=== PATIENT | female | born 1945 | race Hispanic/Latino ===

== ENCOUNTER → 2020-01-14 | Day surgery (SDC) | payer MEDICARE ==
[~2020-01-14] MED LIST: ACETAMINOPHEN325 M1 PO; ASPIRIN EC81 MG PO; BETIMOL5 M1 OP; BISACODYL5 MG PO; CLONIDINE HCL0.1 MG PO; ELIQUIS5 MG PO; ERYTHROMYCIN250 M1 PO; FENTANYL CITRATE/PF 100MCG/2 ML INJ ONE; FERROUS SULFAT325 MG PO; HYOSCYAMINE 0.125 MG TAB ONE; IOPAMIDOL 370 MG/ML 200 ML INFUS..BTL INJ ONE; IRON PO; LASIX20 MG PO; LATANOPROST2.5 ML OP; LIDOCAINE HCL 2% LOCAL INJ 5 ML SDV VIAL INJ ONE; MAGNESIUM CITR296 ML PO; METOPROLOL TART50 MG PO; NITROGLYCERIN0.4 MG TOP; NITROGLYCERIN1 EAC1 TD; NOVOLOG100 UNIT/1 SC; NOVOLOG100 UNIT/1 SQ; PANTOPRAZOLE SO20 MG PO; PHENYLEPHRINE HCL 1% 10 MG/ML VIAL ONE; POTASSIUM CHLO20 ME1 PO; PROPOFOL IV EMULSION 10 MG/ML 20 ML VIAL ONE; SODIUM CHLORIDE 0.9% 50ML 50 ML ONE; TRADJENTA5 MG PO; TRAZODONE HCL50 MG PO; VESICARE5 MG PO; VITAMIN B-121000 MCG PO; ZOFRAN4 MG PO; vitamin d PO
[2020-01-14 14:45] VITALS: BP 117/74
== END | disposition home or self-care (01) ==
LOC: OR 11:45
PROVIDERS: ATTEND Internal Medicine Gastroenterology
DX: D64.9 Anemia, unspecified (principal); D12.5 Benign neoplasm of sigmoid colon; D12.3 Benign neoplasm of transverse colon; K31.7 Polyp of stomach and duodenum; K29.70 Gastritis, unspecified, without bleeding; K20.9 Esophagitis, unspecified; K44.9 Diaphragmatic hernia without obstruction or gangrene; K57.30 Diverticulosis of large intestine without perforation or abscess without bleeding; K64.8 Other hemorrhoids; R63.4 Abnormal weight loss; I69.354 Hemiplegia and hemiparesis following cerebral infarction affecting left non-dominant side; I10 Essential (primary) hypertension; E11.9 Type 2 diabetes mellitus without complications; Z79.82 Long term (current) use of aspirin; Z79.02 Long term (current) use of antithrombotics/antiplatelets; Z80.0 Family history of malignant neoplasm of digestive organs
CPT/HCPCS: 36415; 43239; 45380; 45381; 45385; 74177; 82948; 88305; 88312; 88331; J2001; J2370; J2704; J3010; Q9967; 45378; 45384

== ENCOUNTER 2020-01-16 18:15 | Inpatient (IN) | payer MEDICARE, OTHER ==
[~2020-01-16] VITALS: Ht 152.4 cm; Wt 68.0 kg
[~2020-01-16 18:15] MED LIST changes: -ELIQUIS5 MG PO; -ERYTHROMYCIN250 M1 PO; -FENTANYL CITRATE/PF 100MCG/2 ML INJ ONE; -HYOSCYAMINE 0.125 MG TAB ONE; -IOPAMIDOL 370 MG/ML 200 ML INFUS..BTL INJ ONE; -IRON PO; -LASIX20 MG PO; -LIDOCAINE HCL 2% LOCAL INJ 5 ML SDV VIAL INJ ONE; -NITROGLYCERIN0.4 MG TOP; -NOVOLOG100 UNIT/1 SQ; -PHENYLEPHRINE HCL 1% 10 MG/ML VIAL ONE; -POTASSIUM CHLO20 ME1 PO; -PROPOFOL IV EMULSION 10 MG/ML 20 ML VIAL ONE; -SODIUM CHLORIDE 0.9% 50ML 50 ML ONE; -ZOFRAN4 MG PO
--- OUTSIDE RECORDS SUMMARY | 2020-01-16 18:44 | XMS REPORT | Continuity of Care Document ---
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 Allergies, Adverse Reactions, Alerts This patient has no known allergies or adverse reactions. Medications This patient has no known medications. Procedures This patient has no known procedures. Results Test Description Test Time Test Comments Results Result Comments Source CT ABDOMEN/PELVIS W 2020-01-14 16:11:00 [facility] [address] [place] [address] Patient Name: CALVIN CARVER MR #: [id number] : 1945 Age/Sex: 74/F Req #: [id number] Adm Physician: Ordered by: ANA DOBSON MD Report #: [id number] Location: OR Room/Bed: Procedure: [id number] CT/CT ABDOMEN/PELVIS W Exam Date: 01/14/20 Exam Time: 1500 REPORT STATUS: Signed EXAM: CT Abdomen and Pelvis WITH intravenous contrast INDICATION: Gastric ulcer, anemia COMPARISON: None. TECHNIQUE: Abdomen and pelvis were scanned utilizing a multidetector helical scanner from the lung base to the pubic symphysis after administration of IV contrast. Coronal and sagittal reformations were obtained. Routine protocol was performed. Scan was performed during portal venous phase. IV CONTRAST: 100mL of Isovue 370 ORAL CONTRAST: Water RADIATION DOSE: Total DLP: 439 mGy*cm Dose modulation, iterative reconstruction, and/or weight based adjustment of the mA/kV was utilized to reduce the radiation dose to as low as reasonably achievable. FINDINGS: LOWER THORAX: Normal. HEPATOBILIARY: Severe diffuse hepatic steatosis. No focal liver lesion. No biliary ductal dilation. Multiple gallstones in the gallbladder. No definite CT evidence of cholecystitis. SPLEEN: No splenomegaly. PANCREAS: No focal masses or ductal dilatation. ADRENALS: No adrenal nodules. KIDNEYS/URETERS: 2 mm punctate left lower pole renal calculus. No hydronephrosis or hydroureter. Multiple right renal cysts measure up to 2.1 cm. PELVIC ORGANS/BLADDER: Calcified uterine fibroids. PERITONEUM / RETRO PERITONEUM: No free air or fluid. 6.5 cm anterior abdominal wall defect containing loops of large and small bowel. LYMPH NODES: No lymphadenopathy. VESSELS: Moderate atherosclerotic calcifications of the nonaneurysmal abdominal aorta and major branches appear GI TRACT: 8.5 cm segment of masslike wall thickening involving the ascending colon with associated intussusception of the terminal ileum. There is scattered foci of air within the thickened wall. Scattered diverticulosis without CT evidence of diverticulitis. Multiple loops of mildly dilated small bowel measure up to 3 cm with associated air-fluid levels, consistent with partial obstruction. BONES AND SOFT TISSUES: Age- indeterminate compression fracture of L3. No additional fracture or dislocation. IMPRESSION: 8.5 cm segment of masslike wall thickening involving the ascending colon with associated intussusception of the terminal ileum. Scattered foci of air within the thickened colonic wall. Per discussion with Dr. Dobson there was injection of a small amount of submucosal air during the recent colonoscopy so this air may be iatrogenic rather than reflective of necrosis. Mildly dilated loops of upstream small bowel measure up to 3.0cm with air-fluid levels, consistent with at least partial small bowel obstruction. Multiple gallstones in the gallbladder without definite CT evidence of cholecystitis. Severe diffuse hepatic steatosis. No focal liver lesion. Age-indeterminate L3 compression fracture. The above findings were discussed with Dr. Dobson on 01/14/2020 4:11 PM, who responded indicating that the communication was understood. Signed by: Nelly Dinh MD on 01/14/2020 4:34 PM Dictated By: NELLY DINH MD 1157 Transcribed By: PAO on 01/14/201633 COPY TO: ANA DOBSON MD
[2020-01-16] MEDS ORDERED: ENOXAPARIN INJ 80 MG/0.8 ML SYR SC ONE (18:45)
--- NOTE | 2020-01-16 18:52 | Emergency Department Note ---
History of Present Illnes History of Present Illness Chief Complaint: General Medicine Complaints History of Present Illness This is a 74 year old female FROM [facility] AT [place] FOR EVALUATION OF A DVT; PATIENT HAD AN ULTRASOUND YESTERDAY. PATIENT DENIES ANY PAIN, APPEARS IN NO DISTRESS, RESP EVEN AND NONLABORED. i spoke with dr lewis nolan, he wants pt evaluated for pulmonary embolism. 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 Onset (how long ago): day(s) (2) Location: bilateral leg swelling Quality: swelling Radiation: Reports non-radiation Severity: mild Onset quality: gradual Duration (how long): day(s) (2) Timing of current episode: constant Progression: unchanged Chronicity: new Context: Reports other (had venous doppler yesterday, results returned today positive for bilateral dvt); Denies recent illness, Denies recent surgery, Denies trauma/injury Relieving factors: none Exacerbating factors: none Associated symptoms: Reports denies other symptoms Treatments prior to arrival: none Past Medical/Family History Physician Review I have reviewed the patient's past medical and family history. Any updates have been documented here. Past Medical History Recent Fever: No Clinical Suspicion of Infectio: No New/Unexplained Change in Ment: No Past Medical History: Diabetes, Anemia, Depression, Other Mental Illness, Osteoarthritis Other Medical History: GLAUCOMA Social History Smoking Cessation: Never Smoker Alcohol Use: None Any Illegal Drug Use: No Family History Family history of heart diseas: No Review of Systems Review of Systems Constitutional: Reports no symptoms EENTM: Reports no symptoms Cardiovascular: Reports no symptoms Respiratory: Reports no symptoms Gastrointestinal: Reports no symptoms Genitourinary: Reports no symptoms Musculoskeletal: Reports as per HPI Integumentary: Reports no symptoms Neurological: Reports no symptoms Psychological: Reports no symptoms Endocrine: Reports no symptoms Hematological/Lymphatic: Reports no symptoms Physical Exam Related Data Allergies: Coded Allergies: No Known Allergies (Unverified , 01/16/20) Triage Vital Signs Vital Signs Date Time Temp Pulse Resp B/P (MAP) Pulse Ox O2 Delivery O2 Flow Rate FiO2 01/16/20 18:26 98.9 89 18 109/77 99 Room Air Vital signs reviewed: Yes Physical Exam CONSTITUTIONAL Constitutional: Present well-developed, Present well-nourished HENT HENT: Present normocephalic, Present atraumatic, Present oropharynx clear/moist, Present nose normal HENT L/R: Present left ext ear normal, Present right ext ear normal EYES Eyes: Reports PERRL, Reports conjunctivae normal NECK Neck: Present ROM normal PULMONARY Pulmonary: Present effort normal, Present breath sounds normal CARDIOVASCULAR Cardiovascular: Present regular rhythm, Present heart sounds normal, Present capillary refill normal, Present normal rate GASTROINTESTINAL Abdominal: Present soft, Present nontender, Present bowel sounds normal GENITOURINARY Genitourinary: Present exam deferred SKIN Skin: Present warm, Present dry MUSCULOSKELETAL Musculoskeletal: Present ROM normal, Present edema (non pitting) NEUROLOGICAL Neurological: Present alert, Present oriented x 3, Present no gross motor or sensory deficits PSYCHOLOGICAL Psychological: Present mood/affect normal, Present judgement normal Results Laboratory Laboratory Laboratory Tests Test 01/16/20 19:15 White Blood Count 10.11 x10e3/uL (4.8-10.8) Red Blood Count 3.66 x10e6/uL (3.6-5.1) Hemoglobin 10.9 g/dL (12.0-16.0) Hematocrit 33.9 % (34.2-44.1) Mean Corpuscular Volume 92.6 fL (81-99) Mean Corpuscular Hemoglobin 29.8 pg (28-32) Mean Corpuscular Hemoglobin Concent 32.2 g/dL (31-35) Red Cell Distribution Width 14.9 % (11.7-14.4) Platelet Count 283 x10e3/uL (140-360) Neutrophils (%) (Auto) 78.0 % (38.7-80.0) Lymphocytes (%) (Auto) 12.7 % (18.0-39.1) Monocytes (%) (Auto) 8.4 % (4.4-11.3) Eosinophils (%) (Auto) 0.2 % (0.0-6.0) Basophils (%) (Auto) 0.3 % (0.0-1.0) Neutrophils # (Auto) 7.9 (2.1-6.9) Lymphocytes # (Auto) 1.3 (1.0-3.2) Monocytes # (Auto) 0.9 (0.2-0.8) Eosinophils # (Auto) 0.0 (0.0-0.4) Basophils # (Auto) 0.0 (0.0-0.1) Absolute Immature Granulocyte (auto 0.04 x10e3/uL (0-0.1) Prothrombin Time 18.8 seconds (11.9-14.5) Prothromb Time International Ratio 1.49 Activated Partial Thromboplast Time 39.3 seconds (23.8-35.5) Sodium Level 137 mmol/L (136-145) Potassium Level 3.3 mmol/L (3.5-5.1) Chloride Level 103 mmol/L (98-107) Carbon Dioxide Level 25 mmol/L (22-29) Anion Gap 12.3 mmol/L (8-16) Blood Urea Nitrogen 18 mg/dL (7-26) Creatinine 1.01 mg/dL (0.57-1.11) Estimat Glomerular Filtration Rate 54 ML/MIN (60-) BUN/Creatinine Ratio 18 (6-25) Glucose Level 152 mg/dL (74-118) Calcium Level 7.6 mg/dL (8.4-10.2) Lab results reviewed: Yes Imaging Imaging results reviewed: Yes Impressions Procedure: [id number] CT/CT CHEST W Exam Date: 01/16/20 Exam Time: 2014 REPORT STATUS: Signed EXAM: CT Chest WITH contrast (PE Protocol) INDICATION: pe protocol COMPARISON: None TECHNIQUE: Chest was scanned utilizing a multidetector helical scanner from the lung apex through the level of the diaphragm after administration of IV contrast. Thin section reconstructions were obtained with special concentration on the pulmonary arteries. Coronal and sagittal reformations were obtained. Dose modulation, iterative reconstruction, and/or weight based adjustment of the mA/kV was utilized to reduce the radiation dose to as low as reasonably achievable. Pulmonary embolism protocol was performed. IV CONTRAST: 100 mL of Omnipaque 350 COMPLICATIONS: None RADIATION DOSE: Total DLP: 490.59 mGy*cm Estimated effective dose: (DLP x 0.014 x size factor) mSv CTDIvol has been reviewed. It is below the limits set by the Radiation Protocol Committee (RPC). FINDINGS: LINES/ TUBES: None. LUNGS AND AIRWAYS: There are filling defects within the segmental branch of the right middle lobe (series 2, image 50) and subsegmental branch of right lower lobe (series 2, image 73) compatible with pulmonary emboli. The lungs are unremarkable. Airways are normal. PLEURA: The pleural spaces are clear. HEART AND MEDIASTINUM: The left thyroid lobe is not well seen/atrophic. No mediastinal, hilar or axillary lymphadenopathy. The heart is normal in size.. There is no pericardial effusion. . Main pulmonary artery measures 2.5 cm in diameter and the ascending aorta measures 3.4 cm. UPPER ABDOMEN: There is marked wall thickening of the stomach could be due to gastritis. There are gallstones but no evidence of cholecystitis. Hepatic steatosis. BONES: There are degenerative changes in the spine. SOFT TISSUES: Unremarkable. IMPRESSION: Pulmonary emboli in the segmental branch of the right middle lobe and subsegmental branch of right lower lobe. No evidence of pulmonary infarction or right-sided heart is strain. Cholelithiasis with no evidence of cholecystitis. Moderate wall thickening of the stomach could be due to gastritis. Signed by: Nathaniel Cortes MD on 01/16/2020 9:11 PM Dictated By: NATHANIEL CORTES MD 10 Transcribed By: PAO on 01/16/202110 COPY TO: FRANKLIN SPENCE MD~ Procedures 12 Lead ECG Interpretation ECG Interpretation : ECG: ECG 1 Visitor Services Representative: Interpreted by ED physician Date: Jan 16, 2020 Time: 21:26 Prior ECG tracings: reviewed Rhythm: sinus rhythm Rate: normal BPM: 80 QRS axis: left Conduction: incomplete RBBB ST segments normal: No (NONSPECIFIC CHANGES) T waves normal: No (NON SPECIFIC CHANGES) Clinical Impression: abnormal ECG Assessment & Plan Medical Decision Making MDM pt with new diagnosis of bilateral dvt, sent to be evaluated for pe ct chest w ordered to eval for pulmonary embolism lovenox 70 mg sq ordered I SPOKE WITH DR Ji DOS SANTOS LOVENOX 70 MG SQ TIMES ONE NO OTHER BLOOD THINNERS AT THIS TIME I SPOKE WITH DR Lewis NOLAN AND DR Thom KAPLAN ADMIT INPATIENT Assessment & Plan Final Impression: (1) DVT (deep venous thrombosis) (2) Pulmonary embolus (3) Colonic mass Depart Disposition: ADMITTED Last Vital Signs Date Time Temp Pulse Resp B/P (MAP) Pulse Ox O2 Delivery O2 Flow Rate FiO2 01/16/20 18:26 98.9 89 18 109/77 99 Room Air Home Meds Reported Medications [vitamin d] No Conflict Check, 2000 UNITS PO DAILY 01/11/20 Cyanocobalamin (VITAMIN B-12) 1,000 Mcg Tab, 500 MCG PO DAILY, #30 TAB 01/11/20 Solifenacin Succinate (VESICARE) 5 Mg Tablet, 5 MG PO DAILY, #30 TAB 01/11/20 Trazodone Hcl (TRAZODONE HCL) 50 Mg Tablet, 50 MG PO HS, #30 TAB 01/11/20 Linagliptin (TRADJENTA) 5 Mg Tablet, 5 MG PO HS 01/11/20 Timolol (BETIMOL) 5 Ml Drops, 1 DROP OP HS 01/11/20 Pantoprazole Sodium (PANTOPRAZOLE SODIUM) 20 Mg Tablet.dr, 40 MG PO DAILY 01/11/20 Insulin Aspart (NOVOLOG) 100 Unit/1 Ml Cartridge, 5 UNITS SC BID, UNITS 01/11/20 Nitroglycerin (NITROGLYCERIN PATCH) 1 Each Patch.td24, 1 PATCH TD DAILY 01/11/20 Metoprolol Tartrate (METOPROLOL TARTRATE) 50 Mg Tablet, 50 MG PO BID, TAB 01/11/20 Magnesium Citrate (MAGNESIUM CITRATE) 296 Ml Solution, 10 OZ PO HS 01/11/20 Latanoprost (LATANOPROST) 2.5 Ml Drops, 2.5 ML OP HS, BOTTLE 01/11/20 Ferrous Sulfate (FERROUS SULFATE) 325 Mg Tablet, 325 MG PO BID 01/11/20 Clonidine Hcl (CLONIDINE HCL) 0.1 Mg Tablet, 1 TAB PO BID, #60 TAB 01/11/20 Bisacodyl (BISACODYL) 5 Mg Tablet.dr, 20 MG PO DAILY, TAB 01/11/20 Aspirin (ASPIRIN EC) 81 Mg Tablet.dr, 81 MG PO DAILY, #30 TAB 01/11/20 Acetaminophen (ACETAMINOPHEN) 325 Mg Tablet, 325 MG PO Q6H PRN for ELEVATED TEMPERATURE for 5 Days, TAB 01/11/20 Medications in the ED Enoxaparin Sodium 70 mg ONCE ONCE SC ; Start 01/16/20 at 18:45; Stop 01/16/20 at 18:46; Status UNV FRANKLIN SPENCE MD Jan 16, 2020 18:52
[2020-01-16 19:22] LABS: BASOPHILS % 0.3 % (0.0-1.0); EOSINOPHILS % 0.2 % (0.0-6.0); HEMATOCRIT 33.9 % (34.2-44.1); HEMOGLOBIN 10.9 g/dL (12.0-16.0); LYMPHOCYTES # (AUTO) 1.3 (1.0-3.2); LYMPHOCYTES % 12.7 % (18.0-39.1); MEAN CORPUSCULAR HEMOGLOBIN 29.8 pg (28-32); MEAN CORPUSCULAR HGB CONC 32.2 g/dL (31-35); MEAN CORPUSCULAR VOLUME 92.6 fL (81-99); MONOCYTES # (AUTO) 0.9 (0.2-0.8); MONOCYTES % 8.4 % (4.4-11.3); NEUTROPHILS # (AUTO) 7.9 (2.1-6.9); PLATELET COUNT 283 x10e3/uL (140-360); RED BLOOD COUNT 3.66 x10e6/uL (3.6-5.1); RED CELL DISTRIBUTION WIDTH 14.9 % (11.7-14.4)
[2020-01-16 19:31] LABS: INR 1.49; PROTHROMBIN TIME 18.8 seconds (11.9-14.5)
[2020-01-16 19:32] LABS: PARTIAL THROMBOPLASTIN TIME 39.3 seconds (23.8-35.5)
[2020-01-16 19:38] LABS: ANION GAP 12.3 mmol/L (8-16); CALCIUM 7.6 mg/dL (8.4-10.2); CREATININE, SERUM 1.01 mg/dL (0.57-1.11); POTASSIUM 3.3 mmol/L (3.5-5.1)
[2020-01-16] MEDS ORDERED: IOPAMIDOL 370 MG/ML 200 ML INFUS..BTL INJ ONE (20:41)
[2020-01-16] MEDS ORDERED: SODIUM CHLORIDE 0.9% 50ML 50 ML ONE (20:41)
--- NOTE | 2020-01-16 21:15 | Diagnostic Imaging Report ---
EXAM: CT Chest WITH contrast (PE Protocol) INDICATION: pe protocol COMPARISON: None TECHNIQUE: Chest was scanned utilizing a multidetector helical scanner from the lung apex through the level of the diaphragm after administration of IV contrast. Thin section reconstructions were obtained with special concentration on the pulmonary arteries. Coronal and sagittal reformations were obtained. Dose modulation, iterative reconstruction, and/or weight based adjustment of the mA/kV was utilized to reduce the radiation dose to as low as reasonably achievable. Pulmonary embolism protocol was performed. IV CONTRAST: 100 mL of Omnipaque 350 COMPLICATIONS: None RADIATION DOSE: Total DLP: 490.59 mGy*cm Estimated effective dose: (DLP x 0.014 x size factor) mSv CTDIvol has been reviewed. It is below the limits set by the Radiation Protocol Committee (RPC). FINDINGS: LINES/ TUBES: None. LUNGS AND AIRWAYS: There are filling defects within the segmental branch of the right middle lobe (series 2, image 50) and subsegmental branch of right lower lobe (series 2, image 73) compatible with pulmonary emboli. The lungs are unremarkable. Airways are normal. PLEURA: The pleural spaces are clear. HEART AND MEDIASTINUM: The left thyroid lobe is not well seen/atrophic. No mediastinal, hilar or axillary lymphadenopathy. The heart is normal in size.. There is no pericardial effusion. . Main pulmonary artery measures 2.5 cm in diameter and the ascending aorta measures 3.4 cm. UPPER ABDOMEN: There is marked wall thickening of the stomach could be due to gastritis. There are gallstones but no evidence of cholecystitis. Hepatic steatosis. BONES: There are degenerative changes in the spine. SOFT TISSUES: Unremarkable. IMPRESSION: Pulmonary emboli in the segmental branch of the right middle lobe and subsegmental branch of right lower lobe. No evidence of pulmonary infarction or right-sided heart is strain. Cholelithiasis with no evidence of cholecystitis. Moderate wall thickening of the stomach could be due to gastritis. Signed by: Nathaniel Saavedra MD on 01/16/2020 9:11 PM
[2020-01-16] MEDS ORDERED: ONDANSETRON HCL INJ 2MG/ML 2ML 2 MG/ML VIAL IV PRN (21:30)
[2020-01-16] MEDS ORDERED: DEXTROSE 50% SYRINGE 50 ML IV PRN (21:30)
[2020-01-16] MEDS ORDERED: SODIUM CHLORIDE FLUSH 10 ML SYR INJ PRN (21:30)
[2020-01-16] MEDS ORDERED: ELIQUIS5 MG PO (21:34)
[2020-01-16] MEDS ORDERED: TRADJENTA5 MG PO (21:34)
[2020-01-16] MEDS ORDERED: NOVOLOG100 UNIT/1 SC (21:34)
[2020-01-16] MEDS ORDERED: VITAMIN B-121000 MCG PO (21:34)
[2020-01-16] MEDS ORDERED: VESICARE5 MG PO (21:34)
--- OUTSIDE RECORDS SUMMARY | 2020-01-16 21:46 | XMS REPORT | Continuity of Care Document ---
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 Allergies, Adverse Reactions, Alerts This patient has no known allergies or adverse reactions. Medications This patient has no known medications. Procedures This patient has no known procedures. Results Test Description Test Time Test Comments Results Result Comments Source CT CHEST W 2020-01-16 21:02:00 [place] [address] Patient Name: CALVIN CARVER MR #: [id number] : 1945 Age/Sex: 74/F Req #: [id number] Adm Physician: Ordered by: FRANKLIN SPENCE MD Report #: [id number] Location: ER Room/Bed: Procedure: [id number] CT/CT CHEST W Exam Date: 01/16/20 Exam Time: 2014 REPORT STATUS: Signed EXAM: CT Chest WITH contrast (PE Protocol) INDICATION: pe protocol COMPARISON: None TECHNIQUE: Chest was scanned utilizing a multidetector helical scanner from the lung apex through the level of the diaphragm after administration of IV contrast. Thin section reconstructions were obtained with special concentration on the pulmonary arteries. Coronal and sagittal reformations were obtained. Dose modulation, iterative reconstruction, and/or weight based adjustment of the mA/kV was utilized to reduce the radiation dose to as low as reasonably achievable. Pulmonary embolism protocol was performed. IV CONTRAST: 100 mL of Omnipaque 350 COMPLICATIONS: None RADIATION DOSE: Total DLP: 490.59 mGy*cm Estimated effective dose: (DLP x 0.014 x size factor) mSv CTDIvol has been reviewed. It is below the limits set by the Radiation Protocol Committee (RPC). FINDINGS: LINES/ TUBES: None. LUNGS AND AIRWAYS: There are filling defects within the segmental branch of the right middle lobe (series 2, image 50) and subsegmental branch of right lower lobe (series 2, image 73) compatible with pulmonary emboli. The lungs are unremarkable. Airways are normal. PLEURA: The pleural spaces are clear. HEART AND MEDIASTINUM: The left thyroid lobe is not well seen/atrophic. No mediastinal, hilar or axillary lymphadenopathy. The heart is normal in size.. There is no pericardial effusion. . Main pulmonary artery measures 2.5 cm in diameter and the ascending aorta measures 3.4 cm. UPPER ABDOMEN: There is marked wall thickening of the stomach could be due to gastritis. There are gallstones but no evidence of cholecystitis. Hepatic steatosis. BONES: There are degenerative changes in the spine. SOFT TISSUES: Unremarkable. IMPRESSION: Pulmonary emboli in the segmental branch of the right middle lobe and subsegmental branch of right lower lobe. No evidence of pulmonary infarction or right-sided heart is strain. Cholelithiasis with no evidence of cholecystitis. Moderate wall thickening of the stomach could be due to gastritis. Signed by: Nathaniel Cortes MD on 01/16/2020 9:11 PM Dictated By: NATHANIEL CORTES MD 10 Transcribed By: PAO on 01/16/202110 COPY TO: FRANKLIN SPENCE MD CT ABDOMEN/PELVIS W 2020-01-14 16:11:00 [place] [address] Patient Name: CALVIN CARVER MR #: [id number] : 1945 Age/Sex: 74/F Req #: [id number] Adm Physician: Ordered by: ANA DOBSON MD Report #: [id number] Location: OR Room/Bed: Procedure: [id number] CT/CT ABDOMEN/PELVIS W Exam Date: 01/14/20 Exam [...] 4:34 PM Dictated By: NELLY DINH MD 1630 Transcribed By: PAO on 01/14/20 1634 COPY TO: ANA DOBSON MD
[2020-01-16 21:58] LABS: CREATINE KINASE MB 0.5 ng/mL (0-5.0)
--- NOTE | 2020-01-16 22:17 | NUR ---
Patient arrived to unit from ER via stretcher. Patient is reportedly blind. Vital signs stable, sinus rhythm in 80s per telemetry, no s/s of distress at this time. Oriented to room, hospital policies, and plan of care. Bed locked and in lowest position, side rails upx3, alarm on, call light placed within reach. Patient instructed to call for assistance if needed, verbalized understanding. All safety measures in place.
[2020-01-16 22:39] VITALS: BP 118/81
[2020-01-16 22:44] VITALS: BP 118/81
[2020-01-17] VITALS (8 sets, daily range): BP systolic 113–154; BP diastolic 70–89
--- NOTE | 2020-01-17 06:20 | NUR ---
Routine consult called to Dr. Francois. Spoke with . No new orders received at this time.
[2020-01-17 06:56] LABS: BASOPHILS # (AUTO) 0.1 (0.0-0.1); BASOPHILS % 0.7 % (0.0-1.0); EOSINOPHILS % 0.3 % (0.0-6.0); HEMOGLOBIN 10.8 g/dL (12.0-16.0); LYMPHOCYTES # (AUTO) 1.3 (1.0-3.2); LYMPHOCYTES % 14.6 % (18.0-39.1); MEAN CORPUSCULAR HEMOGLOBIN 30.7 pg (28-32); MEAN CORPUSCULAR HGB CONC 32.7 g/dL (31-35); MEAN CORPUSCULAR VOLUME 93.8 fL (81-99); MONOCYTES # (AUTO) 0.6 (0.2-0.8); NEUTROPHILS # (AUTO) 6.6 (2.1-6.9); NEUTROPHILS % 76.8 % (38.7-80.0); PLATELET COUNT 318 x10e3/uL (140-360); RED BLOOD COUNT 3.52 x10e6/uL (3.6-5.1)
--- NOTE | 2020-01-17 07:00 | NUR ---
Bedside report given to oncoming nurse. Patient resting quietly in bed, respirations even and unlabored, no s/s of distress at this time. All safety measures in place.
[2020-01-17 07:14] LABS: INR 1.44; PROTHROMBIN TIME 18.3 seconds (11.9-14.5)
[2020-01-17 07:15] LABS: PARTIAL THROMBOPLASTIN TIME 46.3 seconds (23.8-35.5)
[2020-01-17 07:24] LABS: ALANINE AMINOTRANSFERASE 9 IU/L (0-55); ALBUMIN 2.4 g/dL (3.5-5.0); ALKALINE PHOSPHATASE 71 IU/L (40-150); ANION GAP 11.3 mmol/L (8-16); BLOOD UREA NITROGEN 18 mg/dL (7-26); BUN/CREATININE RATIO 22 (6-25); CALCIUM 7.6 mg/dL (8.4-10.2); CARBON DIOXIDE 24 mmol/L (22-29); CHLORIDE 104 mmol/L (98-107); CREATININE, SERUM 0.83 mg/dL (0.57-1.11); EST GLOMERULAR FILTRATION RATE > 60 ML/MIN (60-); GLUCOSE 122 mg/dL (74-118); POTASSIUM 3.3 mmol/L (3.5-5.1); SODIUM 136 mmol/L (136-145)
[2020-01-17] MEDS: INSULIN REGULAR, HUMAN 100 UNIT/1 ML 3ML VIAL SQ SCH ×4 (07:30→20:26)
[2020-01-17 07:51] LABS: CREATINE KINASE MB 0.5 ng/mL (0-5.0)
[2020-01-17] MEDS: SODIUM CHLORIDE 0.9% 1000ML 1,000 ML IV SCH (10:45)
[2020-01-17] MEDS ORDERED: LIDOCAINE HCL 2% LOCAL 20 ML VIAL ONE (13:26)
[2020-01-17] MEDS ORDERED: FENTANYL CITRATE/PF 100MCG/2 ML INJ ONE (13:26)
[2020-01-17] MEDS ORDERED: MIDAZOLAM HCL 2 MG/2 ML VIAL ONE (13:26)
[2020-01-17] MEDS ORDERED: IOPAMIDOL 370 MG/ML 200 ML INFUS..BTL INJ ONE (13:27)
[2020-01-17] MEDS ORDERED: SODIUM CHLORIDE 0.9% 1000ML 1,000 ML ONE (13:27)
[2020-01-17] MEDS ORDERED: HEPARIN SOD/SOD CHLORIDE 2,000 ML ONE (13:27)
[2020-01-17 13:58] LABS: CREATINE KINASE MB 0.5 ng/mL (0-5.0)
[2020-01-17] MEDS ORDERED: DEXTROSE 50% SYRINGE 50 ML IV PRN (16:45)
[2020-01-17] MEDS ORDERED: ACETAMINOPHEN 325 MG TAB PO PRN (16:45)
--- NOTE | 2020-01-17 16:58 | NUR ---
bladder scan showed 373mL, inserted 16 fr mann per the orders of Dr. Shama Dobson
[2020-01-17] MEDS: METOPROLOL TARTRATE 50 MG TAB PO SCH (17:00)
[2020-01-17] MEDS: FERROUS SULFATE 325 MG TAB PO SCH (17:00)
[2020-01-17] MEDS ORDERED: METOPROLOL TARTRATE 25 MG TAB PO SCH (17:00)
--- NOTE | 2020-01-17 17:08 | Consultation ---
DATE OF CONSULTATION: Cardiac Consultation REASON FOR CONSULTATION: Extensive DVT, pulmonary embolism, colonic mass, consideration for surgery, prior CVAs, complex case. HISTORY OF PRESENT ILLNESS: Source of information, the patient's medical record, but more important, the patient's daughter, Ms. Cordova at phone #[phone]. Apparently, this is a 74-year-old lady, who is known with longstanding history of diabetes mellitus, hypertension, complication of diabetes mellitus including vision impairment. 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 The patient is having repeated fall. They were unable to take care of her. She is in [facility]. She needs quite a lot of care. She is to certain extent, not moving or not doing much of activities. Recently, she had workup for anemia, which revealed the presence of colonic mass. Most likely cancerous in origin. The patient is considered for surgery. The patient went yesterday to see Dr. Gong in preparation of surgery. She was having shortness of breath, leg swelling, and she was not good. He reviewed her record, he reviewed her data and he found that the patient also diagnosed on the with extensive DVT of both lower extremities and she was started on Eliquis. Because of the poor status and poor condition, he advised her to be admitted. The patient was admitted to the hospital. Venous Doppler scan in our facility showed extensive DVT of lower extremities as well as pulmonary embolism in the right lung in more than one lobe. The patient was given one dose of Lovenox and cardiac consultation is obtained. I visited with the patient, who is having mild respiratory distress. She cannot give much of information. She does not know much about her history definitely because she is demented. I talked to her daughter, who gave me all the above mentioned information. The patient basically having easy fatigability and shortness of breath on exertion, almost nonambulatory, totally dependent on her care. She had history of prior CVA x3 with extreme left-sided weakness. She is having repeated fall. She is almost nonambulatory. She is not aware of coronary artery disease, however, she had some workup 5 years ago. REVIEW OF SYSTEMS: Extensive and all taken from the daughter. GENERAL: Failure to thrive, weakness. HEENT: Very very poor vision, decreased hearing. PULMONARY AND CARDIAC: Class III shortness of breath on exertion, chest tightness, easy fatigability. Recently, the shortness of breath is progressively worse as well as swelling legs. No cough. No hemoptysis. GI: Constipation, incontinence. : Definitely urine incontinence, using diaper. MUSCULOSKELETAL: Aches and pain. NEUROLOGICAL: The patient is demented and she is having left body sided weakness with very limited motion on that side. ENDOCRINE: The patient is diabetic. HEMATOLOGY: Easy bruising, but no history of massive bleed. SOCIAL HISTORY: She lives in a [facility]. She is nonsmoker and non-alcohol drinker. Excellent family support. HOME MEDICATIONS: Include Lopressor 50 mg twice a day, nitroglycerin patch, clonidine, aspirin, Eliquis, iron sulfate, Protonix, Tradjenta, VESIcare, trazodone, and eye drops for glaucoma. ALLERGIES: NONE. PAST MEDICAL HISTORY: 1. Diabetes mellitus with severe end-organ damage. 2. Hypertension. 3. Chronic anemia. 4. Colonic mass. 5. CVA x3. 6. Residual severe left body sided weakness. 7. Dementia. 8. Repeated fall. 9. Coronary artery disease, but no need for intervention. 10. Admission with extensive bilateral DVT. 11. Pulmonary embolism documented by CT scan. FAMILY HISTORY: Strongly positive for diabetes mellitus, hypertension, and coronary artery disease. PHYSICAL EXAMINATION: GENERAL: Nice lady, totally confused. VITAL SIGNS: Height of 5 feet, weight of 150 pounds. Blood pressure 150/80, heart rate of 60, respiratory rate of 24, and temperature of 97.9 Fahrenheit. HEENT: Remarkable for decreased hearing and decreased vision. NECK: No elevation of jugular venous pulsation. CHEST: Bilateral crackles. HEART: PMI 5th left intercostal space. Normal first and second heart sound. ABDOMEN: Soft with good bowel sounds. EXTREMITIES: Swelling of bilateral extremity, right greater than left. NEUROLOGIC: Able to move right body with severe left body sided weakness. PSYCH: The patient is forgetful, pleasantly trying to answer the question. LABORATORY DATA: Sodium of 136, potassium 3.3, BUN of 18, and creatinine of 0.8. Hematocrit 33% and hemoglobin 10.8. CT chest showing pulmonary emboli in the right lung in multiple lobes. EKG showing sinus rhythm and nonspecific ST changes. Venous doppler showing extensive DVT of lower extremities. IMPRESSION AND PLAN: 1. Extensive deep venous thrombosis of the lower extremities with pulmonary embolism with respiratory distress. 2. Colonic mass. 3. Anemia. 4. Hypertension. 5. Diabetes mellitus with severe end-organ damage. 6. Multiple cerebrovascular accidents with sequela of left body sided weakness. 7. Very high probability of coronary artery disease. 8. Hypertension. From a cardiac point of view, the plan will be and we discussed the case with Dr. Gong, who is planning to do a surgery on her shortly in maybe a couple of weeks and with her daughter and option between palliative care or proceeding with IVC filter, cardiac stress test, echocardiogram in preparation for her planned surgery. Definitely anticoagulation needs to be done. High risk for complication definitely explained. Explained there is probably a clot in transition. All this was discussed and explained. Questions are answered. Ms. Cordova wants to proceed with IVC filter and workup preparation for her surgery. As soon as we establish a filter, we will resume anticoagulation. Procedure risks, benefit, IVC filter, need of removal, etc., all this discussed and explained. This was lengthy visit trying to gather the data, talk to the family, coordinating care, etc. Time about taking care of this patient of more than 90 minutes. MD CHRISTEL Armas/JAD /[id number]
[2020-01-17] MEDS ORDERED: REGADENOSON 0.4 MG/5 ML SYR IV ONE (17:36)
--- NOTE | 2020-01-17 17:45 | NUR ---
patient is in nuclear med getting resting portion of the stress test done. Dr farfan ordered no beta blockers and no caffeine, evening metoprolol was held.
[2020-01-17] MEDS: CLONIDINE HCL 0.1 MG TAB PO SCH (18:25)
--- NOTE | 2020-01-17 19:00 | NUR ---
Resumed care of patient. Patient awake and resting in bed, no s/s of distress at this time. Capellan catheter patent and draining cloudy yellow urine to gravity. All safety measures in place.
[2020-01-17] MEDS: LATANOPROST(OPTH) 2.5 ML BTL OP SCH (20:35)
[2020-01-17] MEDS: TRAZODONE HCL 50 MG TAB PO SCH (20:35)
--- NOTE | 2020-01-17 21:18 | Operative Report ---
DATE OF PROCEDURE: 01/17/2020 SURGEON: Madhu Francois MD TITLE OF PROCEDURE: Cardiac catheterization and an IVC filter placement. PATIENT CLINICAL PROFILE: This is a 74-year-old female, who was found to have significant clot burden in the bilateral lower extremities on venous Doppler as well as evidence of pulmonary embolism without RV strain in the segmental right middle lobe and subsegmental right lower lobe pulmonary arteries, who is referred for IVC filter due to her clot burden as well as her candidacy for oral anticoagulation. Thus, the patient came to the cardiac catheterization lab. PREPROCEDURE DIAGNOSES: Bilateral acute venous thromboembolism of the femoral veins and bilateral lower extremity veins, unspecified, acute segmental and subsegmental right pulmonary artery pulmonary embolism without RV strain. POSTPROCEDURE DIAGNOSES: Bilateral acute venous thromboembolism of the femoral veins and bilateral lower extremity veins, unspecified, acute segmental and subsegmental right pulmonary artery pulmonary embolism without RV strain. PROCEDURES PERFORMED: Ultrasound-guided left common femoral vein access with a micropuncture needle, IVC filter deployment with a Tiffanie vena cava filter to the inferior vena cava below the level of the bilateral renal veins. IVC filter contrast angiography. RADIO COMMUNICATION COORDINATOR: Jocelin Francois MD ANESTHESIA USED: Moderate sedation. DESCRIPTION OF PROCEDURE: The patient was brought to the cardiac catheterization laboratory after risks, benefits, and alternatives were discussed and she was agreeable to proceed with the planned intervention. The patient's bilateral groins were prepped and an ultrasound machine was used to determine the optimal area for insertion of the sheath for our IVC filter placement. We used the ultrasound to determine that the left femoral vein was the optimal place, which was free of clot in the superior portion. We thus used a micropuncture needle and gained accessed to the left femoral vein after which we used a 6-Czech sheath and inserted it to dilate the tract. Moderate sedation was given for a period of greater than 15-minute duration with monitoring of the patient's vitals, oxygen saturation, telemetry, non-invasive blood pressure, capnography by the press operator automatic and circulating nurse. After placement of the sheath, we advanced a 0.035 J wire up to the level of IVC ensuring that we were within the IVC proper up to the level of the right atrium. We then advanced the Toombs vena cava filter sheath over the dilator to the inferior vena cava to the level below the bilateral renal veins. The dilator and the wire were removed and contrast angiography was performed through the insertion sheath, which demonstrated adequate placement below the level of the bilateral renal veins. We then flushed the system with the IVC filter through the Tuohy. We then subsequently advanced this and unsheathed it into a satisfactory position below the level of the bilateral renal veins. Subsequently, we then removed the system over the J wire and applied manual pressure to achieve hemostasis to the left common femoral vein. FINDINGS: Successful placement of Tiffanie IVC filter to the inferior vena cava. DISPOSITION: Return the patient to the labor relations analyst area and monitor for complications. COMPLICATIONS: None. SPECIMENS: None. PLAN: Continue care and at least 3 to 4 hours of bedrest. Madhu Francois MD OJ/MODL /[id number] MTDD
[2020-01-18] VITALS (7 sets, daily range): BP systolic 99–130; BP diastolic 48–79
[2020-01-18] MEDS: SODIUM CHLORIDE 0.9% 1000ML 1,000 ML IV SCH ×2 (04:41→20:56)
[2020-01-18] MEDS: METOPROLOL TARTRATE 50 MG TAB PO SCH ×2 (05:00→17:23)
--- NOTE | 2020-01-18 05:26 | NUR ---
Metoprolol held as ordered by MD. Patient scheduled for stress test later this morning.
[2020-01-18 06:36] LABS: BASOPHILS % 0.5 % (0.0-1.0); EOSINOPHILS # (AUTO) 0.1 (0.0-0.4); EOSINOPHILS % 0.6 % (0.0-6.0); HEMATOCRIT 34.1 % (34.2-44.1); HEMOGLOBIN 10.7 g/dL (12.0-16.0); LYMPHOCYTES # (AUTO) 1.2 (1.0-3.2); MEAN CORPUSCULAR HEMOGLOBIN 29.7 pg (28-32); MEAN CORPUSCULAR HGB CONC 31.4 g/dL (31-35); MEAN CORPUSCULAR VOLUME 94.7 fL (81-99); MONOCYTES # (AUTO) 0.7 (0.2-0.8); MONOCYTES % 8.6 % (4.4-11.3); NEUTROPHILS # (AUTO) 6.5 (2.1-6.9); NEUTROPHILS % 75.8 % (38.7-80.0); PLATELET COUNT 274 x10e3/uL (140-360)
[2020-01-18 06:54] LABS: ALANINE AMINOTRANSFERASE 9 IU/L (0-55); ALBUMIN 2.1 g/dL (3.5-5.0); ALKALINE PHOSPHATASE 62 IU/L (40-150); ANION GAP 11.7 mmol/L (8-16); BLOOD UREA NITROGEN 16 mg/dL (7-26); BUN/CREATININE RATIO 22 (6-25); CALCIUM 7.1 mg/dL (8.4-10.2); CARBON DIOXIDE 23 mmol/L (22-29); CHLORIDE 107 mmol/L (98-107); CREATININE, SERUM 0.72 mg/dL (0.57-1.11); EST GLOMERULAR FILTRATION RATE > 60 ML/MIN (60-); GLUCOSE 93 mg/dL (74-118); POTASSIUM 3.7 mmol/L (3.5-5.1); SODIUM 138 mmol/L (136-145)
[2020-01-18] MEDS: INSULIN REGULAR, HUMAN 100 UNIT/1 ML 3ML VIAL SQ SCH ×4 (07:30→21:00)
--- NOTE | 2020-01-18 07:38 | NUR ---
PATIENT IN BED RESTING WITH EYES CLOSED, NO DISTRESS NOTED. IV FLUID INFUSING ORDERED, ROBERTSON CATHETER WITH CLEAR YELLOW URINE. BED IN LOWER POSITION, CALL LIGHT AT REACH.
[2020-01-18] MEDS: FERROUS SULFATE 325 MG TAB PO SCH ×2 (09:00→17:23)
[2020-01-18] MEDS: CLONIDINE HCL 0.1 MG TAB PO SCH ×2 (09:00→17:00)
--- NOTE | 2020-01-18 09:40 | NUR ---
PATIENT OFF UNIT FOR A PROCEDURE.
--- NOTE | 2020-01-18 12:15 | NUR ---
PATIENT BACK TO UNIT FROM NUCLEAR MEDICINE, HAD A STRESS TEST. DENIED PAIN AT THIS TIME. REPOSITIONED IN BED. V/S 97.6-110-18-99/68 AND 96% ON RA.
[2020-01-18] MEDS: SOLIFENACIN SUCCINATE 5 MG TAB PO SCH (12:24)
[2020-01-18] MEDS: ASPIRIN 81 MG ENTERIC COATED PO SCH (12:24)
[2020-01-18] MEDS: APIXABAN 5 MG TABLET PO SCH (12:24)
[2020-01-18] MEDS: CYANOCOBALAMIN 1,000 MCG TAB PO SCH (12:24)
--- NOTE | 2020-01-18 13:08 | NUR ---
PATIENT ASSISTED WITH LUNCH, IN BED RESTING WITH NO S/S OF DISTRESS. CALL LIGHT AT REACH.
--- NOTE | 2020-01-18 14:12 | Myoview Stress Test ---
DATE OF STUDY: 01/17/2020 10:03:00 Stress Test - Treadmill ONLY This is associated with dictation ID #[id number]. TITLE OF REPORT: Lexiscan nuclear stress test. INDICATION FOR STUDY: This is a 74-year-old lady with multiple comorbidities including blindness, who is unable to exercise, found to have a colonic mass and is in need for ischemic risk stratification prior to undertaking GI operation. The patient is unable to exercise due to her clinical state. DESCRIPTION OF PROCEDURE: After risks, benefits, pros, and cons of today's Lexiscan nuclear stress test explained to the patient, the patient agreed to proceed. This is a 2-day protocol. Initially, she came on January 17, 2020, received an 11 mCi dose of technetium-99m tetrofosmin intravenously. After 40 minutes, the patient was taken to the [facility] SPECT camera for resting myocardial perfusion imaging. The next day, the patient was then brought to the stress lab where 12-lead EKG monitoring and blood pressure monitoring were obtained. She received a dose of Lexiscan 0.4 mg intravenously followed by 30.4 mCi dose of technetium-99m tetrofosmin intravenously. Resting heart rate guerline from a baseline of 87 beats per minute to a maximum of 104 beats per minute. Blood pressure went from baseline of 140/95 down to 95/50, which is an appropriate hemodynamic response. With Lexiscan infusion, there were no chest pain symptoms or ST-T changes. Underlying EKG reveals the presence of sinus rhythm, incomplete right bundle-branch block and inferior Q-waves in 3 and aVF, and again with Lexiscan infusion, there were no ischemic EKG changes or symptoms. After 25 minutes, the patient was then taken to the SPECT camera for stress myocardial perfusion imaging. FINDINGS: 1. Resting myocardial perfusion imaging reveals a moderate area of decreased uptake in the inferior wall. 2. Stress myocardial perfusion imaging reveals the same moderate area of decreased uptake in the inferior wall, appears largely unchanged. 3. The following gated measurements were obtained. End-diastolic volume was 29 mL, end systolic volume 10 mL, calculated left ventricular ejection fraction is 67%, has notable small cavity and wall motion seems to be notable for inferior wall hypokinesis. CONCLUSIONS: 1. Abnormal myocardial perfusion imaging study revealing a moderate-sized area of decreased uptake in the inferior wall matched at rest and stress compatible with scar, but no ischemia noted. 2. Normal left ventricular function with calculated ejection fraction of 67% with notable inferior wall hypokinesis, which is compatible with old PA. 3. Overall, this stress test shows no areas of ischemia, but rather an area of moderate-sized fixed and decreased uptake in the inferior wall compatible with an old PA. MD JORDY Dc/JAD /[id number]
--- NOTE | 2020-01-18 16:15 | NUR ---
PATIENT IN BED RESTING WITH HEAD OF BED ELEVATED. CALL LIGHT AT REACH.
--- NOTE | 2020-01-18 19:00 | NUR ---
Resumed care of patient. Patient resting quietly in bed, respirations even and unlabored on room air, no s/s of distress at this time. All safety measures in place.
[2020-01-18] MEDS: TRAZODONE HCL 50 MG TAB PO SCH (21:00)
[2020-01-18] MEDS: LATANOPROST(OPTH) 2.5 ML BTL OP SCH (21:19)
[2020-01-19] VITALS: BP 103/68
[2020-01-19] MEDS: SODIUM CHLORIDE 0.9% 1000ML 1,000 ML IV SCH (03:45)
[2020-01-19 04:00] VITALS: BP 98/64
[2020-01-19] MEDS: METOPROLOL TARTRATE 50 MG TAB PO SCH ×2 (04:30→17:28)
[2020-01-19 07:10] VITALS: BP 117/68
--- NOTE | 2020-01-19 07:10 | NUR ---
PATIENT IN BED RESTING WITH EYES CLOSED, NO DISTRESS NOTED. ALL PERSONAL ITEMS CLOSE TO PATIENT. CALL LIGHT AT REACH.
[2020-01-19] MEDS: INSULIN REGULAR, HUMAN 100 UNIT/1 ML 3ML VIAL SQ SCH ×3 (07:30→16:30)
[2020-01-19 08:22] VITALS: BP 117/68
[2020-01-19] MEDS: CYANOCOBALAMIN 1,000 MCG TAB PO SCH (09:14)
[2020-01-19] MEDS: APIXABAN 5 MG TABLET PO SCH (09:14)
[2020-01-19] MEDS: ASPIRIN 81 MG ENTERIC COATED PO SCH (09:14)
[2020-01-19] MEDS: FERROUS SULFATE 325 MG TAB PO SCH ×2 (09:14→17:28)
[2020-01-19] MEDS: SOLIFENACIN SUCCINATE 5 MG TAB PO SCH (09:14)
[2020-01-19] MEDS: CLONIDINE HCL 0.1 MG TAB PO SCH (09:14)
--- NOTE | 2020-01-19 11:05 | NUR ---
PATIENT REPOSITIONED IN BED, RESTING WITH NO S/S OF DISCOMFORT. CALL LIGHT AT REACH.
[2020-01-19 11:45] VITALS: BP 96/68
--- NOTE | 2020-01-19 13:11 | Progress Note ---
DATE: 01/19/2020 CHIEF COMPLAINT/HISTORY OF PRESENT ILLNESS: This is a 74-year-old woman, whose primary treatment diagnosis is extensive bilateral lower extremity deep venous thrombosis and pulmonary embolism. The patient voices no complaints today. The patient yesterday underwent IVC filter placement by Dr. Madhu Francois. The patient underwent echocardiogram on January 17, 2020, that revealed diastolic dysfunction with preserved left ventricular ejection fraction of 55%-60%. The patient was started on apixaban 5 mg twice a day today by her financial intern, namely Dr. Maico Francois. Blood work performed yesterday January 18, 2020. revealed BUN and creatinine of 16 and 0.72 respectively. The patient's potassium is 3.7. The patient's hemoglobin on January 18, 2020 was 10.7 g/dL. REVIEW OF SYSTEMS: As per HPI. PHYSICAL EXAMINATION: GENERAL: She is awake. She is alert. She gets confused easily. She is very pleasant and cooperative on exam. She does not appear to be any obvious distress. VITAL SIGNS: Height 5 feet 0 inches, weight 150 pounds, BMI 29. Blood pressure is 96/68, pulse 68, respiratory rate 16, temperature 96.5, oxygen saturation 98% on room air. INTEGUMENT: Skin is warm and dry. Slight pallor. No jaundice or diaphoresis. HEENT: Anicteric sclerae. Moist mucous membranes. The patient is legally blind. NECK: Supple. CARDIOVASCULAR: Distant heart sounds. Regular rate and rhythm with an S3 gallop. LUNGS: No rales. No rhonchi or wheezes. ABDOMEN: Mild obesity, benign. EXTREMITIES: No edema or deformity. NEUROLOGIC: The patient has left hemiparesis from old stroke. DIAGNOSES: 1. Acute pulmonary embolism. 2. Bilateral lower extremity deep venous thrombosis. 3. Cerebrovascular disease (history of old cerebrovascular accident with residual left hemiparesis). 4. 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 5. Status post IVC filter placement. 6. Chronic diastolic congestive heart failure. PLAN: 1. Agree with apixaban in the form of Eliquis 5 mg twice a day for pulmonary embolism and for bilateral lower extremity deep venous thrombosis. 2. Continue congestive heart failure medical management with metoprolol tartrate. 3. Discharge planning as per Cardiology. I spent 30 minutes in the care of the patient. Darian E MD CORTNEY Malik/JAD /[id number] MTDPiter
--- NOTE | 2020-01-19 13:13 | NUR ---
PT IS BEING DISCHARGED, SHE IS CURRENTLY RESIDING AT [facility] IN [place]([address]) . SW CONTACTED [id number], SPOKE WITH ADMN NURSE [place] AND CONFIRMED THAT PT IS A RESIDENT THERE AND CAN RETURN. RTF COMPLETED AND GIVEN TO THE NURSE.
--- NOTE | 2020-01-19 13:16 | Discharge Summary ---
ADMIT DIAGNOSES: 1. Acute right-sided pulmonary embolism. 2. Acute bilateral lower extremity deep venous thrombosis. 3. Cerebrovascular disease (history of CVA with residual left hemiparesis). 4. Blindness secondary to diabetes mellitus. 5. Chronic diastolic congestive heart failure. 6. Colonic mass (suspicious for malignancy). DISCHARGE DIAGNOSES: 1. Status post inferior vena cava filter placement. 2. Acute right-sided pulmonary embolism. 3. Extensive bilateral lower extremity deep venous thrombosis. 4. Blindness secondary to type 2 diabetes mellitus. 5. Cerebrovascular disease (history of CVA with left-sided weakness). 6. Colonic mass (suspicious for malignancy). HOSPITAL COURSE: This is a 74-year-old woman, who has a history of blindness secondary to diabetes mellitus as well as an old cerebrovascular accident with residual left-sided weakness. The patient was admitted to [facility] with diagnosis of acute right-sided pulmonary embolism as well as acute extensive lower extremity deep venous thrombosis. Moreover, the patient has a suspicious colonic mass. During this hospitalization, the patient had an inferior vena cava filter placement placed by Dr. Madhu Francois. The patient was also seen by Maico Francois for cardiac clearance. The patient was cleared by Cardiology for tentative colonic surgery in the near future. On admission CT of the chest with intravenous contrast revealed findings consistent with right-sided pulmonary embolism. The patient was also found to have lower extremity deep venous thrombosis during the stay. The patient was started on apixaban in the form of Eliquis 5 mg twice a day, which she tolerated quite well. The decision was made to transfer patient back to her long-term namely [facility] in [place], [place]. CONDITION ON DISCHARGE: Stable. DISCHARGE MEDICATIONS: 1. Eliquis 5 mg b.i.d. 2. Acetaminophen 325 mg every 6 hours p.r.n. fever. 3. Aspirin 81 mg daily. 4. Vitamin B12 1000 mcg daily. 5. Ferrous sulfate 325 mg b.i.d. 6. Latanoprost one drop to each eye at night. 7. Metoprolol tartrate 50 mg b.i.d. 8. Pantoprazole 40 mg daily. 9. VESIcare 5 mg daily. 10. Trazodone 50 mg at bedtime. 11. Vitamin D3 2000 units daily. The patient was instructed to stop clonidine, NovoLog insulin, linagliptin and nitroglycerin patch, she was told to stop these four medicines under further notice. FOLLOWUP INSTRUCTIONS: The patient will be transferred back to [facility] here in [place], [place] today. The long-term was given instructions for the patient to follow up Dr. Augie Gong in 2 weeks, so arrangements could be made for tentative colonic mass resection soon thereafter. MD CORTNEY Song/JAD /[id number] cc: MD Augie Armas MD MTDD
[2020-01-19 15:31] VITALS: BP 105/74
--- NOTE | 2020-01-19 15:49 | NUR ---
PATIENT ASSISTED WITH DIAPER CHANGE, HAD A LARGE BM. REPOSITIONED IN BED, CALL LIGHT AT REACH.
[2020-01-19] MEDS ORDERED: APIXABAN 5 MG TABLET PO SCH (17:00)
--- NOTE | 2020-01-19 17:20 | NUR ---
ROBERTSON CATHETER DISCONTINUED AT 15:00, PATIENT VOIDED YELLOW URINE TO DIAPER AT THIS TIME. DIAPER CHANGED AND PATIENT REPOSITIONED IN BED. CALL LIGHT AT REACH.
--- NOTE | 2020-01-19 18:05 | NUR ---
PATIENT TRANSFERRED TO SNF FACILITY. REPORT CALLED AND GIVEN TO RECEIVING NURSE. TRANSFER MAR FAXED TO THE FACILITY. IV TO RIGHT AC REMOVED WITH TIP INTACT. PATIENT'S DAUGHTER NOTIFIED OF THE TRANSFER. ALL PERSONAL ITEMS TAKEN WITH PATIENT. LEFT UNIT ON STRETCHER PER AMBULANCE IN STABLE CONDITION.
== END 2020-01-19 18:02 | DRG 299 ==
LOC: ER 18:42 → ERHOLD 21:28 → MED/SURG3 22:25
PROC: 06H03DZ Insertion of Intraluminal Device into Inferior Vena Cava, Percutaneous Approach (ICD-10-PCS; principal; 2020-01-16)
PROC: B51D1ZZ Fluoroscopy of Bilateral Lower Extremity Veins using Low Osmolar Contrast (ICD-10-PCS; 2020-01-16)
DX: I82.413 Acute embolism and thrombosis of femoral vein, bilateral (principal); I26.99 Other pulmonary embolism without acute cor pulmonale; I69.954 Hemiplegia and hemiparesis following unspecified cerebrovascular disease affecting left non-dominant side; I50.32 Chronic diastolic (congestive) heart failure; C18.9 Malignant neoplasm of colon, unspecified; I82.443 Acute embolism and thrombosis of tibial vein, bilateral; I82.431 Acute embolism and thrombosis of right popliteal vein; R06.03 Acute respiratory distress; D64.9 Anemia, unspecified; R62.7 Adult failure to thrive; I11.0 Hypertensive heart disease with heart failure; F32.9 Major depressive disorder, single episode, unspecified; E11.39 Type 2 diabetes mellitus with other diabetic ophthalmic complication; H54.8 Legal blindness, as defined in USA; Z91.81 History of falling; Z83.3 Family history of diabetes mellitus; Z82.49 Family history of ischemic heart disease and other diseases of the circulatory system; Z11.59 Encounter for screening for other viral diseases; Z68.39 Body mass index [BMI] 39.0-39.9, adult
CPT/HCPCS: 36415; 37191; 71260; 75825; 78452; 80048; 80053; 82550; 82553; 82948; 84443; 84484; 85025; 85610; 85730; 93005; 93017; 93306; 93880; 93970; 99152; 99284; A9502; C1880; J1650; J1817; J2001; J2250; J3010; J7030; Q9967

== ENCOUNTER 2020-02-18 07:21 | Inpatient (IN) | payer MEDICARE, OTHER ==
[~2020-02-18] VITALS: Ht 152.4 cm; Wt 69.1 kg
[2020-02-18] VITALS (16 sets, daily range): BP systolic 80–117; BP diastolic 49–90
[~2020-02-18 07:21] MED LIST changes: +ELIQUIS5 MG PO; +ERYTHROMYCIN250 M1 PO; +IRON PO; +LASIX20 MG PO; +NITROGLYCERIN0.4 MG TOP; +NOVOLOG100 UNIT/1 SQ; +POTASSIUM CHLO20 ME1 PO
[2020-02-18] MEDS ORDERED: ASPIRIN 81 MG CHEW TAB PO ONE (07:30)
--- NOTE | 2020-02-18 07:30 | NUR ---
Gear Repairer responded to rapid at [facility]. Gear Repairer met pt's daughter and provided empathic listening and calming pastoral presence. Pt's daughter expressing emotions thru words and tears. Escorted pt's daughter to ED Waiting Room. Will follow as able. [facility] O: [phone]
[2020-02-18 08:18] LABS: BASOPHILS % 0.3 % (0.0-1.0); EOSINOPHILS % 0.3 % (0.0-6.0); HEMATOCRIT 27.3 % (34.2-44.1); HEMOGLOBIN 8.5 g/dL (12.0-16.0); LYMPHOCYTES # (AUTO) 1.2 (1.0-3.2); LYMPHOCYTES % 10.7 % (18.0-39.1); MEAN CORPUSCULAR HGB CONC 31.1 g/dL (31-35); MEAN CORPUSCULAR VOLUME 102.6 fL (81-99); MONOCYTES # (AUTO) 0.4 (0.2-0.8); MONOCYTES % 3.7 % (4.4-11.3); NEUTROPHILS # (AUTO) 9.1 (2.1-6.9); NEUTROPHILS % 83.3 % (38.7-80.0); PLATELET COUNT 249 x10e3/uL (140-360); RED BLOOD COUNT 2.66 x10e6/uL (3.6-5.1); RED CELL DISTRIBUTION WIDTH 20.3 % (11.7-14.4)
[2020-02-18 08:19] LABS: INR 1.15; PROTHROMBIN TIME 15.3 seconds (11.9-14.5)
[2020-02-18] MEDS ORDERED: CEFEPIME 1GM/NS 0.9% 50 ML 50 ML IV STA (08:23)
[2020-02-18] MEDS ORDERED: SODIUM CHLORIDE 0.9% 1000ML 1,000 ML IV STA ×2 (08:29)
[2020-02-18] MEDS ORDERED: VANCOMYCIN 1GM/NS 250 ML 250 ML IV STA (08:29)
[2020-02-18 08:32] LABS: ALANINE AMINOTRANSFERASE 20 IU/L (0-55); ALBUMIN 1.4 g/dL (3.5-5.0); ALBUMIN/GLOBULIN RATIO 0.6 (0.8-2.0); ALKALINE PHOSPHATASE 103 IU/L (40-150); ANION GAP 15.4 mmol/L (8-16); BLOOD UREA NITROGEN 18 mg/dL (7-26); BUN/CREATININE RATIO 20 (6-25); CALCIUM 7.1 mg/dL (8.4-10.2); CARBON DIOXIDE 19 mmol/L (22-29); CHLORIDE 103 mmol/L (98-107); CREATINE KINASE 57 IU/L (29-168); EST GLOMERULAR FILTRATION RATE > 60 ML/MIN (60-); GLUCOSE 187 mg/dL (74-118); POTASSIUM 4.4 mmol/L (3.5-5.1); SODIUM 133 mmol/L (136-145)
[2020-02-18] MEDS ORDERED: SODIUM CHLORIDE 0.9% 1000ML 2,000 ML ONE (08:42)
--- NOTE | 2020-02-18 08:43 | Emergency Department Note ---
History of Present Illnes History of Present Illness Chief Complaint: Sepsis History of Present Illness This is a 74 year old female arrived to the ED for colonic resection, rapid response called in the lobby for patient being altered and having partial syncopal event. Chief Complaint Comment PATIENT IN FROM [facility]; PATIENT INITIALLY FOR OUTPATIENT SURGERY. AFTER REGISTRATION A RAPID RESPONSE WAS CALLED. PATIENT FOUND TO BE TACHYCARDIC AND WEAK WITH O2 SATS 85% ON ROOM AIR. PATIENT PLACED ON NONREBREATHER. 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, Family Member Arrival Mode: Car Onset (how long ago): hour(s) Radiation: Reports non-radiation Severity: mild Duration (how long): hour(s) Timing of current episode: constant, unable to specify Progression: worsening Chronicity: new Context: Reports recent illness Past Medical/Family History Physician Review I have reviewed the patient's past medical and family history. Any updates have been documented here. Past Medical History Recent Fever: No Clinical Suspicion of Infectio: Yes New/Unexplained Change in Ment: No Past Medical History: Hypertension, Diabetes, Anemia, Depression, Osteoarthritis Other Medical History: Glaucoma, blindness Past Surgical History: Other Surgery: EGD, colonoscopy Social History Physically hurt or threatened: No Review of Systems ROS Narrative Unable to obtain ROS: critical patient Review of Systems Constitutional: Reports no symptoms EENTM: Reports no symptoms Cardiovascular: Reports no symptoms Respiratory: Reports as per HPI Gastrointestinal: Reports no symptoms Genitourinary: Reports no symptoms Musculoskeletal: Reports no symptoms Integumentary: Reports no symptoms Neurological: Reports no symptoms Psychological: Reports no symptoms Endocrine: Reports no symptoms Hematological/Lymphatic: Reports no symptoms Physical Exam Related Data Allergies: Coded Allergies: No Known Allergies (Unverified , 02/18/20) Triage Vital Signs Vital Signs Date Time Temp Pulse Resp B/P (MAP) Pulse Ox O2 Delivery O2 Flow Rate FiO2 02/18/20 07:21 98.0 129 25 122/79 Non-Rebreather 02/18/20 07:36 15.0 02/18/20 07:37 96 Vital signs reviewed: Yes Physical Exam CONSTITUTIONAL Constitutional: Present ill appearing HENT HENT: Present normocephalic, Present atraumatic, Present oropharynx clear/moist, Present nose normal HENT L/R: Present left ext ear normal, Present right ext ear normal EYES Eyes: Reports PERRL, Reports conjunctivae normal NECK Neck: Present ROM normal PULMONARY Pulmonary: Present effort normal, Present respiratory distress CARDIOVASCULAR Cardiovascular: Present regular rhythm, Present heart sounds normal, Present tachycardia GASTROINTESTINAL Abdominal: Present soft, Present nontender, Present bowel sounds normal GENITOURINARY Genitourinary: Present exam deferred SKIN Skin: Present warm, Present dry MUSCULOSKELETAL NEUROLOGICAL Neurological: Present alert, Present no gross motor or sensory deficits PSYCHOLOGICAL Psychological: Present mood/affect normal, Present judgement normal Results Laboratory Laboratory Laboratory Tests Test 02/18/20 07:55 Lab results reviewed: Yes Laboratory comments Laboratory Tests Test 02/18/20 09:18 02/18/20 07:55 02/18/20 07:20 White Blood Count 10.96 x10e3/uL (4.8-10.8) Red Blood Count 2.66 x10e6/uL (3.6-5.1) Hemoglobin 8.5 g/dL (12.0-16.0) Hematocrit 27.3 % (34.2-44.1) Mean Corpuscular Volume 102.6 fL (81-99) Mean Corpuscular Hemoglobin 32.0 pg (28-32) Mean Corpuscular Hemoglobin Concent 31.1 g/dL (31-35) Red Cell Distribution Width 20.3 % (11.7-14.4) Platelet Count 249 x10e3/uL (140-360) Neutrophils (%) (Auto) 83.3 % (38.7-80.0) Lymphocytes (%) (Auto) 10.7 % (18.0-39.1) Monocytes (%) (Auto) 3.7 % (4.4-11.3) Eosinophils (%) (Auto) 0.3 % (0.0-6.0) Basophils (%) (Auto) 0.3 % (0.0-1.0) Neutrophils # (Auto) 9.1 (2.1-6.9) Lymphocytes # (Auto) 1.2 (1.0-3.2) Monocytes # (Auto) 0.4 (0.2-0.8) Eosinophils # (Auto) 0.0 (0.0-0.4) Basophils # (Auto) 0.0 (0.0-0.1) Absolute Immature Granulocyte (auto 0.19 x10e3/uL (0-0.1) Prothrombin Time 15.3 seconds (11.9-14.5) Prothromb Time International Ratio 1.15 Sodium Level 133 mmol/L (136-145) Potassium Level 4.4 mmol/L (3.5-5.1) Chloride Level 103 mmol/L (98-107) Carbon Dioxide Level 19 mmol/L (22-29) Anion Gap 15.4 mmol/L (8-16) Blood Urea Nitrogen 18 mg/dL (7-26) Creatinine 0.90 mg/dL (0.57-1.11) Estimat Glomerular Filtration Rate > 60 ML/MIN (60-) BUN/Creatinine Ratio 20 (6-25) Glucose Level 187 mg/dL (74-118) Lactic Acid Level 5.8 mmol/L (0.5-2.0) Calcium Level 7.1 mg/dL (8.4-10.2) Total Bilirubin 0.4 mg/dL (0.2-1.2) Aspartate Amino Transf (AST/SGOT) 19 IU/L (5-34) Alanine Aminotransferase (ALT/SGPT) 20 IU/L (0-55) Alkaline Phosphatase 103 IU/L (40-150) Creatine Kinase 57 IU/L (29-168) Creatine Kinase MB 1.40 ng/mL (0-5.0) Troponin I 0.014 ng/mL (0-0.300) Total Protein 3.8 g/dL (6.5-8.1) Albumin 1.4 g/dL (3.5-5.0) Globulin 2.4 g/dL (2.3-3.5) Albumin/Globulin Ratio 0.6 (0.8-2.0) Arterial Blood pH 7.31 (7.35-7.45) Arterial Blood Partial Pressure CO2 29 mmHg (35-45) Arterial Blood Partial Pressure O2 75 mmHg (80-105) Arterial Blood HCO3 15 mmol/L (22-26) Arterial Blood Total CO2 16 Arterial Blood Oxygen Saturation 94.0 % (95-98) Arterial Blood Base Excess -12.0 mmol/L (-2 - 3) FiO2 21 % Imaging Imaging results reviewed: Yes Procedures 12 Lead ECG Interpretation ECG Interpretation : ECG: ECG 1 Account Developer: Interpreted by ED physician Prior ECG tracings: reviewed Rhythm: sinus tachycardia Rate: tachycardia QRS axis: left T wave inversion: I, aVL T waves flattening: V5, V6 Clinical Impression: normal ECG Critical Care Time Total Critical Care Time (min): 65 Critical care time exclusive o: separately billable procedures Critcal care necessary due to: shock Assessment & Plan Medical Decision Making MDM Concerns of septic shock were noted at 0830 secondary to marked lactic acidosis of 5.8 While there is no source of infection at time of admission, patient was empirically treated as impending septic shock. Fluid resuscitation done with NS of 2 L. Patient is ideal body weight is 64 kg. Bedside volume reassessment done with improvement of blood pressure/map noted. Spoke at length patient's daughter and at this time they are considering comfort care and considering DNR/DNI status. Family wishes to possibly hold off on central line or other aggressive interventions at this time. Blood cultures and lactic acid obtained. Broad-spectrum antibiotics given Repeat lactic acid noted to be 2.2 Assessment & Plan Final Impression: (1) Septic shock (2) Acute respiratory distress (3) Colonic mass (4) DVT (deep venous thrombosis) (5) Pulmonary embolus Depart Disposition: ADMITTED Last Vital Signs Date Time Temp Pulse Resp B/P (MAP) Pulse Ox O2 Delivery O2 Flow Rate FiO2 02/18/20 07:37 125 26 130/97 96 Non-Rebreather 15.0 02/18/20 07:21 98.0 Home Meds Reported Medications Ondansetron Hcl* (ZOFRAN*) 4 Mg Tablet, 4 MG PO Q4HR PRN for NAUSEA AND VOMITING 02/18/20 Cyanocobalamin (VITAMIN B-12) 1,000 Mcg Tab, 500 MCG PO DAILY, #30 TAB 02/18/20 Solifenacin Succinate (VESICARE) 5 Mg Tablet, 5 MG PO DAILY, #30 TAB 02/18/20 Trazodone Hcl (TRAZODONE HCL) 50 Mg Tablet, 25 MG PO HS, #30 TAB 02/18/20 Acetaminophen (ACETAMINOPHEN) 325 Mg Tablet, 650 MG PO Q4HR PRN for MILD PAIN (1-3) for 5 Days, TAB 02/18/20 Erythromycin Base (ERYTHROMYCIN) 250 Mg Tablet, 1 GM PO TID ON FRIDAY 02/16 FOR SURGERY ON 02/1702/16/20 [Iron] No Conflict Check, 65 MG PO BID 02/16/20 Linagliptin (TRADJENTA) 5 Mg Tablet, 5 MG PO DAILY 02/16/20 Potassium Chloride (POTASSIUM CHLORIDE) 20 Meq Tab.er.prt, 20 MEQ PO DAILY 02/16/20 Insulin Aspart (NOVOLOG) 100 Unit/1 Ml Cartridge, 0 SC BIDWM, SYR 02/16/20 Insulin Aspart (NOVOLOG) 100 Unit/1 Ml Cartridge, 5 UNITS SQ BID, UNITS 02/16/20 Nitroglycerin (NITROGLYCERIN) 0.4 Mg Tab.subl, 0.2 MG TOP DAILY, TAB 02/16/20 Furosemide (LASIX) 20 Mg Tablet, 20 MG PO DAILY, #30 TAB 02/16/20 Clonidine Hcl (CLONIDINE HCL) 0.1 Mg Tablet, 1 TAB PO Q12H PRN for HIGH BLOOD PRESSURE, #60 TAB BP Systolic >170 02/16/20 Apixaban (Eliquis) 5 Mg Tablet, 5 MG PO BID 01/16/20 Pantoprazole Sodium (PANTOPRAZOLE SODIUM) 20 Mg Tablet.dr, 40 MG PO DAILY 01/11/20 Metoprolol Tartrate (METOPROLOL TARTRATE) 50 Mg Tablet, 50 MG PO Q12H, TAB 01/11/20 Discontinued Reported Medications Cyanocobalamin (VITAMIN B-12) 1,000 Mcg Tab, 500 MCG PO DAILY, #30 TAB 01/16/20 Solifenacin Succinate (VESICARE) 5 Mg Tablet, 5 MG PO DAILY, #30 TAB 01/16/20 [vitamin d] No Conflict Check, 2000 UNITS PO DAILY 01/11/20 Trazodone Hcl (TRAZODONE HCL) 50 Mg Tablet, 25 MG PO HS, #30 TAB 01/11/20 Latanoprost (LATANOPROST) 2.5 Ml Drops, 2.5 ML OP HS, BOTTLE 01/11/20 Ferrous Sulfate (FERROUS SULFATE) 325 Mg Tablet, 325 MG PO BID 01/11/20 Aspirin (ASPIRIN EC) 81 Mg Tablet.dr, 81 MG PO DAILY, #30 TAB 01/11/20 Acetaminophen (ACETAMINOPHEN) 325 Mg Tablet, 325 MG PO Q6H PRN for ELEVATED TEMPERATURE for 5 Days, TAB 01/11/20 Medications in the ED Aspirin 81 mg PRN ONCE PO ; Start 02/18/20 at 07:30; Stop 02/18/20 at 07:34; Status DC BARBI HUBBARD, Feb 18, 2020 08:43
[2020-02-18] MEDS ORDERED: SODIUM CHLORIDE 0.9% 1000ML 2,040 ML IV SCH (08:45)
[2020-02-18] MEDS ORDERED: CEFEPIME 1GM/NS 0.9% 50 ML 50 ML IV SCH ×2 (09:00→09:15)
[2020-02-18 09:40] LABS: ABG HCO3 15 mmol/L (22-26); ABG PCO2 29 mmHg (35-45); ABG PH 7.31 (7.35-7.45); ABG PO2 75 mmHg (80-105); ABG TCO2 16
[2020-02-18] MEDS ORDERED: DEXTROSE 50% SYRINGE 50 ML IV PRN (10:00)
--- NOTE | 2020-02-18 10:00 | NUR ---
Dr Ruth at bedside, updated on HR and BP, no new orders received at this time.
--- NOTE | 2020-02-18 10:27 | Diagnostic Imaging Report ---
EXAMINATION: CHEST SINGLE (PORTABLE) INDICATION: Shortness of breath COMPARISON: Chest CT 01/16/2020 FINDINGS: LINES/TUBES:EKG leads overlie the chest. LUNGS:The lungs are moderately inflated. Mild bibasilar opacities. PLEURA:Trace bilateral pleural effusions. No pneumothorax. MEDIASTINUM:The cardiomediastinal silhouette appears normal in size and shape. Atherosclerotic calcifications of the thoracic aorta. BONES/SOFT TISSUES:No acute osseous injury. ABDOMEN:No free air under the diaphragm. IMPRESSION: Trace bilateral pleural effusions. Mild bibasilar opacities, more likely atelectasis than superimposed aspiration or pneumonia. Signed by: Reshma Dinh MD on 02/18/2020 10:23 AM
[2020-02-18] MEDS: SODIUM CHLORIDE 0.9% 1000ML 1,000 ML IV SCH ×2 (10:50→23:09)
--- NOTE | 2020-02-18 10:58 | Consultation ---
DATE OF CONSULTATION: Pulmonary Consultation HISTORY OF PRESENT ILLNESS: The patient is referred from the emergency room. Apparently, came to the hospital for elective colon resection for undiagnosed mass, but was pale and poorly responsive in the intake and was sent to the emergency room. She was seen by Dr. Swain, who admitted her. Because of tachypneic and weakness with low O2 saturation on room air, she was admitted. She is now awake and alert, in no acute distress. She is generally unhappy with her living arrangement in the half-way and is depressed. 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 She has had history of recent DVT and PE, diagnosed since 01/16/2020. Anticoagulated. This has been held prior to surgery. She has also had an IVC filter placed. She was born in [place], [place]. Nonsmoker. No alcohol. She has a history of glaucoma, diabetes, anemia, depression, osteoarthritis, and hypertension. She has had in the past, EGD, and colonoscopy. She has a history of anemia, chronically anemic, and she is edematous. PHYSICAL EXAMINATION: GENERAL: She is a well-developed white female, pale, seen in the ICU. VITAL SIGNS: Temperature 98, pulse 121, respirations 20, and blood pressure 96/67. HEAD: Normocephalic, atraumatic. Somewhat swollen facies. LUNGS: Clear anteriorly. HEART: Regular rhythm. ABDOMEN: Nontender. EXTREMITIES: Edematous. IMPRESSION AND PLAN: There is left hemiparesis, edematous state, anemia, lactic acidosis, suspected sepsis. No imaging has yet been done. CT abdomen, pelvis, chest has been ordered by Dr. Swain. We will add anaerobic cover. Monitor blood sugars. She is diabetic. Continue metoprolol. Monitor serum lactic acid. She is malnourished. Serum albumin is 1.4. Thank you for this kind referral. Continue ICU care. PICC line for poor IV access. Du Ruth MD DS/MODL /[phone]
--- NOTE | 2020-02-18 11:00 | NUR ---
Dr Francois at bedside, updated on vital signs and plan of care. No new orders noted at this time.
[2020-02-18] MEDS: INSULIN LISPRO 100 UNIT/1 ML 3ML VIAL SQ SCH ×3 (11:30→22:26)
[2020-02-18] MEDS ORDERED: ZOFRAN4 MG PO (11:49)
[2020-02-18] MEDS ORDERED: VESICARE5 MG PO (11:49)
[2020-02-18] MEDS ORDERED: TRAZODONE HCL50 MG PO (11:49)
[2020-02-18] MEDS ORDERED: ACETAMINOPHEN325 M1 PO (11:49)
[2020-02-18] MEDS ORDERED: VITAMIN B-121000 MCG PO (11:49)
[2020-02-18 13:47] LABS: COLOR,URINE YELLOW (YELLOW)
[2020-02-18 13:48] LABS: CLARITY,URINE SL CLOUDY (CLEAR); KETONES,URINE NEGATIVE (NEGATIVE); NITRITE,URINE NEGATIVE (NEGATIVE); PROTEIN,URINE DIPSTICK NEGATIVE (NEGATIVE)
[2020-02-18 13:49] LABS: BILIRUBIN,URINE NEGATIVE (NEGATIVE); LEUKOCYTE ESTERASE ,URINE SMALL (NEGATIVE); URINE UROBILINOGEN 0.2 mg/dL (0.2 - 1)
[2020-02-18 14:12] LABS: BACTERIA,URINE MANY /HPF; EPITHELIAL CELLS,URINE MODERATE /LPF
--- NOTE | 2020-02-18 14:44 | NUR ---
PICC nurse at bedside, unable to insert PICC due to history of CVA and presence of edema in upper arms. Dr Ruth called to update, awaiting return call. Patient resting quietly in bed, no s/s distress noted, no c/o pain.
[2020-02-18] MEDS: METRONIDAZOLE 500MG/NS 100ML 100 ML IV SCH ×2 (14:48→22:22)
--- NOTE | 2020-02-18 14:59 | Diagnostic Imaging Report ---
CT BRAIN WO HISTORY: Altered mental status COMPARISON: None. Technique: Noncontrast axial scans were obtained from skull base to the vertex. Coronal and sagittal reconstructions obtained from the axial data. One or more of the following dose reduction techniques were used: Automated exposure control, adjustment of the mA and/or kV according to patient size, and/or utilization of iterative reconstruction technique. Beam hardening and motion artifacts obscure some details. DISCUSSION: Scalp/Skull: Unremarkable. Brain sulci: Mildly prominent. Ventricles: Compensatory dilatation. Extra-axial spaces: No masses or fluid collections. Diffuse vascular calcifications are seen throughout the anterior and posterior circulation. Parenchyma: Areas of encephalomalacia along the lateral right temporal lobe, right inferior parietal lobule, and throughout the left cerebellum are present. Severe bilateral deep white matter hypodensity is likely chronic microvascular ischemic change. Otherwise, no masses, hemorrhage, or large vascular territory acute infarct. Dural sinuses: No abnormal densities. Sellar/Suprasellar region: Intact. Skull base: Intact. Incidental findings: None. IMPRESSION: 1. No acute intracranial abnormalities. 2. 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 3. Severe supratentorial chronic microvascular ischemic change. Generalized cerebral volume loss. 4. Extensive diffuse vascular calcifications throughout the anterior and posterior circulation. Signed by: Dr. Arie Richard M.D. on 02/18/2020 2:56 PM
--- NOTE | 2020-02-18 15:12 | NUR ---
PT IS [facility]
--- NOTE | 2020-02-18 15:20 | Diagnostic Imaging Report ---
EXAM: CT Chest WITH contrast- Pulmonary Embolism Protocol INDICATION: Altered mental status COMPARISON: Chest radiograph earlier the same day TECHNIQUE: Chest was scanned utilizing a multidetector helical scanner from the lung apex through the level of the diaphragm after administration of IV contrast. Thin section reconstructions were obtained with special concentration on the pulmonary arteries. Coronal and sagittal reformations were obtained. Pulmonary embolism protocol was performed. IV CONTRAST: 100 cc of Isovue 370 RADIATION DOSE: Total DLP: 460 mGy*cm Dose modulation, iterative reconstruction, and/or weight based adjustment of the mA/kV was utilized to reduce the radiation dose to as low as reasonably achievable. COMPLICATIONS: None FINDINGS: LINES/ TUBES: None. PULMONARY ARTERIES: No filling defect is identified within the pulmonary arteries to the segmental level. The subsegmental pulmonary arteries are not well opacified. Main pulmonary artery measures 2.6 cm in diameter. LUNGS AND AIRWAYS: The central airways are patent. No focal consolidation. No airspace edema. Dependent subsegmental atelectasis of the right and left lower lobes. PLEURA: Moderate bilateral pleural effusions. No pneumothorax. HEART AND MEDIASTINUM: The thyroid gland is normal. No mediastinal, hilar or axillary lymphadenopathy. The heart is normal in size.. There is no pericardial effusion. UPPER ABDOMEN: Please see the separate dictation for the concurrently performed abdomen and pelvis CT for a detailed discussion of intra-abdominal findings. BONES: No suspicious lytic or blastic lesions. No acute osseous injury. SOFT TISSUES: Diffuse of subcutaneous soft tissue edema. IMPRESSION: No pulmonary embolism. Moderate bilateral pleural effusions and bibasilar dependent subsegmental atelectasis. Signed by: Reshma Dinh MD on 02/18/2020 3:17 PM
--- NOTE | 2020-02-18 15:39 | Diagnostic Imaging Report ---
EXAM: CT Abdomen and Pelvis WITH intravenous contrast INDICATION: Altered mental status COMPARISON: CT abdomen and pelvis of 01/06/2020 TECHNIQUE: Abdomen and pelvis were scanned utilizing a multidetector helical scanner from the lung base to the pubic symphysis after administration of IV contrast. Coronal and sagittal reformations were obtained. Routine protocol was performed. Scan was performed during portal venous phase. IV CONTRAST: 100mL of Isovue 370 ORAL CONTRAST: Water RADIATION DOSE: Total DLP: 569 mGy*cm Dose modulation, iterative reconstruction, and/or weight based adjustment of the mA/kV was utilized to reduce the radiation dose to as low as reasonably achievable. FINDINGS: LOWER THORAX: Please refer to report from concurrently performed chest CT for intrathoracic findings HEPATOBILIARY: Severe diffuse hepatic steatosis. Mildly nodular liver surface contour compatible with hepatic cirrhosis. Redemonstration of cholelithiasis. SPLEEN: No splenomegaly. PANCREAS: No focal masses or ductal dilatation. ADRENALS: No adrenal nodules. KIDNEYS/URETERS: No hydronephrosis or renal calculi. Unchanged renal cysts. PELVIC ORGANS/BLADDER: Capellan catheter in place. PERITONEUM / RETROPERITONEUM: No free air or fluid. LYMPH NODES: No lymphadenopathy. VESSELS: Scattered athetotic calcifications of the nonaneurysmal abdominal aorta and major branches. IVC filter in place. GI TRACT: Again seen is masslike wall thickening of the descending colon associated with heterogeneous enhancement. BONES AND SOFT TISSUES: No acute osseous injury. Diffuse soft tissue edema. IMPRESSION: Redemonstration of ascending colon masslike enhancing wall thickening concerning for malignancy. Hepatic steatosis, hepatic cirrhosis, and small volume ascites. Cholelithiasis. Signed by: Reshma Dinh MD on 02/18/2020 3:36 PM
[2020-02-18] MEDS ORDERED: IOPAMIDOL 370 MG/ML 200 ML INFUS..BTL INJ ONE (15:43)
[2020-02-18] MEDS ORDERED: SODIUM CHLORIDE 0.9% 50ML 50 ML ONE (15:43)
--- NOTE | 2020-02-18 16:19 | NUR ---
Dr Ruth returned call, updated MD regarding PICC line, new orders received and carried out. Updated MD with CT Scan results, no new orders received. Updated MD with Lactic Acid, per MD, no need to redraw another Lactic Acid.
[2020-02-18 16:37] LABS: CREATINE KINASE MB 2.7 ng/mL (0-5.0)
--- NOTE | 2020-02-18 17:36 | Consultation ---
DATE OF CONSULTATION: 02/18/2020 Cardiology Consultation REASON FOR CONSULTATION: Evaluate cardiovascular status/hypotension. HISTORY OF PRESENT ILLNESS: Ms. Pathak is a 74-year-old lady known to us from her previous hospitalization. 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 She had an acute extensive DVT and was noted to also have a colonic mass in need for surgical resection. In fact, she was scheduled today for surgical resection of a colon cancer. However, upon evaluation by admission crew, she was noted to be lethargic and not looking very well. From there, she was noted to be hypotensive and she was moved to the ICU for further care and management. She had an IVC filter placed for the DVT and anticipation of anticoagulation interruption back on January 17, 2020. In January, the patient also was had an ischemic risk stratification with a nuclear stress test last month, which showed a moderate-sized fixed inferior wall defect but no ischemia. In light of everything, the patient was brought to the ICU for further care and management. Her blood pressure is 80s/50s and appears to be comfortable lying flat. In fact, she is saturating 100% on room air, and breathing about 12 to 14 times a minute. Looking at her admission labs, she was noted to be anemic with a hemoglobin 8.5. A chemistry profile showing elevated BUN and creatinine ratio at 18 and 0.9 in the setting of an albumin level of 1.4. She is edematous all over and she appears anasarca. Her INR is noted to be 1.15, and she has been off anticoagulation therapy. Her ABG shows a pH of 7.31, PCO2 of 29, PO2 of 75%, saturating 94% on room air. Current hemodynamics shows heart rates in the 120s and again hypotensive but saturating fine on room air. PAST MEDICAL HISTORY: 1. Hypertension, essential. 2. Type 2 diabetes with complications. 3. History of DVT, status post IVC filter. 4. Colon cancer in need for resection. 5. History of stroke with residual left-sided hemiparesis and poor functional state. 6. She is a group home patient. FAMILY HISTORY: Unable to be obtained as the patient is not a very reliable historian. SOCIAL HISTORY: She lives in a group home, is a nonsmoker, nonalcohol drinker. ALLERGIES: NO KNOWN DRUG ALLERGIES. HOME MEDICATIONS: Include: 1. Eliquis 5 mg b.i.d., currently on hold. 2. Clonidine p.r.n. 3. Vitamin B12 tablet daily. 4. Lasix 20 mg daily. 5. NovoLog subcu sliding scale. 6. Tradjenta 5 mg daily. 7. Metoprolol 50 mg b.i.d. 8. Nitroglycerin 0.4 mg sublingual q.5 minutes p.r.n. 9. Zofran 4 mg q.4 hours p.r.n. 10. Protonix 20 mg daily. 11. Potassium chloride 20 mEq. 12. VESIcare 5 mg daily. 13. Trazodone 50 mg at bedtime. 14. Iron supplement 65 mg b.i.d. REVIEW OF SYSTEMS: GENERAL: Positive for fatigue and malaise. Denies any subjective fevers or chills. HEENT: No headaches. Has chronic decreased vision. No sore throat, stuffy nose. RESPIRATORY: Denies any pleuritic chest pain. Denies any subjective shortness of breath. CARDIOVASCULAR: Denies any chest pain or discomfort. Denies any orthopnea or PND. Denies any palpitations. GI: Positive for chronic abdominal pain and colon cancer as noted above. : Denies any dysuria, pyuria, or change in urine frequency. MUSCULOSKELETAL: Positive for severe swelling in her arms and legs. This has been ongoing. ENDOCRINE: Denies any heat or cold intolerance. NEUROLOGIC: Positive for stroke and residual left-sided body weakness. Remainder of review of systems negative otherwise mentioned. PHYSICAL EXAMINATION: VITAL SIGNS: Height of 60 inches, weight of 152 pounds. BMI is 29.7, temperature of 94.2, pulse of 123, respiratory rate of 10, O2 saturation 100% on room air. Blood pressure 96/65. GENERAL: This is a chronically ill-appearing lady who is currently lying in bed, in no respiratory distress. HEENT: Normocephalic and atraumatic. Pupils are equal, round, and reactive to light. Extraocular movements are intact. Oropharynx is clear. NECK: No elevation in jugular venous pulsation. No carotid bruits. CARDIOVASCULAR: Tachycardic. Normal S1, S2. Soft 2/6 systolic ejection murmur at the left lower sternal border. LUNGS: Show decreased bibasilar air entry and breath sounds. ABDOMEN: Soft, nontender, nondistended. Normoactive bowel sounds. No hepatosplenomegaly. BACK: No costovertebral angle tenderness. EXTREMITIES: Warm with 3+ edema in the right arm, 1 to 2+ edema in the left arm. Extensive bruising 2 to 3+ pitting edema to the mid shins bilaterally. Very doughy appearing feet and 1 to 2+ bilateral femoral pulses. NEUROLOGIC: She does have some slurred speech that is baseline and has left-sided body weakness and is overall fairly debilitated. PSYCH: Abnormal insight. Similarly normal mood. LABORATORY DATA: White count 11, hemoglobin 8.5, hematocrit 27.3, and platelets of 249. Sodium 133, potassium 4.4, chloride 103, bicarb 19, BUN 18, creatinine 0.9, glucose 187, calcium 7.1, AST 19, ALT 20, alkaline phosphatase 103, total protein of 3.8, albumin of 1.4. Lactic acid of 5.8. INR is 1.15. ABG shows pH 7.31, pCO2 29, PO2 of 75. Chest x-ray reveals trace bilateral pleural effusions. EKG reveal sinus tachycardia. DIAGNOSES: 1. Hypotension, questionable sepsis. 2. History of recent deep vein thrombosis, pulmonary embolism. 3. Severe protein and calorie malnutrition. 4. Type 2 diabetes, a complication. 5. History of stroke with residual left-sided hemiparesis. 6. History of DVT, status post IVC filter placement January of 2020. 7. Severe anasarca likely driven greatly by hypoalbuminemia. 8. Colon cancer, need for surgical resection. PLAN/RECOMMENDATIONS: 1. From a cardiovascular standpoint, the patient appears grossly edematous, but believe this could be more likely due to profound hypoalbuminemia and poor protein and calorie nutritional state. 2. Agree with Pulmonary Critical Care recommendation of broad-spectrum antibiotics and following up on cultures for suspected sepsis management. 3. Continue beta-abbe therapy as tolerated. 4. Monitor serial lactic acid level. 5. We will follow up on echocardiogram. 6. Of note, the patient has had previous ischemic risk stratification last month and did not appear terrible. She is definitely high risk patient, but assuming no active infectious issues, we would be okay with proceeding with surgery as her risk factors are really non modifiable. MD JORDY Dc/JAD /[id number]
--- NOTE | 2020-02-18 18:15 | NUR ---
Dr Ambrosio called for patient update, MD made aware of BP and HR, no new orders received. made aware of need for central line, no new orders received. Dr Dobson made aware of 200cc urine output from patient, no new orders received at this time. Patient resting quietly in bed, no s/s distress noted, no c/o pain.
[2020-02-18] MEDS ORDERED: LIDOCAINE HCL 2% LOCAL 20 ML VIAL ONE (20:52)
--- NOTE | 2020-02-18 21:00 | NUR ---
Discussed NS@80 with MD Ambrosio given patient's hx of CHF and +4 pitting generalized edema with weeping. states pt's ICV is collapsable, she is intravascularly dry, confirms continuation of NS@80 at this time. informed of low albumin level, orders received for 25g albumin IV. Preparing to insert central line.
[2020-02-18] MEDS ORDERED: ALBUMIN 25% 25GM 100ML 0.25 GM/ML BTL IV ONE (21:15)
--- NOTE | 2020-02-18 21:33 | NUR ---
CVC okay to use per MD Ambrosio.
--- NOTE | 2020-02-18 22:12 | Diagnostic Imaging Report ---
EXAMINATION: CHEST XRAY LINE PLACEMENT INDICATION: ^line placement ^[id number] ^[id number] ^Y COMPARISON: Chest x-ray dated 02/18/2020 at 1002 hours FINDINGS: AP view TUBES and LINES: Status post left internal jugular central line placement with tip projecting over cavoatrial junction. LUNGS: Lungs are well inflated. Mild central vascular congestion. PLEURA: Bilateral pleural effusions. No visible pneumothorax. HEART AND MEDIASTINUM: The cardiomediastinal silhouette is unremarkable. Aorta is calcified and tortuous. BONES AND SOFT TISSUES: No acute osseous lesion. Soft tissues are unremarkable. UPPER ABDOMEN: No free air under the diaphragm. IMPRESSION: Status post left internal jugular central line placement with tip projecting over cavoatrial junction. No visible pneumothorax. Pulmonary vascular congestion and mild to moderate bilateral pleural effusions. Signed by: Dr. Evelio Lucero MD on 02/18/2020 10:08 PM
[2020-02-18] MEDS: VANCOMYCIN 500MG/NS 0.9% 100ML 100 ML IV SCH (22:22)
[2020-02-18] MEDS ORDERED: ALBUMIN 25% 12.5GM 50ML 100 ML IV ONE (22:23)
[2020-02-19] VITALS (31 sets, daily range): BP systolic 77–113; BP diastolic 49–79
[2020-02-19 05:53] LABS: INR 1.5; PROTHROMBIN TIME 18.9 seconds (11.9-14.5)
[2020-02-19] MEDS: METRONIDAZOLE 500MG/NS 100ML 100 ML IV SCH ×3 (06:07→22:30)
[2020-02-19 06:12] LABS: MAGNESIUM 1.3 MG/DL (1.3-2.1); PHOSPHORUS 2.8 MG/DL (2.3-4.7)
[2020-02-19 06:14] LABS: CALCIUM IONIZED 1.1 mmol/L (1.09-1.30)
[2020-02-19 06:26] LABS: BASOPHILS % 0.3 % (0.0-1.0); EOSINOPHILS % 0.3 % (0.0-6.0); LYMPHOCYTES % 12.1 % (18.0-39.1); MEAN CORPUSCULAR HGB CONC 31.5 g/dL (31-35); MEAN CORPUSCULAR VOLUME 101.7 fL (81-99); MONOCYTES # (AUTO) 0.3 (0.2-0.8); MONOCYTES % 3.9 % (4.4-11.3); NEUTROPHILS # (AUTO) 6.6 (2.1-6.9); NEUTROPHILS % 82.6 % (38.7-80.0); PLATELET COUNT 251 x10e3/uL (140-360); RED BLOOD COUNT 1.81 x10e6/uL (3.6-5.1); RED CELL DISTRIBUTION WIDTH 20.5 % (11.7-14.4)
[2020-02-19 06:37] LABS: HEMATOCRIT 18.4 % (34.2-44.1); HEMOGLOBIN 5.8 g/dL (12.0-16.0)
[2020-02-19 07:21] LABS: ALANINE AMINOTRANSFERASE 13 IU/L (0-55); ALBUMIN 1.9 g/dL (3.5-5.0); ALBUMIN/GLOBULIN RATIO 1.2 (0.8-2.0); ALKALINE PHOSPHATASE 76 IU/L (40-150); ANION GAP 7.9 mmol/L (8-16); BLOOD UREA NITROGEN 14 mg/dL (7-26); BUN/CREATININE RATIO 19 (6-25); CARBON DIOXIDE 21 mmol/L (22-29); CHLORIDE 110 mmol/L (98-107); CREATININE, SERUM 0.73 mg/dL (0.57-1.11); EST GLOMERULAR FILTRATION RATE > 60 ML/MIN (60-); GLUCOSE 63 mg/dL (74-118); SODIUM 136 mmol/L (136-145)
[2020-02-19 07:26] LABS: CALCIUM 6.5 mg/dL (8.4-10.2); POTASSIUM 2.9 mmol/L (3.5-5.1)
[2020-02-19] MEDS: INSULIN LISPRO 100 UNIT/1 ML 3ML VIAL SQ SCH ×4 (07:30→21:00)
[2020-02-19] MEDS ORDERED: SODIUM CHLORIDE 0.9% 250ML 250 ML IV SCH (07:45)
--- NOTE | 2020-02-19 08:00 | NUR ---
Dr Ruth at bedside informed of critical labs Potassium 2.9, Ca 6.5 H/ H low and Dr Dobson aware patient to get Type match and 2units PRBC's (He ordered ICA normal) and informed him of temp 96.0 on Bare hugger, and blood pressure 77/57 see new orders and notes.
[2020-02-19] MEDS ORDERED: POTASSIUM CHLORIDE 20MEQ/100ML 200 ML IV ONE (08:30)
[2020-02-19] MEDS ORDERED: NOREPINEPHRINE 8 MG/D5W 250 ML 250 ML IV PRN (08:30)
[2020-02-19] MEDS: PANTOPRAZOLE SOD 40 MG TABEC PO SCH (08:49)
[2020-02-19] MEDS: CEFEPIME 1GM/NS 0.9% 50 ML 50 ML IV SCH (08:50)
[2020-02-19] MEDS: VANCOMYCIN 500MG/NS 0.9% 100ML 100 ML IV SCH ×2 (08:50→20:49)
[2020-02-19 09:45] LABS: IRON 51 ug/dL (50-170); TRANSFERRIN < 70 mg/dL (180-382)
--- NOTE | 2020-02-19 10:37 | Diagnostic Imaging Report ---
OR Fluoroscopy: IMPRESSION: Fluoroscopy service provided in the OR. Interpretation not requested. Signed by: Gareth Aivna MD on 02/19/2020 10:34 AM
[2020-02-19] MEDS: SODIUM CHLORIDE 0.9% 1000ML 1,000 ML IV SCH (10:41)
--- NOTE | 2020-02-19 11:33 | NUR ---
Daughter Tasha phoned back inquiring about visiting informed her Covid test is still pending results with let her no when resulted.
--- NOTE | 2020-02-19 11:46 | NUR ---
Dr Dobson at bedside update given
[2020-02-19 13:55] LABS: BASOPHILS % 0.3 % (0.0-1.0); EOSINOPHILS % 0.3 % (0.0-6.0); LYMPHOCYTES # (AUTO) 1.1 (1.0-3.2); LYMPHOCYTES % 10.6 % (18.0-39.1); MEAN CORPUSCULAR HGB CONC 31.3 g/dL (31-35); MEAN CORPUSCULAR VOLUME 102.1 fL (81-99); MONOCYTES # (AUTO) 0.5 (0.2-0.8); MONOCYTES % 4.5 % (4.4-11.3); NEUTROPHILS # (AUTO) 8.7 (2.1-6.9); NEUTROPHILS % 83.6 % (38.7-80.0); PLATELET COUNT 260 x10e3/uL (140-360); RED BLOOD COUNT 1.94 x10e6/uL (3.6-5.1); RED CELL DISTRIBUTION WIDTH 20.7 % (11.7-14.4)
[2020-02-19 13:58] LABS: HEMATOCRIT 19.8 % (34.2-44.1); HEMOGLOBIN 6.2 g/dL (12.0-16.0)
--- NOTE | 2020-02-19 14:15 | NUR ---
Blood transfusion 1 of 2 started see blood transfusion sheet
[2020-02-19 14:16] LABS: ANION GAP 10.9 mmol/L (8-16); BLOOD UREA NITROGEN 13 mg/dL (7-26); BUN/CREATININE RATIO 17 (6-25); CARBON DIOXIDE 19 mmol/L (22-29); CHLORIDE 110 mmol/L (98-107); CREATININE, SERUM 0.77 mg/dL (0.57-1.11); EST GLOMERULAR FILTRATION RATE > 60 ML/MIN (60-); GLUCOSE 122 mg/dL (74-118); POTASSIUM 3.9 mmol/L (3.5-5.1); SODIUM 136 mmol/L (136-145)
[2020-02-19 14:18] LABS: CALCIUM 6.7 mg/dL (8.4-10.2)
[2020-02-19 14:28] LABS: OVALOCYTES FEW; PLATELET ESTIMATE ADEQUATE; PLATELET MORPHOLOGY COMMENT RARE EDTA CLUMPING; RBC MORPHOLOGY COMMENT NORMAL
[2020-02-19] MEDS ORDERED: SODIUM CHLORIDE 0.9% 250ML 250 ML ONE ×2 (16:29→23:35)
[2020-02-19] MEDS: CENTRAL TPN FORMULA 1 BAG IV SCH (20:00)
[2020-02-19 20:43] LABS: ANION GAP 9.3 mmol/L (8-16); BLOOD UREA NITROGEN 13 mg/dL (7-26); BUN/CREATININE RATIO 18 (6-25); CARBON DIOXIDE 20 mmol/L (22-29); CHLORIDE 111 mmol/L (98-107); CREATININE, SERUM 0.74 mg/dL (0.57-1.11); EST GLOMERULAR FILTRATION RATE > 60 ML/MIN (60-); GLUCOSE 99 mg/dL (74-118); POTASSIUM 3.3 mmol/L (3.5-5.1); SODIUM 137 mmol/L (136-145)
[2020-02-19 20:44] LABS: MAGNESIUM 1.3 MG/DL (1.3-2.1); PHOSPHORUS 2.4 MG/DL (2.3-4.7)
[2020-02-19 20:47] LABS: CALCIUM 6.7 mg/dL (8.4-10.2)
[2020-02-19 20:56] LABS: BASOPHILS % 0.3 % (0.0-1.0); EOSINOPHILS % 0.4 % (0.0-6.0); HEMATOCRIT 30.2 % (34.2-44.1); HEMOGLOBIN 9.9 g/dL (12.0-16.0); LYMPHOCYTES # (AUTO) 1.2 (1.0-3.2); LYMPHOCYTES % 11.7 % (18.0-39.1); MEAN CORPUSCULAR HEMOGLOBIN 30.6 pg (28-32); MEAN CORPUSCULAR HGB CONC 32.8 g/dL (31-35); MEAN CORPUSCULAR VOLUME 93.2 fL (81-99); MONOCYTES # (AUTO) 0.4 (0.2-0.8); NEUTROPHILS # (AUTO) 8.8 (2.1-6.9); PLATELET COUNT 184 x10e3/uL (140-360); RED BLOOD COUNT 3.24 x10e6/uL (3.6-5.1); RED CELL DISTRIBUTION WIDTH 19.8 % (11.7-14.4)
[2020-02-19] MEDS ORDERED: POTASSIUM CHLORIDE 20MEQ/100ML 100 ML IV ONE (21:30)
[2020-02-20] VITALS (16 sets, daily range): BP systolic 101–129; BP diastolic 62–89
[2020-02-20] MEDS: INSULIN LISPRO 100 UNIT/1 ML 3ML VIAL SQ SCH ×4 (00:46→18:00)
[2020-02-20] MEDS: SODIUM CHLORIDE 0.9% 1000ML 1,000 ML IV SCH ×2 (02:42→21:11)
[2020-02-20 04:30] LABS: BASOPHILS % 0.4 % (0.0-1.0); EOSINOPHILS # (AUTO) 0.1 (0.0-0.4); EOSINOPHILS % 0.8 % (0.0-6.0); HEMATOCRIT 26.7 % (34.2-44.1); HEMOGLOBIN 8.8 g/dL (12.0-16.0); LYMPHOCYTES # (AUTO) 0.9 (1.0-3.2); LYMPHOCYTES % 11.9 % (18.0-39.1); MEAN CORPUSCULAR HEMOGLOBIN 31.5 pg (28-32); MEAN CORPUSCULAR VOLUME 95.7 fL (81-99); MONOCYTES # (AUTO) 0.4 (0.2-0.8); MONOCYTES % 4.6 % (4.4-11.3); NEUTROPHILS # (AUTO) 6.5 (2.1-6.9); NEUTROPHILS % 81.7 % (38.7-80.0); PLATELET COUNT 137 x10e3/uL (140-360); RED BLOOD COUNT 2.79 x10e6/uL (3.6-5.1); RED CELL DISTRIBUTION WIDTH 20.1 % (11.7-14.4)
[2020-02-20 04:33] LABS: CALCIUM IONIZED 1.1 mmol/L (1.09-1.30)
[2020-02-20 04:41] LABS: INR 1.44; PROTHROMBIN TIME 18.3 seconds (11.9-14.5)
[2020-02-20 04:42] LABS: PARTIAL THROMBOPLASTIN TIME 42.2 seconds (23.8-35.5)
[2020-02-20 04:51] LABS: ALANINE AMINOTRANSFERASE 15 IU/L (0-55); ALBUMIN/GLOBULIN RATIO 1.1 (0.8-2.0); ALKALINE PHOSPHATASE 80 IU/L (40-150); ANION GAP 9.2 mmol/L (8-16); BLOOD UREA NITROGEN 10 mg/dL (7-26); BUN/CREATININE RATIO 14 (6-25); CARBON DIOXIDE 20 mmol/L (22-29); CHLORIDE 113 mmol/L (98-107); CREATININE, SERUM 0.73 mg/dL (0.57-1.11); EST GLOMERULAR FILTRATION RATE > 60 ML/MIN (60-); GLUCOSE 131 mg/dL (74-118); MAGNESIUM 1.4 MG/DL (1.3-2.1); PHOSPHORUS 2.1 MG/DL (2.3-4.7); POTASSIUM 3.2 mmol/L (3.5-5.1); SODIUM 139 mmol/L (136-145)
[2020-02-20] MEDS: METRONIDAZOLE 500MG/NS 100ML 100 ML IV SCH ×3 (05:39→21:48)
[2020-02-20] MEDS: PANTOPRAZOLE SOD 40 MG TABEC PO SCH (07:51)
[2020-02-20] MEDS: CEFEPIME 1GM/NS 0.9% 50 ML 50 ML IV SCH (08:03)
[2020-02-20] MEDS: VANCOMYCIN 500MG/NS 0.9% 100ML 100 ML IV SCH ×2 (08:03→22:55)
--- NOTE | 2020-02-20 09:00 | NUR ---
Dr Ruth at bedside informed of K+ 3.2 see new orders and notes
[2020-02-20] MEDS: POTASSIUM CHLORIDE 20MEQ/100ML 100 ML IV PRN (09:13)
--- NOTE | 2020-02-20 10:17 | NUR ---
Lactic acid done
--- NOTE | 2020-02-20 10:40 | Diagnostic Imaging Report ---
EXAMINATION: CHEST SINGLE (PORTABLE) INDICATION: Shortness of breath COMPARISON: Chest radiograph 02/18/2020 FINDINGS: LINES/TUBES:Left IJ central venous catheter unchanged. EKG leads overlie the chest. LUNGS:The lungs are moderately inflated. There is perihilar fullness and indistinctness of the pulmonary vasculature. Unchanged bibasilar opacities, most likely subsegmental atelectasis. PLEURA:No pleural effusion or pneumothorax. MEDIASTINUM:The cardiomediastinal silhouette appears unchanged in size and shape. Atherosclerotic calcifications of the thoracic aorta. BONES/SOFT TISSUES:No acute osseous injury. ABDOMEN:No free air under the diaphragm. IMPRESSION: No significant interval change. Signed by: Reshma Dinh MD on 02/20/2020 10:37 AM
[2020-02-20 11:01] LABS: HEMATOCRIT 28.5 % (34.2-44.1); HEMOGLOBIN 9.3 g/dL (12.0-16.0)
--- NOTE | 2020-02-20 11:15 | NUR ---
Phoned Dr Shama erwin to transfer patient to [facility] [place].
[2020-02-20] MEDS: MIDODRINE HCL 5 MG TABLET PO SCH ×2 (11:42→16:32)
--- NOTE | 2020-02-20 11:58 | NUR ---
Phoned report to Med surg Nurse Room 299 Zachariah Butts also phoned daughter Tasha Flor of new room change.
--- NOTE | 2020-02-20 12:19 | NUR ---
Transferred patient to room 299 nurse Benjamín present condition stable
--- NOTE | 2020-02-20 12:41 | NUR ---
PATIENT RECEIVED FROM ICU PER STRETCHER. ALERT AND VERBALLY RESPONSIVE. EDEMA TO ALL EXTREMITIES, LEAKING BLISTERS TO BOTH ARMS. TPN AND IV FLUID INFUSING ORDERED. ROBERTSON CATHETER DRAINING YELLOW URINE. ON ISOLATION FOR ESBL IN URINE. ALL PERSONAL ITEMS CLOSE TO PATIENT, CALL LIGHT AT REACH.
[2020-02-20] MEDS: MEROPENEM 500MG/ NS 50ML 50 ML IV SCH ×2 (14:41→23:55)
--- NOTE | 2020-02-20 15:38 | NUR ---
Nutrition Intervention Note RD Recommendation(s) for Physician: -Recommend TPN @ goal rate of 65 mL/hr and 25 gm/day lipids (provides 1332 kcal and 78 g protein) -Recommend to advance diet when medically appropriate The patient meets criteria for unspecified SEVERE protein-calorie malnutrition. Plan of Care: RD following, monitoring for tolerance and adequacy, TPN recommendation Nutrition reason for involvement: TPN initiation RD Assessment (02/20/20) Pt is a 74 year old female admitted with acute respiratory distress. Pt originally came to the hospital to have a colon resection due to colon cancer, but pt was lethargic and poorly responsive. Pt is currently on a clear liquid diet. Pt is tolerating liquid diet per RN. TPN was started yesterday at 43 mL/hr. Pt reports a decreased appetite and PO intake for the past month. Pt was unsure of any weight changes or her usual weight. Per weight history, pt weighed 150 lbs in December 2019; therefore, no weight loss is evident since December. No N/V or chewing/swallowing issues reported. Pt also is edematous per chart. Recommendations provided. Will continue to monitor. Principal Problems/Diagnoses: acute respiratory distress PMH: Hypertension, essential, Type 2 diabetes with complications, History of DVT, status post IVC filter, Colon cancer in need for resection, History of stroke with residual left-sided hemiparesis and poor functional state. I/O: 500/450 GI: soft/non-tender abdomen Skin: last recorded BM 02/19 Labs: (02/19) Na 139, K 3.2, BUN 10, Cr 0.73, Glu 131, Ca 7.0, Phos 2.1 Meds: protonix, antibiotics, TPN @ 43 mL/hr Ht: 60 in Wt: 152.25 lbs BMI: 29.7 kg/m2 IBW: 100 lbs Malnutrition Evaluation (02/20/20) The patient meets criteria for unspecified SEVERE protein-calorie malnutrition. Energy intake: <75% of estimated energy requirements for 1 month Weight loss: No weight loss is evident since December 2019 per weight history in chart Fat loss: no loss identified per observation Muscle loss: no loss identified per observation Supporting Evidence: Fluid accumulation: moderate-severe (+3 edema right arm, 1 to +2 edema in left arm, +2 to +3 bill pitting edema to bilateral mid shins) per MD note 02/17 Functional Status: not assessed Nutrition Prescription (Diet Order): clear liquids, TPN @ 43 mL/hr with 50 gm lipids 3x/week (provides 925 kcal and 52 g protein) Estimated Nutritional Needs: [id number] calories/day (18-20 kcal/kg CBW) 69-104 g protein/day (1.0-1.5 g pro/kg CBW) Diet Adequacy: Not meeting calorie needs, Not meeting protein needs Tolerance: Tolerating PO Diet Education Needs Assessment:. Diet education not indicated, patient on temporary/transition diet. Nutrition Care Level: high Nutrition Diagnosis: Severe protein calorie malnutrition related to chronic illness as evidenced by pt meeting <75% of estimated energy needs for 1 month and moderate to severe fluid accumulation. Goal: Patient will meet 75-100% of estimated needs by follow up Progress: N/A Interventions: - Composition, Rate, Route, Recommended Modifications Monitoring/Evaluation: -Total energy intake, Total protein intake, Formula/Solution, Weight change Signed: Jodi Wilde RD, LD
--- NOTE | 2020-02-20 16:23 | NUR ---
PATIENT REPOSITIONED IN BED. TPN INFUSING ORDERED. CALL LIGHT AT REACH.
[2020-02-20] MEDS: CENTRAL TPN FORMULA 1 BAG IV SCH (20:45)
--- NOTE | 2020-02-20 21:30 | NUR ---
PATIENT RESTING IN BED IN STABLE CONDITION, NO SIGNS OF DISTRESS NOTED. IV FLUIDS ARE RUNNING AT ORDERED RATE ALONG WITH TPN. PATIENT VOICES NO PAIN AT THIS TIME. ROBERTSON CATHETER IS INTACT AND FLOWING. BED IS IN LOWEST POSITION, BOTH SIDE RAILS ARE UP, CALL LIGHT IS WITHIN EASY REACH,WILL CONTINUE TO MONITOR.
[2020-02-21] VITALS (7 sets, daily range): BP systolic 116–131; BP diastolic 76–96
[2020-02-21] MEDS: INSULIN LISPRO 100 UNIT/1 ML 3ML VIAL SQ SCH ×4 (00:51→18:00)
[2020-02-21 05:19] LABS: BASOPHILS # (AUTO) 0.1 (0.0-0.1); BASOPHILS % 0.5 % (0.0-1.0); EOSINOPHILS # (AUTO) 0.1 (0.0-0.4); HEMATOCRIT 30.9 % (34.2-44.1); HEMOGLOBIN 10.1 g/dL (12.0-16.0); LYMPHOCYTES % 9.9 % (18.0-39.1); MEAN CORPUSCULAR HEMOGLOBIN 31.3 pg (28-32); MEAN CORPUSCULAR HGB CONC 32.7 g/dL (31-35); MEAN CORPUSCULAR VOLUME 95.7 fL (81-99); MONOCYTES # (AUTO) 0.4 (0.2-0.8); MONOCYTES % 3.9 % (4.4-11.3); NEUTROPHILS # (AUTO) 8.4 (2.1-6.9); PLATELET COUNT 120 x10e3/uL (140-360); RED BLOOD COUNT 3.23 x10e6/uL (3.6-5.1); RED CELL DISTRIBUTION WIDTH 20.7 % (11.7-14.4)
[2020-02-21] MEDS: METRONIDAZOLE 500MG/NS 100ML 100 ML IV SCH ×3 (05:28→21:17)
[2020-02-21 05:41] LABS: ANION GAP 8.1 mmol/L (8-16); BLOOD UREA NITROGEN 7 mg/dL (7-26); BUN/CREATININE RATIO 11 (6-25); CARBON DIOXIDE 20 mmol/L (22-29); CHLORIDE 116 mmol/L (98-107); CREATININE, SERUM 0.61 mg/dL (0.57-1.11); EST GLOMERULAR FILTRATION RATE > 60 ML/MIN (60-); GLUCOSE 131 mg/dL (74-118); POTASSIUM 3.1 mmol/L (3.5-5.1); SODIUM 141 mmol/L (136-145)
[2020-02-21] MEDS: MEROPENEM 500MG/ NS 50ML 50 ML IV SCH ×3 (06:34→23:38)
--- NOTE | 2020-02-21 07:34 | NUR ---
PATIENT IN BED RESTING WITH EYES CLOSED, NO DISTRESS NOTED. TPN AND IV FLUID IN PROGRESS. ALL EXTREMITIES SWELLING, UPPER EXTREMITIES WEEPING, PADDED, AND ELEVATED. BED IN LOWER POSITION, CALL LIGHT AT REACH.
[2020-02-21] MEDS ORDERED: VANCOMYCIN 500MG/NS 0.9% 100ML 100 ML IV SCH (08:00)
[2020-02-21] MEDS: MIDODRINE HCL 5 MG TABLET PO SCH (08:20)
[2020-02-21] MEDS: PANTOPRAZOLE SOD 40 MG TABEC PO SCH (08:20)
--- NOTE | 2020-02-21 08:41 | Diagnostic Imaging Report ---
TECHNIQUE: Frontal view of the chest. INDICATION: ^shock ^[id number] ^[id number] COMPARISON: Prior day. DISCUSSION: Limited evaluation due to portable technique. Lines and hardware: Stable. Heart and mediastinum: Stable. Lungs and pleura: Stable central vascular congestion and prominent pulmonary vasculature. Question small left pleural effusion. Asymmetrical atelectasis is similar to prior exams. Soft tissues and bones: No acute abnormality. Stable chronic appearing fracture deformity of the right humeral surgical neck. IMPRESSION: Stable exam. Signed by: Harshad Hughes MD on 02/21/2020 8:38 AM
[2020-02-21] MEDS: VANCOMYCIN 500MG/NS 0.9% 100ML 100 ML IV SCH (09:01)
[2020-02-21] MEDS: POTASSIUM CHLORIDE 20MEQ/100ML 100 ML IV PRN (10:30)
--- NOTE | 2020-02-21 15:04 | NUR ---
RD received consult. Pt is currently receiving TPN @ 43 mL/hr. RD also attached TPN recommendations to pts chart on unit. Please see dietitian note from 02/19 with nutrition assessment details. Recommendations: - Recommend standard TPN @ goal rate of 65 mL/hr and 25 gm/day lipids (30% 500 mL Dextrose, 10% 500 mL AA, 25 gm/day lipids, 1 mg/day folic acid, and 100 mg/day thiamine, total volume: 1560 mL) - provides 1332 kcal and 78 g protein) -Recommend advancing diet when medically appropriate
--- NOTE | 2020-02-21 16:44 | NUR ---
PATIENT EXERCISED IN ROOM WITH PHYSICAL THERAPY. REPOSITION IN BED WITH CALL LIGHT AT REACH.
--- OUTSIDE RECORDS SUMMARY | 2020-02-21 18:38 | XMS REPORT | Continuity of Care Document ---
Author Author [facility] t Organization [facility] Address [address] [place] [address] Phone Unavailable Care Team Providers Care Staffing Branch Manager Name Role Phone MD Rimma GUADALUPE PCP DOBSON, SOUHEIL Attphys Unavailable DOBSON, ANA Attphys Unavailable DOBSON, SOUHEIL Admphys Unavailable Payers Payer Name Policy Type Policy Number Effective Date Expiration Date [facility] Science [facility] [id number] 2019 00:00 :00 [facility] Medicare A & B [id number] 2010 00:00:00 [facility] Problems Condition Name Condition Details Condition Category Status Onset Date Resolution Date Last Treatment Date Treating Clinician Comments Source Deep vein thrombosis (DVT) Problem Active [facility] Pulmonary embolism Problem Active [facility] Mass of colon Problem Active [facility] Allergies, Adverse Reactions, Alerts This patient has no known allergies or adverse reactions. Social History Social Habit Start Date Stop Date Quantity Comments Source Sex Ass[birth year] At 1945 00:00:00 1945 00[birth year]00 Female [facility] Medications Ordered Medication Name Filled Medication Name Start Date Stop Da te Current Medication? Ordering Clinician Indication Dosage Frequency Signature (SIG) Comments Components Source Acetaminophen Acetaminophen Yes 325 Every 6 Hours as needed for Elevated Temperature [facility] Apixaban (Eliquis) 5 Mg TABLET Apixaban (Eliquis) 5 Mg TABLET Yes 5 Twice A Day [facility] Aspirin (Aspirin Ec) 81 Mg TABLET.DR Aspirin (Aspirin Ec) 81 Mg TAB LET.DR Yes 81 Daily [facility] Cyanocobalamin (Vitamin B-12) 1,000 Mcg TAB Cyanocobal pierce (Vitamin B-12) 1,000 Mcg TAB Yes 500 Daily [facility] Ferrous Sulfate Ferrous Sulfate Yes 325 Twice A Day [facility] Latanoprost Latanoprost Yes 2.5 Bedtime [facility] Metoprolol Tartrate Metoprolol Tartrate Yes 50 Every 12 Hours [facility] Pantoprazole Sodium Pantoprazole Sodium Yes 40 Daily [facility] Solifenacin Succinate (Vesicare) 5 Mg TABLET Solifenac in Succinate (Vesicare) 5 Mg TABLET Yes 5 Daily [facility] Trazodone Hcl Trazodone Hcl Yes 25 Bedtime [facility] Vitamin D Vitamin D Yes 2000 Daily [facility] Clonidine Hcl Clonidine Hcl 2020-01-19 00:00:00 No 1 As Needed [facility] Insulin Aspart (Novolog) 100 Unit/1 Ml CARTRIDGE Insul in Aspart (Novolog) 100 Unit/1 Ml CARTRIDGE 2020-01-19 00:00:00 No 0 Twic e A Day [facility] Linagliptin (Tradjenta) 5 Mg TABLET Linagliptin (Tradjenta) 5 Mg TABLET 2020-01-19 00:00:00 No 5 Daily [facility] Nitroglycerin (Nitroglycerin Patch) 1 Each PATCH.TD24 Nitroglycerin (Nitroglycerin Patch) 1 Each PATCH.TD24 2020-01-19 00:00:00 No 1 Daily [facility] Bisacodyl Bisacodyl 2020-01-16 00:00:00 No 20 Daily [facility] Cyanocobalamin (Vitamin B-12) 1,000 Mcg TAB Cyanocobal pierce (Vitamin B-12) 1,000 Mcg TAB 2020-01-16 00:00:00 No 500 Daily [facility] Insulin Aspart (Novolog) 100 Unit/1 Ml CARTRIDGE Insul in Aspart (Novolog) 100 Unit/1 Ml CARTRIDGE 2020-01-16 00:00:00 No 5 Twic e A Day [facility] Linagliptin (Tradjenta) 5 Mg TABLET Linagliptin (Tradjenta) 5 Mg TABLET 2020-01-16 00:00:00 No 5 Bedtime [facility] Magnesium Citrate Magnesium Citrate 2020-01-16 00:00:00 No 10 Bedtime [facility] Solifenacin Succinate (Vesicare) 5 Mg TABLET Solifenac in Succinate (Vesicare) 5 Mg TABLET 2020-01-16 00:00:00 No 5 Daily [facility] Timolol (Betimol) 5 Ml DROPS Timolol (Betimol) 5 Ml DROPS 2020-01-16 00:00:00 No 1 Bedtime [facility] Vital Signs Vital Name Observation Time Observation Value Comments Source Body Temperature 2020-01-19 15:31:00 97.2 [degF] [facility] BMI (Body Mass Index) 2020-01-16 22:40:00 29.3 kg/m2 [facility] Weight 2020-01-16 18:26:00 150 [lb_av] [facility] Procedures Procedure Date / Time Performed Performing Clinician [facility] e Computed tomography of chest with contrast 2020-01-16 00:00:00 [facility] Computed tomography of abdomen and pelvis with contrast 00:00:00 [facility] Plan of Care Planned Activity Planned Date Details Comments Source Instructions Deep Vein Thrombosis [facility] Instructions [facility] Start Date/Time End Date/Time Encounter Type Admission Type [facility] Care Facility Care Department Encounter ID Source 2020-01-16 21:28:00 2020-01-19 18:02:00 Discharged Inpatient 1 SHAHRAM DOBSON [facility] [id number] [facility] 2020-01-14 11:45:00 2020-01-14 11:45:00 Registered Surgical Day Car e 3 DOBSON, ANA [facility] [id number] [facility] Results Test Description Test Time Test Comments Results Result Comments Source CHEST SINGLE (PORTABLE) 2020-02-21 08:36:00 [facility] 1945 Sex: [place] [address] Patient Name: CALVIN CARVER MR #: [id number] : 1945 Age/Sex: 74/F Req #: [id number] [facility] Physician: SHAHRAM DOBSON MD Ordered by: DELVIN JOLLEY MD Report #: [id number] Location: MED/SURG3 Room/Bed: [facility] Procedure: [id number] DX/CHEST SINGLE (PORTABLE) Exam Date: 02/21/20 Exam Time: 614 REPORT STATUS: Signed TECHNIQUE: Frontal view of the chest. INDICATION: shock [id number] COMPARISON: Prior day. DISCUSSION: Limited evaluation due to portable technique. Lines and hardware: Stable. Heart and mediastinum: Stable. Lungs and pleura: Stable central vascular congestion and prominent pulmonary vasculature. Question small left pleural effusion. Asymmetrical atelectasis is similar to prior exams. Soft tissues and bones: No acute abnormality. Stable chronic appearing fracture deformity of the right humeral surgical neck. IMPRESSION: Stable exam. Signed by: Giles Hughes MD on 02/21/2020 8:38 AM Dictated By: GILES HUGHES MD 7 Transcribed By: PAO on 02/21/20837 COPY TO: DELVIN JOLLEY MD CHEST SINGLE (PORTABLE) 2020-02-20 10:36:00 [facility] CALVIN CARVER : 1945 Sex: F [place] [address] Patient Name: CALVIN CARVER MR #: [id number] : 1945 Age/Sex: 74/F Req #: [id number] Adm Physician: SHAHRAM DOBSON MD Ordered by: DELVIN JOLLEY MD Report #: [id number] Location: ICU Room/Bed: ICU 194 Procedure: [id number] DX/CHEST SINGLE (PORTABLE) Exam Date: 02/20/20 Exam Time: 0535 REPORT STATUS: Signed EXAMINATION: CHEST SINGLE (PORTABLE) INDICATION: Shortness of breath COMPARISON: Chest radiograph 02/18/2020 FINDINGS: LINES/TUBES:Left IJ central venous catheter unchanged. EKG leads overlie the chest. LUNGS:The lungs are moderately inflated. There is perihilar fullness and indistinctness of the pulmonary vasculature. Unchanged bibasilar opacities, most likely subsegmental atelectasis. PLEURA:No pleural effusion or pneumothorax. MEDIASTINUM:The cardiomediastinal silhouette appears unchanged in size and shape. Atherosclerotic calcifications of the thoracic aorta. BONES/SOFT TISSUES:No acute osseous injury. ABDOMEN:No free air under the diaphragm. IMPRESSION: No significant interval change. Signed by: Nelly Epps MD on 02/20/2020 10:37 AM Dictated By: NELLY EPPS MD 1037 Transcribed By: PAO on 02/20/20 1037 COPY TO: DELVIN JOLLEY MD IR CONSULT 2020-02-19 10:33:00 [facility] 1945 Sex: [place] [address] Patient Name: CALVIN CARVER MR #: [id number] : 1945 Age/Sex: 74/F Req #: [id number] Adm Physician: SHAHRAM DOBSON MD Ordered by: DELVIN JOLLEY MD Report #: [id number] Location: ICU Room/Bed: ICU 194-1 Procedure: [id number] DX/IR CONSULT Exam Date: Exam Time: REPORT STATUS: Signed OR Fluoroscopy: IMPRESSION: Fluoroscopy service provided in the OR. Interpretation not requested. Signed by: Gareth Childers MD on 02/19/2020 10:34 AM Dictated By: GARETH CHILDERS MD 33 Transcribed By: PAO on 02/19/201033 COPY TO: DELVIN JOLLEY MD CHEST XRAY LINE PLACEMENT 2020-02-18 22:06:00 [facility] 1945 Sex: [place] [address] Patient Name: CALVIN CARVER MR #: [id number] : 1945 Age/Sex: 74/F Req #: [id number] Adm Physician: SHAHRAM DOBSON MD Ordered by: ADÁN CEE MD Report #: [id number] Location: ICU Room/Bed: ICU 194-1 Procedure: [id number] DX/CHEST XRAY LINE PLACEMENT Exam Date: 02/18/20 Exam Time: 2129 REPORT STATUS: Signed EXAMINATION: CHEST XRAY LINE PLACEMENT INDICATION: line placement [id number] Y COMPARISON: Chest x-ray dated 02/18/2020 at 1002 hours FINDINGS: AP view TUBES and LINES: Status post left internal jugular central line placement with tip projecting over cavoatrial junction. LUNGS: Lungs are well inflated. Mild central vascular congestion. PLEURA: Bilateral pleural effusions. No visible pneumothorax. HEART AND MEDIASTINUM: The cardiomediastinal silhouette is unremarkable. Aorta is calcified and tortuous. BONES AND SOFT TISSUES: No acute osseous lesion. Soft tissues are unremarkable. UPPER ABDOMEN: No free air under the diaphragm. IMPRESSION: Status post left internal jugular central line placement with tip projecting over cavoatrial junction. No visible pneumothorax. Pulmonary vascular congestion and mild to moderate bilateral pleural effusions. Signed by: Dr. Evelio Del Valle MD on 02/18/2020 10:08 PM Dictated By: EVELIO DEL VALLE MD 07 Transcribed By: PAO on 02/18/202207 COPY TO: ADÁN CEE MD CT ABDOMEN/PELVIS W 2020-02-18 15:20:00 [facility] CALVIN CARVER : 1945 Sex: F [facility] [address] [place] [address] Patient Name: CALVIN CARVER MR #: [id number] : 1945 Age/Sex: 74/F Req #: [id number] Adm Physician: SHAHRAM DOBSON MD Ordered by: BARBI HUBBARD DO Report #: [id number] Location: ICU Room/Bed: ICU Replaced by [facility] Procedure: [id number] CT/CT ABDOMEN/PELVIS W Exam Date: 02/18/20 Exam Time: 1420 REPORT STATUS: Signed EXAM: CT Abdomen and Pelvis WITH intravenous contrast INDICATION: Altered mental status COMPARISON: CT abdomen and pelvis of 01/06/2020 TECHNIQUE: Abdomen and pelvis were scanned utilizing a multidetector helical scanner from the lung base to the pubic symphysis after administration of IV contrast. Coronal and sagittal reformations were obtained. Routine protocol was performed. Scan was performed during portal venous phase. IV CONTRAST: 100mL of Isovue 370 ORAL CONTRAST: Water RADIATION DOSE: Total DLP: 569 mGy*cm Dose modulation, iterative reconstruction, and/or weight based adjustment of the mA/kV was utilized to reduce the radiation dose to as low as reasonably achievable. FINDINGS: LOWER THORAX: Please refer to report from concurrently performed chest CT for intrathoracic findings HEPATOBILIARY: Severe diffuse hepatic steatosis. Mildly nodular liver surface contour compatible with hepatic cirrhosis. Redemonstration of cholelithiasis. SPLEEN: No splenomegaly. PANCREAS: No focal masses or ductal dilatation. ADRENALS: No adrenal nodules. KIDNEYS/URETERS: No hydronephrosis or renal calculi. Unchanged renal cysts. PELVIC ORGANS/BLADDER: Capellan catheter in place. PERITONEUM / RETROPERITONEUM: No free air or fluid. LYMPH NODES: No lymphadenopathy. VESSELS: Scattered athetotic calcifications of the nonaneurysmal abdominal aorta and major branches. IVC filter in place. GI TRACT: Again seen is masslike wall thickening of the descending colon associated with heterogeneous enhancement. BONES AND SOFT TISSUES: No acute osseous injury. Diffuse soft tissue edema. IMPRESSION: Redemonstration of ascending colon masslike enhancing wall thickening concerning for malignancy. Hepatic steatosis, hepatic cirrhosis, and small volume ascites. Cholelithiasis. Signed by: Nelly Epps MD on 02/18/2020 3:36 PM Dictated By: NELLY EPPS MD 35 Transcribed By: PAO on 02/18/201535 COPY TO: BARBI HUBBARD DO CT CHEST W 2020-02-18 15:13:00 [facility]: CALVIN CARVER : 1945 Sex: F [place] [address] Patient Name: CALVIN CARVER MR #: [id number] : 1945 Age/Sex: 74/F Req #: [id number] Adm Physician: SHAHRAM DOBSON MD Ordered by: BARBI HUBBARD DO Report #: [id number] Location: ICU Room/Bed: ICU Replaced by [facility] Procedure: [id number] CT/CT CHEST W Exam Date: 02/18/20 Exam Time: 1420 REPORT STATUS: Signed EXAM: CT Chest WITH contrast- Pulmonary Embolism Protocol INDICATION: Altered mental status COMPARISON: Chest radiograph earlier the same day TECHNIQUE: Chest was scanned utilizing a multidetector helical scanner from the lung apex through the level of the diaphragm after administration of IV contrast. Thin section reconstructions were obtained with special concentration on the pulmonary arteries. Coronal and sagittal reformations were obtained. Pulmonary embolism protocol was performed. IV CONTRAST: 100 cc of Isovue 370 RADIATION DOSE: Total DLP: 460 mGy*cm Dose modulation, iterative reconst ruction, and/or weight based adjustment of the mA/kV was utilized to reduce the radiation dose to as low as reasonably achievable. COMPLICATIONS: None FINDINGS: LINES/ TUBES: None. PULMONARY ARTERIES: No filling defect is identified within the pulmonary arteries to the segmental level. The subsegmental pulmonary arteries are not well opacified. Main pulmonary artery measures 2.6 cm in diameter. LUNGS AND AIRWAYS: The central airways are patent. No focal consolidation. No airspace edema. Dependent subsegmental atelectasis of the right and left lower lobes. PLEURA: Moderate bilateral pleural effusions. No pneumothorax. HEART AND MEDIASTINUM: The thyroid gland is normal. No mediastinal, hilar or axillary lymphadenopathy. The heart is normal in size.. There is no pericardial effusion. UPPER ABDOMEN: Please see the separate dictation for the concurrently performed abdomen and pelvis CT for a detailed discussion of intra-abdominal findings. BONES: No suspicious lytic or blastic lesions. No acute osseous injury. SOFT TISSUES: Diffuse of subcutaneous soft tissue edema. IMPRESSION: No pulmonary embolism. Moderate bilateral pleural effusions and bibasilar dependent subsegmental atelectasis. Signed by: Nelly Epps MD on 02/18/2020 3:17 PM Dictated By: NELLY EPPS MD 9705 Transcribed By: PAO on 02/18/20 4357 COPY TO: BARBI HUBBARD, DO CT BRAIN WO 2020-02-18 14:50:00 [facility]: CALVIN CARVER : 1945 Sex: F [place] [address] Patient Name: CALVIN CARVER MR #: [id number] : 1945 Age/Sex: 74/F Req #: [id number] Adm Physician: SHAHRAM DOBSON MD Ordered by: BARBI HUBBARD DO Report #: [id number] Location: ICU Room/Bed: ICU Replaced by [facility] Procedure: [id number] CT/CT BRAIN WO Exam Date: Exam Time: REPORT STATUS: Signed CT BRAIN WO HISTORY: Altered mental status COMPARISON: None. Technique: Noncontrast axial scans were obtained from skull base to the vertex. Coronal and sagittal reconstructions obtained from the axial data. One or more of the following dose reduction techniques were used: Automated exposure control, adjustment of the mA and/or kV according to patient size, and/or utilization of iterative reconstruction technique. Beam hardening and motion artifacts obscure some details. DISCUSSION: Scalp/Skull: Unremarkable. Brain sulci: Mildly prominent. Ventricles: Compensatory dilatation. Extra-axial spaces: No masses or fluid collections. Diffuse vascular calcifications are seen throughout the anterior and posterior circulation. Parenchyma: Areas of encephalomalacia along the lateral right temporal lobe, right inferior parietal lobule, and throughout the left cerebellum are present. Severe bilateral deep white matter hypodensity is likely chronic microvascular ischemic change. Otherwise, no masses, hemorrhage, or large vascular territory acute infarct. Dural sinuses: No abnormal densities. Sellar/Suprasellar region: Intact. Skull base: Intact. Incidental findings: None. IMPRESSION: 1. No acute intracranial abnormalities. 2. 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 3. Severe supratentorial chronic microvascular ischemic change. Generalized cerebral volume loss. 4. Extensive diffuse vascular calcifications throughout the anterior and posterior circulation. Signed by: Dr. Arie Richard M.D. on 02/18/2020 2:56 PM Dictated By: ARIE RICHARD MD 55 Transcribed By: PAO on 02/18/201455 COPY TO: BARBI HUBBARD DO CHEST SINGLE (PORTABLE) 2020-02-18 10:22:00 [facility] 1945 Sex: [place] [address] Patient Name: CALVIN CARVER MR #: [id number] : 1945 Age/Sex: 74/F Req #: [id number] Adm Physician: SHAHRAM DOBSON MD Ordered by: DELVIN JOLLEY MD Report #: [id number] Location: ICU Room/Bed: ICU 1941 Procedure: [id number] DX/CHEST SINGLE (PORTABLE) Exam Date: 02/18/20 Exam Time: 1000 REPORT STATUS: Signed EXAMINATION: CHEST SINGLE (PORTABLE) INDICATION: Shortness of breath COMPARISON: Chest CT 01/16/2020 FINDINGS: LINES/TUBES:EKG leads overlie the chest. LUNGS:The lungs are moderately inflated. Mild bibasilar opacities. P LEURA:Trace bilateral pleural effusions. No pneumothorax. MEDIASTINUM:The cardiomediastinal silhouette appears normal in size and shape. Atherosclerotic calcifications of the thoracic aorta. BONES/SOFT TISSUES:No acute osseous injury. ABDOMEN:No free air under the diaphragm. IMPRESSION: Trace bilateral pleural effusions. Mild bibasilar opacities, more likely atelectasis than superimposed aspiration or pneumonia. Signed by: Nelly Epps MD on 02/18/2020 10:23 AM Dictated By: NELLY EPPS MD 1023 Transcribed By: PAO on 02/18/20 1023 COPY TO: DELVIN JOLLEY MD Capillary blood glucose measurement by glucometer (mas s/volume) 2020-01-19 14:52:00 Test Item Bedside Glucose (test code = 07547-3) 137 70-120 Meter ID: [id number] [id number] 12:54:00 [facility] [address] [address] Patient Name : CALVIN CARVER MR #: [id number] : 1945 Age/Sex: 74/F Adm Physician : SHAHRAM DOBSON MD Admit Date : 01/16/20 Location : MED/SURG3 Room/Bed : 295 REPORT: Myoview St ress Test DATE OF STUDY: 01/17/2020 10:03:00 Stress Test - Treadmill O NLY This is associated with dictation ID #[id number]. TITLE OF REPORT : Lexiscan nuclear stress test. INDICATION FOR STUDY: This is a 74-year- old lady with multiple comorbidities including blindness, who is unable to exe rcise, found to have a colonic mass and is in need for ischemic risk stratific ation prior to undertaking GI operation. The patient is unable to exercise du e to her clinical state. DESCRIPTION OF PROCEDURE: After risks, benefits , pros, and cons of today's Lexiscan nuclear stress test explained to the ele ent, the patient agreed to proceed. This is a 2-day protocol. Initially, she came on January 17, 2020, received an 11 mCi dose of technetium-99m tetrofosmi n intravenously. After 40 minutes, the patient was taken to the [facility] SPECT came ra for resting myocardial perfusion imaging. The next day, the patient was th en brought to the stress lab where 12-lead EKG monitoring and blood pressure m onitoring were obtained. She received a dose of Lexiscan 0.4 mg intravenously f ollowed by 30.4 mCi dose of technetium-99m tetrofosmin intravenously. Resting heart rate guerline from a baseline of 87 beats per minute to a maximum of 104 be ats per minute. Blood pressure went from baseline of 140/95 down to 95/50, wh ich is an appropriate hemodynamic response. With Lexiscan infusion, there wer e no chest pain symptoms or ST-T changes. Underlying EKG reveals the presence of sinus rhythm, incomplete right bundle-branch block and inferior Q-waves in 3 and aVF, and again with Lexiscan infusion, there were no ischemic EKG change s or symptoms. After 25 minutes, the patient was then taken to the SPECT came ra for stress myocardial perfusion imaging. FINDINGS: 1. Resting myoc ardial perfusion imaging reveals a moderate area of decreased uptake in the in ferior wall. 2. Stress myocardial perfusion imaging reveals the same moderate area of decreased uptake in the inferior wall, appears largely unchanged. 3. The following gated measurements were obtained. End-diastolic volume was 29 mL, end systolic volume 10 mL, calculated left ventricular ejection fraction i s 67%, has notable small cavity and wall motion seems to be notable for inferi or wall hypokinesis. CONCLUSIONS: 1. Abnormal myocardial perfusion im aging study revealing a moderate-sized area of decreased uptake in the inferio r wall matched at rest and stress compatible with scar, but no ischemia noted. 2. Normal left ventricular function with calculated ejection fraction of 67% with notable inferior wall hypokinesis, which is compatible with old CO. 3 . Overall, this stress test shows no areas of ischemia, but rather an area of moderate-sized fixed and decreased uptake in the inferior wall compatible with a n old CO. MD JORDY Dc/JAD /[id number] Signature Date Dictated By: DIDIER BOLTON MD Transcribed By: JAD on 01/18/20 <Electronically signed by DIDIER DOS SANTOS MD><<Signature on File>>01/18/20 2035 COPY TO: Blood leukocytes automated count (number/volume)2020-01-18 06:15:00* Test Item Value Reference Range Interpretation Comments White Blood Count (test code = 6690-2) 8.53 4.8-10.8 [facility] (number/volume)2020-01-18 06:15:00* Test Item Value Reference Range Interpretation Comments Red Blood Count (test code = 789-8) 3.60 3.6-5.1 [facility] measurement (moles/volume)2020-01-18 06:15:00* Test Item Value Reference Range Interpretation Comments Hemoglobin (test code = 28883-3) 10.7 12.0-16.0 [facility] blood hematocrit (volume fraction)2020-01-18 06:15:00* Test Item Value Reference Range Interpretation Comments Hematocrit (test code = 4544-3) 34.1 34.2-44.1 [facility] erythrocyte mean corpuscular oamabr3102-42-35 06:15:00* Test Item Value Reference Range Interpretation Comments Mean Corpuscular Volume (test code = 787-2) 94.7 81-99 [facility] mean corpuscular hemoglobin (mass per erythrocyte)2020-01-18 06:15:00* Test Item Value Reference Range Interpretation Comments Mean Corpuscular Hemoglobin (test code = 785-6) 29.7 28-32 [facility] erythrocyte mean corpuscular hemoglobin concentration measurement (mass/volume)2020-01-18 06:15:00* Test Item Value Reference Range Interpretation Comments Mean Corpuscular Hemoglobin Concent (test code = 786-4) 31.4 31-35 [facility] CampusRDW OtpGm-Ous2630-07-02 06:15:00* Test Item Value Reference Range Interpretation Comments Red Cell Distribution Width (test code = 92517-8) 15.0 11.7 -14.4 [facility] CampusAutunc health rex holly springsed blood platelet count (count/volume)2020-01-18 06:15:00* Test Item Value Reference Range Interpretation Comments Platelet Count (test code = 777-3) 274 140-360 [facility] neutrophil count as percentage of total ikzxcmiszd5566-44-06 06:15:00* Test Item Value Reference Range Interpretation Comments Neutrophils (%) (Auto) (test code = 62350-5) 75.8 38.7-80.0 [facility] CampusAutunc [facility] springsed blood lymphocyte count as percentage ot total cjiqpjlrvz2634-47-71 06:15:00* Test Item Value Reference Range Interpretation Comments Lymphocytes (%) (Auto) (test code = 736-9) 14.0 18.0-39.1 [facility] CampusAutomated blood monocyte count as percentage of total rbsmxtgvnf7016-17-04 06:15:00* Test Item Value Reference Range Interpretation Comments Monocytes (%) (Auto) (test code = 5905-5) 8.6 4.4-11.3 [facility] CampusAutom[facility] blood eosinophil count as percentage of total csktozentx0809-92-82 06:15:00* Test Item Value Reference Range Interpretation Comments Eosinophils (%) (Auto) (test code = 713-8) 0.6 0.0-6.0 [facility] CampusAutom[facility] blood basophil count as percentage of total umacjpvplq4147-84-60 06:15:00* Test Item Value Reference Range Interpretation Comments Basophils (%) (Auto) (test code = 706-2) 0.5 0.0-1.0 [facility] CampusFluoroscopic procedure less than one hour mlhmiyis9309-68-55 06:15:00* Test Item Value Reference Range Interpretation Comments IM GRANULOCYTES % (test code = IM GRANULOCYTES %) 0.5 0.0- 1.0 [facility] CampusAutom[facility] blood neutrophil count 2020-01-18 06:15:00* Test Item Value Reference Range Interpretation Comments Neutrophils # (Auto) (test code = 751-8) 6.5 2.1-6.9 [facility] CampusBlood lymphocytes count (number/volume) 2020-01-18 06:15:00* Test Item Value Reference Range Interpretation Comments Lymphocytes # (Auto) (test code = 04014-1) 1.2 1.0-3.2 [facility] CampusBlood monocytes automated count (number/volume)2020-01-18 06:15:00* Test Item Value Reference Range Interpretation Comments Monocytes # (Auto) (test code = 742-7) 0.7 0.2-0.8 [facility] CampusAutomated blood eosinophil count 2020-01-18 06:15:00* Test Item Value Reference Range Interpretation Comments Eosinophils # (Auto) (test code = 711-2) 0.1 0.0-0.4 [facility] CampusAutomated blood basophil count (count/volume)2020-01-18 06:15:00* Test Item Value Reference Range Interpretation Comments Basophils # (Auto) (test code = 704-7) 0.0 0.0-0.1 [facility] CampusFluoroscopic procedure less than one hour iajcrswu3617-25-36 06:15:00* Test Item Value Reference Range Interpretation Comments Absolute Immature Granulocyte (auto (khurram t code = Absolute Immature Granulocyte (auto) 0.04 0-0.1 [facility] sodium measurement (moles/volume)2020-01-18 06:15:00* Test Item Value Reference Range Interpretation Comments Sodium Level (test code = 2951-2) 138 136-145 [facility] potassium measurement (moles/volume)2020-01-18 06:15:00* Test Item Value Reference Range Interpretation Comments Potassium Level (test code = 2823-3) 3.7 3.5-5.1 [facility] chloride measurement (moles/volume)2020-01-18 06:15:00* Test Item Value Reference Range Interpretation Comments Chloride Level (test code = 2075-0) 107 98-107 [facility] plasma carbon dioxide, total measurement (moles/volume)2020-01-18 06:15:00* Test Item Value Reference Range Interpretation Comments Carbon Dioxide Level (test code = 2028-9) 23 22-29 [facility] plasma anion yzx5905-81-56 06:15:00* Test Item Value Reference Range Interpretation Comments Anion Gap (test code = 86562-9) 11.7 8-16 [facility] urea nitrogen measurement (mass/volume)2020-01-18 06:15:00* Test Item Value Reference Range Interpretation Comments Blood Urea Nitrogen (test code = 3094-0) 16 7-26 [facility] plasma creatinine measurement (mass/volume)2020-01-18 06:15:00* Test Item Value Reference Range Interpretation Comments Creatinine (test code = 2160-0) 0.72 0.57-1.11 [facility] plasma urea nitrogen/creatinine mass jshfi8954-18-61 06:15:00* Test Item Value Reference Range Interpretation Comments BUN/Creatinine Ratio (test code = 3097-3) 22 6-25 [facility] CampusEstimated glomerular filtration rate (GFR) arivfjbrollsd9488-86-68 06:15:00* Test Item Value Reference Range Interpretation Comments Estimat Glomerular Filtration Rate (test code = 372359549) > 60 >60 Ranges were taken from the National Kidney Disease Education Program and the [employer] literature.Reference ranges:60 or greater: Ppbgzw73-81 ( for 3 consecutive months): Chronic kidney disease 15 or less: Kidney failureThe Hospitals of [facility] East CampusGlucose iodhhgytlka1102-80-23 06:15:00* Test Item Value Reference Range Interpretation Comments Glucose Level (test code = OQD4748) 93 74-118 [facility] plasma calcium measurement (mass/volume)2020-01-18 06:15:00* Test Item Value Reference Range Interpretation Comments Calcium Level (test code = 82865-6) 7.1 8.4-10.2 [facility] plasma total bilirubin measurement (mass/volume)2020-01-18 06:15:00* Test Item Value Reference Range Interpretation Comments Total Bilirubin (test code = 1975-2) 0.5 0.2-1.2 [facility] CampusFluoroscopic procedure less than one hour entpgjst0246-74-46 06:15:00* Test Item Value Reference Range Interpretation Comments Aspartate Amino Transf (AST/SGOT) (test code = Aspartate Amino Transf (AST/SGOT)) 14 5-34 [facility] or plasma alanine aminotransferase measurement (enzymatic activity/volume)2020-01-18 06:15:00* Test Item Value Reference Range Interpretation Comments Alanine Aminotransferase (ALT/SGPT) (test code = 1742-6) 9 0-55 [facility] or plasma protein measurement (mass/volume)2020-01-18 06:15:00* Test Item Value Reference Range Interpretation Comments Total Protein (test code = 2885-2) 4.3 6.5-8.1 [facility]ere[facility] or plasma albumin measurement (mass/volume)2020-01-18 06:15:00* Test Item Value Reference Range Interpretation Comments Albumin (test code = 1751-7) 2.1 3.5-5.0 [facility] CampusPlasma globulin measurement (mass/volume) 2020-01-18 06:15:00* Test Item Value Reference Range Interpretation Comments Globulin (test code = 15784-3) 2.2 2.3-3.5 [facility] albumin/globulin mass ymgon8201-19-35 06:15:00* Test Item Value Reference Range Interpretation Comments Albumin/Globulin Ratio (test code = 1759-0) 1.0 0.8-2.0 [facility]ere[facility] or plasma alkaline phosphatase measurement (enzymatic activity/volume)2020-01-18 06:15:00* Test Item Value Reference Range Interpretation Comments Alkaline Phosphatase (test code = 6768-6) 62 40-150 [facility] plasma thyrotropin measurement by detection limit <= 0.005 miu/l (units/volume)2020-01-18 06:15:00* Test Item Value Reference Range Interpretation Comments Thyroid Stimulating Hormone (TSH) (test code = 81839-6) 0.470 0.350-4.940 [facility]ere[facility] or plasma creatine kinase measurement (enzymatic activity/volume)2020-01-17 13:22:00* Test Item Value Reference Range Interpretation Comments Creatine Kinase (test code = 2157-6) 17 29-168 [facility]ere[facility] or plasma creatine kinase MB measurement (mass/volume)2020-01-17 13:22:00* Test Item Value Reference Range Interpretation Comments Creatine Kinase MB (test code = 51644-8) 0.50 0-5.0 [facility] CampusTroponin I measurement by highly sensitive enzyme qdhzoyhpzzl3045-31-15 13:22:00* Test Item Value Reference Range Interpretation Comments Troponin I (test code = 44332-1) 0.009 0-0.300 [facility] CampusProthrombin time (PT) in platelet poor plasma by coagulation woyhx4762-96-44 06:20:00* Test Item Value Reference Range Interpretation Comments Prothrombin Time (test code = 5902-2) 18.3 11.9-14.5 [facility] CampusINR in Platelet poor plasma by Coagulation nngpn8185-58-92 06:20:00* Test Item Value Reference Range Interpretation Comments Prothromb Time International Ratio (test code = 6301-6) 1.44 Oral Anticoagulant Therapy INR Values:1. Low Intensity Therapy 1.5 - 2.02 . Moderate Intensity Therapy 2.0 - 3.03. High Intensity Therapy(1) 2.5 - 3. 54. High Intensity Therapy(2) 3.0 - 4.05. Panic Value INR > 5.0 [facility] CampusActivated partial thromboplastin time (aPTT) in platelet poor plasma by coagulation lkyqz9576-96-34 06:20:00* Test Item Value Reference Range Interpretation Comments Activated Partial Thromboplast Time (test code = 85450-8) 46.3 23.8-35.5 [facility] CampusFluoroscopic procedure less than one hour qcnigsvt2327-81-76 22:04:00* Test Item Value Reference Range Interpretation Comments Coronavirus (PCR) (test code = Coronavirus (PCR)) NOT DETECTED NOTD ETECTED SARS-CoV-2 PCRHologic Aptima SARS-CoV-2 assay is a nucleic amplification test in tended for the qualitative detection of RNA from SARS-CoV-2 from nasopharyngeal (COMMUNICATIONS MANAGER) specimens. It is used under Emergency Use Authorization (EUA) by FDA.A posi tive result is indicative of the presence of SARS-CoV-2 RNA. Clinical correlatio n with patient history and other diagnostic information is necessary to determin e patient infection status.A negative (Not Detected) result does not preclude SA RS-CoV-2 infection. Clinical Correlation with patient history and other diagnost ic information should be used in patient management decisions.Invalid: Unable to generate a valid result on this specimen. Please submit a new specimen for repr at testing oc clinically indicated.Tesing performed by:[facility] Services[address] [place] [address] [id number], Franklin vo MD, PhDCHI Northeast Baptist HospitalCT CHEST [id number] 21:02:00 [facility] [address] [address] Patient Name: CALVIN CARVER MR #: [id number] : 1945 Age/Sex: 74/F Req #: [id number] Adm Physician: Ordered by: FRANKLIN SPENCE MD Report #: [id number] Location: ER Room/Bed: Procedure: [id number] CT/CT CHEST W Exam Date: 01/16/20 Exam Time: 2014 REPORT STATUS: Signed EXAM: CT Chest WITH con trast (PE Protocol) INDICATION: pe protocol COMPARISON: None TECHNIQUE : Chest was scanned utilizing a multidetector helical scanner from the lung ap ex through the level of the diaphragm after administration of IV contrast. Thi n section reconstructions were obtained with special concentration on the pu lmonary arteries. Coronal and sagittal reformations were obtained. Dose modula tion, iterative reconstruction, and/or weight based adjustment of the mA/kV wa s utilized to reduce the radiation dose to as low as reasonably achievable. Pu lmonary embolism protocol was performed. IV CONTRAST: 100 mL of Omnipaque 350 COMPLICATIONS: None RADIATION DOSE: Total DLP: 490.59 mGy *cm Estimated effective dose: (DLP x 0.014 x size factor) mSv CTDI vol has been reviewed. It is below the limits set by the Radiation Protocol Co mmittee ([facility]). FINDINGS: LINES/ TUBES: None. LUNGS AND AIRWAYS: T here are filling defects within the segmental branch of the right middle lobe (series 2, image 50) and subsegmental branch of right lower lobe (series 2, im age 73) compatible with pulmonary emboli. The lungs are unremarkable. Airway s are normal. PLEURA: The pleural spaces are clear. HEART AND MEDIASTI NUM: The left thyroid lobe is not well seen/atrophic. No mediastinal, hilar o r axillary lymphadenopathy. The heart is normal in size.. There is no pericar dial effusion. . Main pulmonary artery measures 2.5 cm in diameter and th e ascending aorta measures 3.4 cm. UPPER ABDOMEN: There is marked wall thic kening of the stomach could be due to gastritis. There are gallstones but no e vidence of cholecystitis. Hepatic steatosis. BONES: There are degenerativ e changes in the spine. SOFT TISSUES: Unremarkable. IMPRESSION: Pulmonary emboli in the segmental branch of the right mi ddle lobe and subsegmental branch of right lower lobe. No evidence of pulmonar y infarction or right-sided heart is strain. Cholelithiasis with no evide nce of cholecystitis. Moderate wall thickening of the stomach could be due to gastritis. Signed by: Nathaniel Cortes MD on 01/16/2020 9:11 PM Dictated By: NATHANIEL CORTES MD 10 Transcribed By: PAO on 01/16/202110 COPY TO: FRANKLIN MEIER MD CT ABDOMEN/PELVIS [id number] 16:11:[address] [address] Patient Name: CALVIN CARVER MR #: [id number] : 1945 Age/Sex: 74/F Req #: [id number] Adm Physician: Ordered by: ANA DOBSON MD Report #: [id number] Location: OR Room/Bed: Procedure: [id number] CT/CT ABDOMEN/PEL VIS W Exam Date: 01/14/20 Exam Time: 1500 REPORT STATUS: Signed EXAM: CT Abdomen and Pelvis WITH intravenous contrast INDICATION: Gastric ulcer, anemia COMPARISON: None. TECHNIQUE: Abdomen and pelvis were scanned utilizing a mu ltidetector helical scanner from the lung base to the pubic symphysis after ad ministration of IV contrast. Coronal and sagittal reformations were obtained. Routine protocol was performed. Scan was performed during portal venous phase. IV CONTRAST: 100mL of Isovue 370 ORAL CONTRAST: Water RADIATIO N DOSE: Total DLP: 439 mGy*cm Dose modulation, iterative reconstruction, and/or weight based adjustment of the mA/kV was utilized to reduce the radiat ion dose to as low as reasonably achievable. FINDINGS: LOWER THORAX: N ormal. HEPATOBILIARY: Severe diffuse hepatic steatosis. No focal liver lesi on. No biliary ductal dilation. Multiple gallstones in the gallbladder. No def inite CT evidence of cholecystitis. SPLEEN: No splenomegaly. PANCREA S: No focal masses or ductal dilatation. ADRENALS: No adrenal nodules. KI DNEYS/URETERS: 2 mm punctate left lower pole renal calculus. No hydronephrosis or hydroureter. Multiple right renal cysts measure up to 2.1 cm. PELVIC ORGAN S/BLADDER: Calcified uterine fibroids. PERITONEUM / RETROPERITONEUM: No jose e air or fluid. 6.5 cm anterior abdominal wall defect containing loops of larg e and small bowel. LYMPH NODES: No lymphadenopathy. VESSELS: Moderate athero sclerotic calcifications of the nonaneurysmal abdominal aorta and major branch es appear GI TRACT: 8.5 cm segment of masslike wall thickening involving th e ascending colon with associated intussusception of the terminal ileum. There is scattered foci of air within the thickened wall. Scattered diverticulosis without CT evidence of diverticulitis. Multiple loops of mildly dilated small bowel measure up to 3 cm with associated air-fluid levels, consistent with par tial obstruction. BONES AND SOFT TISSUES: Age-indeterminate compression f racture of L3. No additional fracture or dislocation. IMPRESSION: 8.5 cm segment of masslike wall thickening involving the ascending colon with asso ciated intussusception of the terminal ileum. Scattered foci of air within the thickened colonic wall. Per discussion with Dr. Dobson there was injection of a small amount of submucosal air during the recent colonoscopy so this air ma y be iatrogenic rather than reflective of necrosis. Mildly dilated loops of up stream small bowel measure up to 3.0cm with air-fluid levels, consistent with at least partial small bowel obstruction. Multiple gallstones in the gallbl adder without definite CT evidence of cholecystitis. Severe diffuse hepat ic steatosis. No focal liver lesion. Age-indeterminate L3 compression fract ure. The above findings were discussed with Dr. Dobson on 01/14/2020 4:11 PM , who responded indicating that the communication was understood. Signed by: Nelly Epps MD on 01/14/2020 4:34 PM Dictated By: NELLY EPPS MD Elec tronically Signed By: NELLY EPPS MD on 01/14/20 1632 Transcribed By: PAO on 01/14/20 1636 COPY TO: ANA DOBSON MD
--- OUTSIDE RECORDS SUMMARY | 2020-02-21 18:39 | XMS REPORT | Continuity of Care Document ---
Author Author [facility] t Organization [facility] Address [address] [place] [address] Phone Unavailable Care Team Providers Care Audio Installer Name Role Phone MD Rimma GUADALUPE PCP DOBSON, SOUHEIL Attphys Unavailable DOBSON, ANA Attphys Unavailable DOBSON, SOUHEIL Admphys Unavailable Payers Payer Name Policy Type Policy Number Effective Date [facility]piration Date [facility] [id number] 2019 00:00 :00 [facility] Medicare A & B [id number] 2010 00:00:00 [facility] Problems Condition Name Condition Details Condition Category Status Onset Date Resolution Date Last Treatment Date Treating Clinician Comments Source Deep vein thrombosis (DVT) Problem Active [facility] Pulmonary embolism Problem Active [facility] Mass of colon Problem Active [facility] Allergies, Adverse Reactions, Alerts This patient has no known allergies or adverse reactions. Social History Social Habit Start Date Stop Date Quantity Comments Source Sex Assigned At 1945 00:00:00 1945 00[birth year]:00 Female [facility] Medications Ordered Medication Name Filled Medication Name Start Date Stop Da te Current Medication? Ordering Clinician Indication Dosage Frequency Signature (SIG) Comments Components Source Acetaminophen Acetaminophen Yes 325 Every 6 Hours as needed for Elevated Temperature [facility] Apixaban (Eliquis) 5 Mg TABLET Apixaban (Eliquis) 5 Mg TABLET Yes 5 Twice A Day [facility] Aspirin (Aspirin Ec) 81 Mg TABLET.DR Aspirin (Aspirin Ec) 81 Mg TAB LET.DR Yes 81 Daily [facility] Cyanocobalamin (Vitamin B-12) 1,000 Mcg TAB Cyanocobal pierce (Vitamin B-12) 1,000 Mcg TAB Yes 500 Daily [facility] Ferrous Sulfate Ferrous Sulfate Yes 325 Twice A Day [facility] Latanoprost Latanoprost Yes 2.5 Bedtime [facility] Metoprolol Tartrate Metoprolol Tartrate Yes 50 Every 12 Hours [facility] Pantoprazole Sodium Pantoprazole Sodium Yes 40 Daily [facility] Solifenacin Succinate (Vesicare) 5 Mg TABLET Solifenac in Succinate (Vesicare) 5 Mg TABLET Yes 5 Daily [facility] Trazodone Hcl Trazodone Hcl Yes 25 Bedtime [facility] Vitamin D Vitamin D Yes 2000 Daily [facility] Clonidine Hcl Clonidine Hcl 2020-01-19 00:00:00 No 1 As Needed [facility] Insulin Aspart (Novolog) 100 Unit/1 Ml CARTRIDGE Insul in Aspart (Novolog) 100 Unit/1 Ml CARTRIDGE 2020-01-19 00:00:00 No 0 Twic e A Day [facility] Linagliptin (Tradjenta) 5 Mg TABLET Linagliptin (Tradjenta) 5 Mg TABLET 2020-01-19 00:00:00 No 5 Daily [facility] Nitroglycerin (Nitroglycerin Patch) 1 Each PATCH.TD24 Nitroglycerin (Nitroglycerin Patch) 1 Each PATCH.TD24 2020-01-19 00:00:00 No 1 Daily [facility] Bisacodyl Bisacodyl 2020-01-16 00:00:00 No 20 Daily [facility] Cyanocobalamin (Vitamin B-12) 1,000 Mcg TAB Cyanocobal pierce (Vitamin B-12) 1,000 Mcg TAB 2020-01-16 00:00:00 No 500 Daily [facility] Insulin Aspart (Novolog) 100 Unit/1 Ml CARTRIDGE Insul in Aspart (Novolog) 100 Unit/1 Ml CARTRIDGE 2020-01-16 00:00:00 No 5 Twic e A Day [facility] Linagliptin (Tradjenta) 5 Mg TABLET Linagliptin (Tradjenta) 5 Mg TABLET 2020-01-16 00:00:00 No 5 Bedtime [facility] Magnesium Citrate Magnesium Citrate 2020-01-16 00:00:00 No 10 Bedtime [facility] Solifenacin Succinate (Vesicare) 5 Mg TABLET Solifenac in Succinate (Vesicare) 5 Mg TABLET 2020-01-16 00:00:00 No 5 Daily [facility] Timolol (Betimol) 5 Ml DROPS Timolol (Betimol) 5 Ml DROPS 2020-01-16 00:00:00 No 1 Bedtime [facility] Vital Signs Vital Name Observation Time Observation Value Comments Source Body Temperature 2020-01-19 15:31:00 97.2 [degF] [facility] BMI (Body Mass Index) 2020-01-16 22:40:00 29.3 kg/m2 [facility] Weight 2020-01-16 18:26:00 150 [lb_av] [facility] Procedures Procedure Date / Time Performed Performing Clinician [facility] e Computed tomography of chest with contrast 2020-01-16 00:00:00 [facility] Computed tomography of abdomen and pelvis with contrast 00:00:00 [facility] Plan of Care Planned Activity Planned Date Details Comments Source Instructions Deep Vein Thrombosis [facility] Instructions [facility] Start Date/Time End Date/Time Encounter Type Admission Type Attendi [facility] Care Facility Care Department Encounter ID Source 2020-01-16 21:28:00 2020-01-19 18:02:00 Discharged Inpatient 1 SHAHRAM DOBSON [facility] [id number] [facility] 2020-01-14 11:45:00 2020-01-14 11:45:00 Registered Surgical Day Car e 3 DOBSON, ANA [facility] [id number] [facility] Results Test Description Test Time Test Comments Results Result Comments Source CHEST SINGLE (PORTABLE) 2020-02-21 08:36:00 [facility] : 1945 Sex: [place] [address] Patient Name: CALVIN CARVER MR #: [id number] : 1945 Age/Sex: 74/F Req #: [id number] [facility] Physician: SHAHRAM DOBSON MD Ordered by: DELVIN JOLLEY MD Report #: [id number] Location: MED/SURG3 Room/Bed: [facility] Procedure: [id number] DX/CHEST SINGLE (PORTABLE) Exam Date: 02/21/20 Exam [...] MD CHEST SINGLE (PORTABLE) 2020-02-20 10:36:00 [facility] : 1945 Sex: F [place] [address] Patient Name: CALVIN CARVER MR #: [id number] : 1945 Age/Sex: 74/F Req #: [id number] Adm Physician: SHAHRAM DOBSON MD Ordered by: DELVIN JOLLEY MD Report #: [id number] Location: ICU Room/Bed: ICU 194 Procedure: [id number] DX/CHEST SINGLE (PORTABLE) Exam Date: 02/20/20 Exam [...] JOLLEY MD IR CONSULT 2020-02-19 10:33:00 [facility] : 1945 Sex: [place] [address] Patient Name: CALVIN CARVER MR #: [id number] : 1945 Age/Sex: 74/F Req #: [id number] Adm Physician: SHAHRAM DOBSON MD Ordered by: DELVIN JOLLEY MD Report #: [id number] Location: ICU Room/Bed: ICU 194-1 Procedure: [id number] DX/IR CONSULT Exam Date: Exam Time: REPORT STATUS: Signed OR Fluoroscopy: IMPRESSION: Fluoroscopy service provided in the OR. Interpretation not requested. Signed by: Gareth Childers MD on 02/19/2020 10:34 AM Dictated By: GARETH CHILDERS MD 33 Transcribed By: PAO on 02/19/201033 COPY TO: DELVIN JOLLEY MD CHEST XRAY LINE PLACEMENT 2020-02-18 22:06:00 [facility] : 1945 Sex: [place] [address] Patient Name: CALVIN CARVER MR #: [id number] : 1945 Age/Sex: 74/F Req #: [id number] Adm Physician: SHAHRAM DOBSON MD Ordered by: ADÁN CEE MD Report #: [id number] Location: ICU Room/Bed: ICU 194-1 Procedure: [id number] DX/CHEST XRAY LINE PLACEMENT Exam Date: 02/18/20 [...] moderate bilateral pleural effusions. Signed by: Dr. Eveloi Del Valle MD on 02/18/2020 10:08 PM Dictated By: EVELIO DEL VALLE MD 07 Transcribed By: PAO on 02/18/202207 COPY TO: ADÁN CEE MD CT ABDOMEN/PELVIS W 2020-02-18 15:20:00 [facility] CALVIN CARVER : 1945 Sex: F [facility] [address] [address] Patient Name: CALVIN CARVER MR #: [id number] : 1945 Age/Sex: 74/F Req #: [id number] Adm Physician: SHAHRAM DOBSON MD Ordered by: BARBI HUBBARD DO Report #: [id number] Location: ICU Room/Bed: ICU [facility] Procedure: [id number] CT/CT ABDOMEN/PELVIS W Exam Date: 02/18/20 Exam [...] DO CT CHEST W 2020-02-18 15:13:00 [facility] CALVIN CARVER : 1945 Sex: F [place] [address] Patient Name: CALVIN CARVER MR #: [id number] : 1945 Age/Sex: 74/F Req #: [id number] Adm Physician: SHAHRAM DOBSON MD Ordered by: BARBI HUBBARD DO Report #: [id number] Location: ICU Room/Bed: ICU [facility] Procedure: [id number] CT/CT CHEST W Exam Date: 02/18/20 Exam [...] 3:17 PM Dictated By: NELLY EPPS MD [id number] Transcribed By: PAO on 02/18/20 9887 COPY TO: BARBI HUBBARD, DO CT BRAIN WO 2020-02-18 14:50:00 [facility] CALVIN CAR[facility] : 1945 Sex: F [place] [address] Patient Name: CALVIN CARVER MR #: [id number] : 1945 Age/Sex: 74/F Req #: [id number] Adm Physician: SHAHRAM DOBSON MD Ordered by: BARBI HUBBARD DO Report #: [id number] Location: ICU Room/Bed: ICU [facility] Procedure: [id number] CT/CT BRAIN WO Exam Date: Exam Time: [...] DO CHEST SINGLE (PORTABLE) 2020-02-18 10:22:00 [facility] : 1945 Sex: [place] [address] Patient Name: CALVIN CARVER MR #: [id number] : 1945 Age/Sex: 74/F Req #: [id number] Adm Physician: SHAHRAM DOBSON MD Ordered by: DELVIN JOLLEY MD Report #: [id number] Location: ICU Room/Bed: ICU 1941 Procedure: [id number] DX/CHEST SINGLE (PORTABLE) Exam Date: 02/18/20 Exam [...] Test Item Bedside Glucose (test code = 53662-6) 137 70-120 Meter ID: [id number] [id number] 12:54:00 [facility] [address] [place] [address] Patient Name : CALVIN CARVER MR #: [id number] : 1945 Age/Sex: 74/F Adm Physician : SHAHRAM DOBSON MD Admit Date : 01/16/20 Location : MED/SURG3 Room/Bed : 295 REPORT: Myoview St ress Test DATE OF STUDY: 01/17/2020 10:03:00 Stress Test - Treadmill O NLY This is associated with dictation ID #[id number]. 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 3 . Overall, this stress test shows no areas of ischemia, but rather an area of moderate-sized fixed and decreased uptake in the inferior wall compatible with a n old DE. MD JORDY Dc/JAD /[id number] Signature Date Dictated By: DIDIER BOLTON MD Transcribed By: JAD on 01/18/20 <Electronically signed by DIDIER DOS SANTOS MD><<Signature on File>>01/18/20 0364 COPY TO: Blood leukocytes automated count (number/volume)2020-01-18 06:15:00* Test Item Value Reference Range Interpretation Comments White Blood Count (test code = 6690-2) 8.53 4.8-10.8 [facility] count (number/volume)2020-01-18 06:15:00* Test Item Value Reference Range Interpretation Comments Red Blood Count (test code = 789-8) 3.60 3.6-5.1 [facility] hemoglobin measurement (moles/volume)2020-01-18 06:15:00* Test Item Value Reference Range Interpretation Comments Hemoglobin (test code = 31982-0) 10.7 12.0-16.0 [facility] blood hematocrit (volume fraction)2020-01-18 06:15:00* Test Item Value Reference Range Interpretation Comments Hematocrit (test code = 4544-3) 34.1 34.2-44.1 [facility] Alice[facility] erythrocyte mean corpuscular cyytvm8365-01-31 06:15:00* Test Item Value Reference Range Interpretation Comments Mean Corpuscular Volume (test code = 787-2) 94.7 81-99 [facility] eryth[facility] mean corpuscular hemoglobin (mass per erythrocyte)2020-01-18 06:15:00* Test Item Value Reference Range Interpretation Comments Mean Corpuscular Hemoglobin (test code = 785-6) 29.7 28-32 [facility] Alice[facility] erythrocyte mean corpuscular hemoglobin concentration measurement (mass/volume)2020-01-18 06:15:00* Test Item Value Reference Range Interpretation Comments Mean Corpuscular Hemoglobin Concent (test code = 786-4) 31.4 31-35 [facility] AliceRDW PpuVd-Vbs2967-92-02 06:15:00* Test Item Value Reference Range Interpretation Comments Red Cell Distribution Width (test code = 28206-5) 15.0 11.7 -14.4 [facility]Aut[facility] platelet count (count/volume)2020-01-18 06:15:00* Test Item Value Reference Range Interpretation Comments Platelet Count (test code = 777-3) 274 140-360 [facility] neutrophil count as percentage of total qlfdpriglh9774-63-96 06:15:00* Test Item Value Reference Range Interpretation Comments Neutrophils (%) (Auto) (test code = 22225-7) 75.8 38.7-80.0 [facility] lymphocyte count as percentage ot total wjulaoaaru1990-91-58 06:15:00* Test Item Value Reference Range Interpretation Comments Lymphocytes (%) (Auto) (test code = 736-9) 14.0 18.0-39.1 [facility] Alice[facility] blood monocyte count as percentage of total uabwokmeci0193-49-18 06:15:00* Test Item Value Reference Range Interpretation Comments Monocytes (%) (Auto) (test code = 5905-5) 8.6 4.4-11.3 [facility] Alice[facility] blood eosinophil count as percentage of total hwpmocslwy3328-64-19 06:15:00* Test Item Value Reference Range Interpretation Comments Eosinophils (%) (Auto) (test code = 713-8) 0.6 0.0-6.0 [facility] blood basophil count as percentage of total zqyfchwrtw3115-74-50 06:15:00* Test Item Value Reference Range Interpretation Comments Basophils (%) (Auto) (test code = 706-2) 0.5 0.0-1.0 [facility] AliceFluoroscopic procedure less than one hour ofbluwuu7573-39-56 06:15:00* Test Item Value Reference Range Interpretation Comments IM GRANULOCYTES % (test code = IM GRANULOCYTES %) 0.5 0.0- 1.0 [facility] Alice[facility] blood neutrophil count 2020-01-18 06:15:00* Test Item Value Reference Range Interpretation Comments Neutrophils # (Auto) (test code = 751-8) 6.5 2.1-6.9 [facility] lymphocytes count (number/volume) 2020-01-18 06:15:00* Test Item Value Reference Range Interpretation Comments Lymphocytes # (Auto) (test code = 09701-9) 1.2 1.0-3.2 [facility] monocytes automated count (number/volume)2020-01-18 06:15:00* Test Item Value Reference Range Interpretation Comments Monocytes # (Auto) (test code = 742-7) 0.7 0.2-0.8 [facility] Alice[facility] blood eosinophil count 2020-01-18 06:15:00* Test Item Value Reference Range Interpretation Comments Eosinophils # (Auto) (test code = 711-2) 0.1 0.0-0.4 [facility] Alice[facility] blood basophil count (count/volume)2020-01-18 06:15:00* Test Item Value Reference Range Interpretation Comments Basophils # (Auto) (test code = 704-7) 0.0 0.0-0.1 [facility] AliceFluoroscopic procedure less than one hour rjwatlhy4312-38-06 06:15:00* Test Item Value Reference Range Interpretation Comments Absolute Immature Granulocyte (auto (khurram t code = Absolute Immature Granulocyte (auto) 0.04 0-0.1 [facility] sodium measurement (moles/volume)2020-01-18 06:15:00* Test Item Value Reference Range Interpretation Comments Sodium Level (test code = 2951-2) 138 136-145 [facility] plasma potassium measurement (moles/volume)2020-01-18 06:15:00* Test Item Value Reference Range Interpretation Comments Potassium Level (test code = 2823-3) 3.7 3.5-5.1 [facility] plasma chloride measurement (moles/volume)2020-01-18 06:15:00* Test Item Value Reference Range Interpretation Comments Chloride Level (test code = 2075-0) 107 98-107 [facility] plasma carbon dioxide, total measurement (moles/volume)2020-01-18 06:15:00* Test Item Value Reference Range Interpretation Comments Carbon Dioxide Level (test code = 2028-9) 23 22-29 [facility] plasma anion dsu2849-66-87 06:15:00* Test Item Value Reference Range Interpretation Comments Anion Gap (test code = 62888-4) 11.7 8-16 [facility] plasma urea nitrogen measurement (mass/volume)2020-01-18 06:15:00* Test Item Value Reference Range Interpretation Comments Blood Urea Nitrogen (test code = 3094-0) 16 7-26 [facility] plasma creatinine measurement (mass/volume)2020-01-18 06:15:00* Test Item Value Reference Range Interpretation Comments Creatinine (test code = 2160-0) 0.72 0.57-1.11 [facility] plasma urea nitrogen/creatinine mass itvos6218-45-86 06:15:00* Test Item Value Reference Range Interpretation Comments BUN/Creatinine Ratio (test code = 3097-3) 22 6-25 [facility] AliceEstimated glomerular filtration rate (GFR) fnksybpzxaztl4445-82-50 06:15:00* Test Item Value Reference Range Interpretation Comments Estimat Glomerular Filtration Rate (test code = 083058977) > 60 >60 Ranges were taken from the National Kidney Disease Education Program and the [facility]ney Foundation literature.Reference ranges:60 or greater: Sziper94-57 ( for 3 consecutive months): Chronic kidney disease 15 or less: Kidney failureCHRISTUS Spohn Hospital AliceGlucose kvejmwubqkc4766-29-28 06:15:00* Test Item Value Reference Range Interpretation Comments Glucose Level (test code = OQF1119) 93 74-118 [facility] or plasma calcium measurement (mass/volume)2020-01-18 06:15:00* Test Item Value Reference Range Interpretation Comments Calcium Level (test code = 36873-2) 7.1 8.4-10.2 [facility] plasma total bilirubin measurement (mass/volume)2020-01-18 06:15:00* Test Item Value Reference Range Interpretation Comments Total Bilirubin (test code = 1975-2) 0.5 0.2-1.2 [facility] AliceFluoroscopic procedure less than one hour yfpugzxa7019-58-99 06:15:00* Test Item Value Reference Range Interpretation Comments Aspartate Amino Transf (AST/SGOT) (test code = Aspartate Amino Transf (AST/SGOT)) 14 5-34 [facility] or plasma alanine aminotransferase measurement (enzymatic activity/volume)2020-01-18 06:15:00* Test Item Value Reference Range Interpretation Comments Alanine Aminotransferase (ALT/SGPT) (test code = 1742-6) 9 0-55 [facility] protein measurement (mass/volume)2020-01-18 06:15:00* Test Item Value Reference Range Interpretation Comments Total Protein (test code = 2885-2) 4.3 6.5-8.1 [facility] plasma albumin measurement (mass/volume)2020-01-18 06:15:00* Test Item Value Reference Range Interpretation Comments Albumin (test code = 1751-7) 2.1 3.5-5.0 [facility] AlicePlasma globulin measurement (mass/volume) 2020-01-18 06:15:00* Test Item Value Reference Range Interpretation Comments Globulin (test code = 49413-9) 2.2 2.3-3.5 [facility] albumin/globulin mass kieac6842-78-38 06:15:00* Test Item Value Reference Range Interpretation Comments Albumin/Globulin Ratio (test code = 1759-0) 1.0 0.8-2.0 [facility] plasma alkaline phosphatase measurement (enzymatic activity/volume)2020-01-18 06:15:00* Test Item Value Reference Range Interpretation Comments Alkaline Phosphatase (test code = 6768-6) 62 40-150 [facility] or plasma thyrotropin measurement by detection limit <= 0.005 miu/l (units/volume)2020-01-18 06:15:00* Test Item Value Reference Range Interpretation Comments Thyroid Stimulating Hormone (TSH) (test code = 57474-6) 0.470 0.350-4.940 [facility] plasma creatine kinase measurement (enzymatic activity/volume)2020-01-17 13:22:00* Test Item Value Reference Range Interpretation Comments Creatine Kinase (test code = 2157-6) 17 29-168 [facility] plasma creatine kinase MB measurement (mass/volume)2020-01-17 13:22:00* Test Item Value Reference Range Interpretation Comments Creatine Kinase MB (test code = 48550-7) 0.50 0-5.0 [facility] AliceTroponin I measurement by highly sensitive enzyme rvkrufqqcoh0202-38-98 13:22:00* Test Item Value Reference Range Interpretation Comments Troponin I (test code = 60722-5) 0.009 0-0.300 [facility] AliceProthrombin time (PT) in platelet poor plasma by coagulation gpadp3383-32-29 06:20:00* Test Item Value Reference Range Interpretation Comments Prothrombin Time (test code = 5902-2) 18.3 11.9-14.5 [facility] AliceINR in Platelet poor plasma by Coagulation qoaqk7116-25-09 06:20:00* Test Item Value Reference Range Interpretation Comments Prothromb Time International Ratio (test code = 6301-6) 1.44 Oral Anticoagulant Therapy INR Values:1. Low Intensity Therapy 1.5 - 2.02 . Moderate Intensity Therapy 2.0 - 3.03. High Intensity Therapy(1) 2.5 - 3. 54. High Intensity Therapy(2) 3.0 - 4.05. Panic Value INR > 5.0 [facility] AliceActivated partial thromboplastin time (aPTT) in platelet poor plasma by coagulation fbngh5211-57-11 06:20:00* Test Item Value Reference Range Interpretation Comments Activated Partial Thromboplast Time (test code = 01683-2) 46.3 23.8-35.5 [facility] AliceFluoroscopic procedure less than one hour qeyiixgg6169-75-90 22:04:00* Test Item Value Reference Range Interpretation Comments Coronavirus (PCR) (test code = Coronavirus (PCR)) NOT DETECTED NOTD ETECTED SARS-CoV-2 PCRHologic Aptima SARS-CoV-2 assay is a nucleic amplification test in tended for the qualitative detection of RNA from SARS-CoV-2 from nasopharyngeal (PETAL SHAPER HAND) specimens. It is used under Emergency Use [...] repr at testing oc clinically indicated.Tesing performed by:[facility] Laboratory Services[address] [place] [address] [id number], Franklin vo MD, PhDCHI [facility] HospitalCT CHEST Y6601-62-41 21:02:00 [facility] [address] [address] Patient Name: CALVIN CARVER MR #: [id number] : 1945 Age/Sex: 74/F Req #: [id number] Adm Physician: Ordered by: FRANKLIN SPENCE MD Report #: [id number] Location: ER Room/Bed: Procedure: [id number] CT/CT CHEST W Exam Date: 01/16/20 Exam [...] set by the Radiation Protocol Co mmittee ([facility]). FINDINGS: LINES/ TUBES: None. LUNGS AND AIRWAYS: [...] COPY TO: FRANKLIN MEIER MD CT ABDOMEN/PELVIS M6335-54-67 16:11:00 [place] [address] Patient Name: CALVIN CARVER MR #: [id number] : 1945 Age/Sex: 74/F Req #: [id number] Adm Physician: Ordered by: ANA DOBSON MD Report #: [id number] Location: OR Room/Bed: Procedure: [id number] CT/CT ABDOMEN/PEL VIS W Exam Date: 01/14/20 [...] Signed By: NELLY EPPS MD on 01/14/20 163 Transcribed By: PAO on 01/14/20 1633 COPY TO: ANA DOBSON MD
[2020-02-21] MEDS: CENTRAL TPN FORMULA 1 BAG IV SCH (20:00)
[2020-02-22] VITALS (9 sets, daily range): BP systolic 110–143; BP diastolic 62–114
[2020-02-22] MEDS ORDERED: DEXTROSE 10% 1,000 ML IV SCH ×2 (02:00)
[2020-02-22] MEDS: SODIUM CHLORIDE 0.9% 1000ML 1,000 ML IV SCH (03:04)
[2020-02-22] MEDS: MEROPENEM 500MG/ NS 50ML 50 ML IV SCH ×3 (05:35→21:48)
[2020-02-22] MEDS: METRONIDAZOLE 500MG/NS 100ML 100 ML IV SCH (05:35)
[2020-02-22] MEDS: INSULIN LISPRO 100 UNIT/1 ML 3ML VIAL SQ SCH ×4 (06:36→18:00)
[2020-02-22 07:00] LABS: BASOPHILS # (AUTO) 0.1 (0.0-0.1); BASOPHILS % 0.4 % (0.0-1.0); EOSINOPHILS # (AUTO) 0.1 (0.0-0.4); HEMATOCRIT 29.7 % (34.2-44.1); HEMOGLOBIN 9.5 g/dL (12.0-16.0); LYMPHOCYTES % 7.6 % (18.0-39.1); MEAN CORPUSCULAR VOLUME 97.1 fL (81-99); MONOCYTES # (AUTO) 0.6 (0.2-0.8); MONOCYTES % 4.3 % (4.4-11.3); NEUTROPHILS # (AUTO) 11.7 (2.1-6.9); NEUTROPHILS % 86.2 % (38.7-80.0); PLATELET COUNT 128 x10e3/uL (140-360); RED BLOOD COUNT 3.06 x10e6/uL (3.6-5.1); RED CELL DISTRIBUTION WIDTH 20.6 % (11.7-14.4)
[2020-02-22 07:28] LABS: ANION GAP 7.3 mmol/L (8-16); BLOOD UREA NITROGEN 7 mg/dL (7-26); BUN/CREATININE RATIO 12 (6-25); CALCIUM 7.1 mg/dL (8.4-10.2); CARBON DIOXIDE 19 mmol/L (22-29); CHLORIDE 114 mmol/L (98-107); CREATININE, SERUM 0.58 mg/dL (0.57-1.11); EST GLOMERULAR FILTRATION RATE > 60 ML/MIN (60-); GLUCOSE 182 mg/dL (74-118); POTASSIUM 3.3 mmol/L (3.5-5.1); SODIUM 137 mmol/L (136-145)
[2020-02-22] MEDS: PANTOPRAZOLE SOD 40 MG TABEC PO SCH (08:12)
--- NOTE | 2020-02-22 16:16 | NUR ---
WOUND CARE SCREENING CONSULT FOR 74 YO FEMALE ADMITTED TO [facility] WITH A PRESENT HX OF ACUTE RESP DISTRESS. ALTHEA 12 ON STRICT PUP STATUS AND INTERVENTIONS SURFACE: LOW AIR LOSS MATTRESS LABS: WBC- 13.6 HGB- 9.5 GLUCOSE-182 MICRO: URINE CULTURE- E-COLI ESBL. BLOOD CULTURE- NO GROWTH IMAGING: SKIN ASSESSMENT COMPLETE, PATIENT PRESENTS WITH 1)BLISTER FILLED WITH SEROUS FLUID TO LEFT MEDIAL THIGH MEASURING 0.3CM X 5 CM 2)BLANCHABLE REDNESS PRESENT TO SACRUM; MEASURING 6CM X 7 CM. 3)BLANCHABLE REDNESS PRESENT TO LEFT AND RIGHT POSTERIOR HEEL. 4)MULTIPLE HEALING SKIN TEARS SECURED WITH STERI STRIPS TO BILATERAL UPPER ARMS; SEROUS DRAINAGE PRESENT. 5)WEEPING EDEMA PRESENT WITH SEROUS DRAINAGE PRESENT TO BILATERAL ARMS AND HANDS. 6)HEALING SKIN TEAR TO RIGHT LATERAL KNEE; MEASURING 5 CM X 0.3CMX 0.1 CM; SEROUS DRAINAGE PRESENT. 100% PINK GRANULATION. NO S/S OF INFECTION NOTED. RECOMMENDATIONS: NURSING TO CLEAN BLISTER WITH NORMAL SALINE, PAT DRY WITH 4X4 GAUZE, PAINT WITH BETADINE AND LEAVE OPEN TO AIR. NURSING TO CLEAN BLANCHABLE REDNESS TO SACRUM, LEFT AND RIGHT POSTERIOR HEEL WITH NORMAL SALINE, PAT DRY, APPLY VENELEX AND COVER WITH ALLEVYN FOAM DAILY. NURSING TO CLEAN MULTIPLE HEALING SKIN TEARS TO BILATERAL UPPER AND LOWER EXTREMITIES WITH NORMAL SALINE, PAT DRY WITH 4X4 GAUZE, APPLY XEROFORM TO PARTIAL OPEN AREAS, APPLY MAXORB AG, COVER WITH DRAWTEX, 4X4 GAUZE, ABD PADS, LIGHTLY WRAP WITH KERLIX AND SECURE WITH PAPER TAPE DAILY AND NEEDED. NURSING TO REMOVE ID BANDS TO LUE AND TO APPLY LOOSELY FITTED ID BANDS TO AVOID FRICTION OF THE SKIN. NURSING TO MONITOR BILATERAL BUTTOCK AND SACRAL AREA DAILY. NURSING TO CONTINUE TO MONITOR PATIENT AND KEEP SKIN CLEAN AND FREE FROM STOOL OR IRRITATING MOISTURE AND CONTINUE TO FOLLOW STRICT PUP INTERVENTIONS DAILY. NURSING TO CONTINUE REPOSITION PT SIDE TO SIDE EVERY TWO HOURS AND NEEDED. NURSING TO APPLY LOW AIR LOSS MATTRESS. NURSING TO CONTINUE TO OFFLOAD FEET AND HEELS AT ALL TIMES WITH PILLOW SUSPENSION WHEN IN BED. NURSING TO APPLY BILATERAL HEEL PROTECTORS DAILY. NURSING TO CONTINUE TO ASSIST WITH PT NUTRITIONAL SUPPLEMENTS TO ENSURE PROPER REQUIREMENTS FOR HEALING. NURSING TO RE- CONSULT WOUND CARE NEEDED. Addendum: 02/22/20 at 1621 by Keysha Navarrete RN Amended: Links added.
[2020-02-22] MEDS: CENTRAL TPN FORMULA 1 BAG IV SCH (20:00)
[2020-02-23] VITALS (7 sets, daily range): BP systolic 113–130; BP diastolic 71–102
[2020-02-23] MEDS: INSULIN LISPRO 100 UNIT/1 ML 3ML VIAL SQ SCH ×5 (06:00→23:54)
[2020-02-23] MEDS: MEROPENEM 500MG/ NS 50ML 50 ML IV SCH ×3 (06:01→21:51)
[2020-02-23 06:13] LABS: BASOPHILS # (AUTO) 0.1 (0.0-0.1); BASOPHILS % 0.5 % (0.0-1.0); EOSINOPHILS # (AUTO) 0.2 (0.0-0.4); EOSINOPHILS % 1.2 % (0.0-6.0); HEMATOCRIT 28.6 % (34.2-44.1); LYMPHOCYTES # (AUTO) 0.9 (1.0-3.2); LYMPHOCYTES % 7.4 % (18.0-39.1); MEAN CORPUSCULAR HEMOGLOBIN 30.1 pg (28-32); MEAN CORPUSCULAR HGB CONC 31.5 g/dL (31-35); MEAN CORPUSCULAR VOLUME 95.7 fL (81-99); MONOCYTES # (AUTO) 0.5 (0.2-0.8); MONOCYTES % 4.2 % (4.4-11.3); PLATELET COUNT 124 x10e3/uL (140-360); RED BLOOD COUNT 2.99 x10e6/uL (3.6-5.1); RED CELL DISTRIBUTION WIDTH 20.4 % (11.7-14.4)
[2020-02-23 06:40] LABS: ALANINE AMINOTRANSFERASE 9 IU/L (0-55); ALBUMIN 1.5 g/dL (3.5-5.0); ALBUMIN/GLOBULIN RATIO 0.7 (0.8-2.0); ALKALINE PHOSPHATASE 116 IU/L (40-150); BLOOD UREA NITROGEN 6 mg/dL (7-26); BUN/CREATININE RATIO 11 (6-25); CALCIUM 7.2 mg/dL (8.4-10.2); CARBON DIOXIDE 20 mmol/L (22-29); CHLORIDE 115 mmol/L (98-107); CREATININE, SERUM 0.53 mg/dL (0.57-1.11); EST GLOMERULAR FILTRATION RATE > 60 ML/MIN (60-); GLUCOSE 135 mg/dL (74-118); POTASSIUM 3.5 mmol/L (3.5-5.1); SODIUM 137 mmol/L (136-145)
[2020-02-23 06:45] LABS: ANION GAP 5.5 mmol/L (8-16)
[2020-02-23] MEDS: PANTOPRAZOLE SOD 40 MG TABEC PO SCH (08:02)
[2020-02-23] MEDS: BALSAM PERU/CASTOR OIL 60 GM OINT...G. TP SCH (10:05)
[2020-02-23] MEDS ORDERED: FUROSEMIDE INJ 10 MG/ML 2 ML VIAL IV ONE (12:30)
--- NOTE | 2020-02-23 12:40 | NUR ---
Nutrition Intervention Note RD Recommendation(s) for Physician: -Continue TPN @ goal rate of 65 mL/hr and 25 gm/day lipids (provides 1332 kcal and 78 g protein) -Recommend to advance diet when medically appropriate The patient meets criteria for unspecified SEVERE protein-calorie malnutrition. Plan of Care: RD following, monitoring for tolerance and adequacy, TPN recommendation Nutrition reason for involvement: follow up RD Assessment 02/23/20: Follow up. Chart reviewed. Pt is not consuming much of liquid diet and remains on TPN. TPN is at 65 mL/hr. Current recommendations remain appropriate. Will continue to monitor. (02/20/20) Pt is a 74 year old female admitted with acute respiratory distress. Pt originally came to the hospital to have a colon resection due to colon cancer, but pt was lethargic and poorly responsive. Pt is currently on a clear liquid diet. Pt is tolerating liquid diet per RN. TPN was started yesterday at 43 mL/hr. Pt reports a decreased appetite and PO intake for the past month. Pt was unsure of any weight changes or her usual weight. Per weight history, pt weighed 150 lbs in December 2019; therefore, no weight loss is evident since December. No N/V or chewing/swallowing issues reported. Pt also is edematous per chart. Recommendations provided. Will continue to monitor. Principal Problems/Diagnoses: acute respiratory distress PMH: Hypertension, essential, Type 2 diabetes with complications, History of DVT, status post IVC filter, Colon cancer in need for resection, History of stroke with residual left-sided hemiparesis and poor functional state. I/O: GI: soft/non-tender abdomen Skin: last recorded BM 02/22 Labs: (02/22) Na 137, K 3.5, BUN 6, Cr 0.53, Glu 135, Ca 7.2 (02/19) Na 139, K 3.2, BUN 10, Cr 0.73, Glu 131, Ca 7.0, Phos 2.1 Meds: antibiotic, protonix, insulin, TPN @ 65 mL/hr Ht: 60 in Wt: 152.25 lbs BMI: 29.7 kg/m2 IBW: 100 lbs Malnutrition Evaluation (02/20/20) The patient meets criteria for unspecified SEVERE protein-calorie malnutrition. Energy intake: <75% of estimated energy requirements for 1 month Weight loss: No weight loss is evident since December 2019 per weight history in chart Fat loss: no loss identified per observation Muscle loss: no loss identified per observation Supporting Evidence: Fluid accumulation: moderate-severe (+3 edema right arm, 1 to +2 edema in left arm, +2 to +3 pitting edema to bilateral mid shins) per MD note 02/17 Functional Status: not assessed Nutrition Prescription (Diet Order): clear liquids, TPN @ 65 mL/hr with 25 gm/day lipids (provides 1332 kcal and 78 g protein) Estimated Nutritional Needs: 1191-8728 calories/day (18-20 kcal/kg CBW) 69-104 g protein/day (1.0-1.5 g pro/kg CBW) Diet Adequacy: TPN is meeting pts calorie and protein needs Tolerance: poor intake per documentation Diet Education Needs Assessment:. Diet education not indicated, patient on temporary/transition diet. Nutrition Care Level: high Nutrition Diagnosis: Severe protein calorie malnutrition related to chronic illness as evidenced by pt meeting <75% of estimated energy needs for 1 month and moderate to severe fluid accumulation. Goal: Patient will meet 75-100% of estimated needs by follow up Progress: goal met Interventions: - Composition, Rate, Route Monitoring/Evaluation: -Total energy intake, Total protein intake, Formula/Solution, Weight change Signed: Jodi Wilde RD, LD
--- NOTE | 2020-02-23 14:03 | Progress Note ---
DATE: SUBJECTIVE: The patient is breathing well. No distress. TPN has been started. Colectomy is being planned. PHYSICAL EXAMINATION: VITAL SIGNS: Temperature 97.8, pulse of 106, blood pressure 113/71, respiratory rate of 18, O2 saturation 100%. HEENT: Head atraumatic and normocephalic. CHEST: Clear to auscultation bilaterally. ABDOMEN: Soft. NEUROLOGIC: Awake and alert. No focal neurologic deficit. EXTREMITIES: Pedal edema. [place]ATORY [place]: [place] [address], hemoglobin 9.0, platelets 124. Chemistry reviewed. Chest x-ray on 02/20 showing mild congestion. ASSESSMENT/PLAN: Ms. Pathak is a 74-year-old female was initially admitted for colectomy, however, became hypotensive and lactic acidosis suspecting sepsis, now improved. I will continue the patient on meropenem for ESBL UTI. We will consider small dose of Lasix because of increasing congestion. MD EMETERIO Sears/JAD /[id number]
--- NOTE | 2020-02-23 18:09 | NUR ---
Patient resting in bed, alert with no distress, On TPN, IJ site is intact, call light in reach, keep monitoring
[2020-02-23] MEDS: CENTRAL TPN FORMULA 1 BAG IV SCH (20:00)
--- NOTE | 2020-02-23 22:23 | NUR ---
pt resting comfortably in bed no signs of distress no complaints at this time
[2020-02-24] VITALS (10 sets, daily range): BP systolic 106–139; BP diastolic 60–103
--- NOTE | 2020-02-24 00:30 | NUR ---
pt resting comfortably in bed no signs of distress no complaints at this time
[2020-02-24] MEDS: MEROPENEM 500MG/ NS 50ML 50 ML IV SCH ×3 (05:54→21:13)
[2020-02-24] MEDS: INSULIN LISPRO 100 UNIT/1 ML 3ML VIAL SQ SCH ×4 (05:54→23:55)
--- NOTE | 2020-02-24 07:00 | NUR ---
PATIENT IS AWAKE AND IN STABLE CONDITION WITH NO S/S OF RESPIRATORY DISTRESS. NO PAIN VOICED. IV TPN INFUSING. ROBERTSON INTACT AND DRAINING; URINE IS YELLOW TO LIGHT GEOVANY. DIAPER APPLIED. BED ALARM APPLIED. CALL LIGHT IS WITHIN REACH, PATIENT INSTRUCTED TO CALL FOR ASSISTANCE NEEDED.
[2020-02-24] MEDS: PANTOPRAZOLE SOD 40 MG TABEC PO SCH (08:14)
[2020-02-24] MEDS: BALSAM PERU/CASTOR OIL 60 GM OINT...G. TP SCH (11:22)
--- NOTE | 2020-02-24 11:22 | NUR ---
WOUND CARE COMPLETED - PATIENT TOLERATED DRESSING CHANGE WELL. DRESSINGS TO UPPER AND LOWER EXTREMITIES ARE CLEAN, DRY, AND INTACT. ALLEVYN APPLIED TO SACRUM. BED ALARM APPLIED. CALL LIGHT IS WITHIN REACH OF PATIENT.
--- NOTE | 2020-02-24 18:59 | NUR ---
PATIENT IS AWAKE AND IN STABLE CONDITION WITH NO S/S OF RESPIRATORY DISTRESS. NO PAIN VOICED. ROBERTSON INTACT AND DRAINING. TPN INFUSING. DIAPER APPLIED. DRESSING TO UPPER AND LOWER EXTREMITIES ARE C/D/I. BED ALARM APPLIED. CALL LIGHT IS WITHIN REACH, PATIENT INSTRUCTED TO CALL FOR ASSISTANCE NEEDED. BEDSIDE REPORT GIVEN TO ONCOMING NURSE.
[2020-02-24] MEDS ORDERED: CENTRAL TPN FORMULA 1 BAG IV SCH (20:00)
[2020-02-25] VITALS (10 sets, daily range): BP systolic 102–136; BP diastolic 62–98
[2020-02-25] MEDS: MEROPENEM 500MG/ NS 50ML 50 ML IV SCH ×3 (06:00→21:24)
[2020-02-25] MEDS: INSULIN LISPRO 100 UNIT/1 ML 3ML VIAL SQ SCH ×3 (06:00→18:00)
[2020-02-25 06:29] LABS: ANION GAP 10.1 mmol/L (8-16); BLOOD UREA NITROGEN 6 mg/dL (7-26); BUN/CREATININE RATIO 12 (6-25); CALCIUM 7.5 mg/dL (8.4-10.2); CARBON DIOXIDE 22 mmol/L (22-29); CHLORIDE 111 mmol/L (98-107); EST GLOMERULAR FILTRATION RATE > 60 ML/MIN (60-); GLUCOSE 211 mg/dL (74-118); POTASSIUM 4.1 mmol/L (3.5-5.1); SODIUM 139 mmol/L (136-145)
--- NOTE | 2020-02-25 07:00 | NUR ---
Received patient lying in bed with eyes close. Respiration even and unlabored without SOB. Left IJ intact infusing TPN at 65 ml/hr. Call light within reach.
[2020-02-25] MEDS: PANTOPRAZOLE SOD 40 MG TABEC PO SCH (07:30)
--- NOTE | 2020-02-25 08:55 | NUR ---
Attempted visit however pt under isolation precautions. CHAD SAMANO [employer] Spiritual Care Department O: [phone]
[2020-02-25] MEDS: BALSAM PERU/CASTOR OIL 60 GM OINT...G. TP SCH (10:29)
--- NOTE | 2020-02-25 11:30 | NUR ---
Verbal order given by Dr. Missy Dobson to continue current TPN.
--- NOTE | 2020-02-25 12:43 | NUR ---
Patient is transported for procedure at this time via room bed. Left IJ intact, infusing TPN as ordered.
[2020-02-25] MEDS ORDERED: SUCCINYLCHOLINE CHLORIDE 20 MG/ML 10ML VIAL ONE (14:20)
[2020-02-25] MEDS ORDERED: ATROPINE SULFATE 1 MG/ML VIAL ONE (14:20)
[2020-02-25] MEDS ORDERED: ETOMIDATE 2 MG/ML 10 ML INJ IV ONE (14:20)
[2020-02-25] MEDS ORDERED: ROCURONIUM BROMIDE 10 MG/ML 5ML VIAL IV ONE (14:20)
[2020-02-25] MEDS ORDERED: DEXAMETHASONE SOD PHOS INJ 4 MG/ML VIAL ONE (14:20)
[2020-02-25] MEDS ORDERED: NEOSTIGMINE 1 MG/ML 10ML VIAL ONE (14:20)
[2020-02-25] MEDS ORDERED: SEVOFLURANE INHAL SOLN 250 ML PEN BTL ONE (14:20)
[2020-02-25] MEDS ORDERED: ONDANSETRON HCL INJ 2MG/ML 2ML 2 MG/ML VIAL ONE (14:20)
[2020-02-25] MEDS ORDERED: KETOROLAC TROMETHAMINE 30 MG/ML VIAL ONE (14:20)
[2020-02-25] MEDS ORDERED: INSULIN REGULAR, HUMAN 100 UNIT/1 ML 3ML VIAL ONE (14:34)
[2020-02-25] MEDS ORDERED: BUPIVACAINE 0.25% 30ML SDV ONE (15:15)
[2020-02-25] MEDS ORDERED: BUPIVACAINE LIPOSOME/PF 266 MG/20 ML IJ ONE (15:15)
[2020-02-25] MEDS: SODIUM CHLORIDE 0.9% 1000ML 1,000 ML IV SCH (16:00)
[2020-02-25] MEDS ORDERED: ACETAMINOPHEN 1000 MG/100 ML IV PRN (16:00)
[2020-02-25] MEDS ORDERED: ONDANSETRON HCL INJ 2MG/ML 2ML 2 MG/ML VIAL IV PRN (16:00)
--- NOTE | 2020-02-25 16:41 | Operative Report ---
DATE OF PROCEDURE: 02/25/2020 SURGEON: Augie Gong MD PREOPERATIVE DIAGNOSIS: Obstructing carcinoma of the ascending colon. POSTOPERATIVE DIAGNOSIS: Obstructing carcinoma of the ascending colon. OPERATIONS PERFORMED: Exploratory laparotomy and right hemicolectomy. ASSISTANTS: 1. Dr. Benji Gong. 2. KAILEY Paredes. ANESTHESIA: General. COMPLICATIONS: None. ESTIMATED BLOOD LOSS: 25 mL. DESCRIPTION OF PROCEDURE: With the patient lying in bed in the supine position under good general anesthesia, the abdomen was prepped with Betadine solution, draped in the usual manner. A midline incision was made, it was carried down through the subcutaneous tissue into the midline fascia. The patient had a previous hernia repair and there was a mesh at the bottom part of the incision. The peritoneum was opened and the abdomen was entered. Upon entering the abdominal cavity, some ascitic clear fluid was encountered, which was aspirated. There was probably about close to 1 L of fluid in the abdomen. All of this was aspirated. Examination at this point revealed the liver to be free of any metastatic disease. The examination also revealed some tumor in the ascending colon, which was appeared to be almost totally obstructing. The small bowel was somewhat dilated proximal to this. The colon distally appeared to be decompressed. The colon in the distal transverse colon was somewhat thickened and there was some signs of some diverticulosis in the sigmoid colon. The rest of the abdominal exploration was otherwise within normal limits. The colon was then mobilized off the lateral gutter using the EnSeal device. The duodenum was identified and preserved. The hepatocolic ligament was taken down and the colon was delivered up into the wound. After this was done, the terminal ileum was then divided with an application of IRMA-75 stapler and similarly the midtransverse colon just distal to the 2nd tattooed area was also divided with an application of the IRMA-75 stapler. The mesentery was then slowly and carefully taken down with the EnSeal device with the larger vessels also being ligated with a 0 silk tie and the specimen was totally and completely removed and sent for pathological examination. The anastomosis was then completed bringing the terminal ileum to the transverse colon with another application of IRMA-75 stapler. The remaining opening was closed with a TA-60 stapler. Gloves and instruments were then changed. The anastomosis was reinforced with interrupted sutures of 3-0 silk and the mesenteric rent was closed with a running suture of 2-0 Vicryl. The abdomen was then copiously irrigated. Perfect hemostasis was ascertained and the abdomen was then closed in layers. The peritoneum and fascia were closed in a single layer using a running #1 Vicryl and the skin was closed with clips. A dressing was applied. The sponge, lap, and needle counts were correct. The patient tolerated the procedure well and returned to the recovery room in stable condition. MD ELSIE Stallworth/JAD /[id number]
--- NOTE | 2020-02-25 20:36 | NUR ---
194: Rec'd pt from [facility]. VS stable. Pt AAOx4. ABD surgical site C/D/I. Pt given full CHG bath and linens changed, allevyn applied to sacrum. Redness noted to donnie area as well as weeping edema to bilat. arms/hands which are wrapped in gauze at this time. Pt resting well with call light in lap, bed in low position and HOB at 45 degrees. 2015: Dr. Ambrosio at bedside rounding, discussed possible lasix order, he will review lab work.
[2020-02-25] MEDS ORDERED: FUROSEMIDE INJ 10 MG/ML 4 ML VIAL IV ONE (21:00)
[2020-02-25] MEDS: CENTRAL TPN FORMULA 1 BAG IV SCH (21:23)
--- NOTE | 2020-02-25 21:38 | Progress Note ---
DATE: SUBJECTIVE: The patient underwent exploratory laparotomy with right hemicolectomy for obstructive carcinoma of the ascending colon. The patient is in the ICU, currently on TPN. She is denying any complaints of chest pain or shortness of breath. REVIEW OF SYSTEMS: Denies any chest pain, nausea, or vomiting. Mild abdominal discomfort. PHYSICAL EXAMINATION: VITAL SIGNS: Temperature 97.4, pulse of 98, blood pressure 126/76, respiratory rate of 18, and O2 saturation 99% on 3 L. HEENT: Head atraumatic normocephalic. CHEST: Clear to auscultation bilaterally. No wheezing. HEART: S1, S2 audible. ABDOMEN: Has a dressing. LABORATORY DATA: Reviewed. White count of 12,000, hemoglobin 9.0, platelets 124. Chemistries reviewed. ASSESSMENT/PLAN: Ms. Pathak is a 74-year-old female status post hemicolectomy for carcinoma of the colon, currently stable on TPN. Oxygen as needed to keep the O2 saturation more than or equal to 92%. The patient is on TPN possibly fluid overload. I will give one dose of Lasix now. MD EMETERIO Sears/JAD /[id number]
[2020-02-26] VITALS (20 sets, daily range): BP systolic 104–156; BP diastolic 49–101
[2020-02-26] MEDS: INSULIN LISPRO 100 UNIT/1 ML 3ML VIAL SQ SCH ×4 (00:50→18:00)
[2020-02-26 06:08] LABS: BASOPHILS % 0.3 % (0.0-1.0); HEMATOCRIT 26.4 % (34.2-44.1); HEMOGLOBIN 8.4 g/dL (12.0-16.0); LYMPHOCYTES # (AUTO) 0.6 (1.0-3.2); LYMPHOCYTES % 6.1 % (18.0-39.1); MEAN CORPUSCULAR HEMOGLOBIN 30.9 pg (28-32); MEAN CORPUSCULAR HGB CONC 31.8 g/dL (31-35); MEAN CORPUSCULAR VOLUME 97.1 fL (81-99); MONOCYTES # (AUTO) 0.5 (0.2-0.8); MONOCYTES % 4.5 % (4.4-11.3); NEUTROPHILS # (AUTO) 8.9 (2.1-6.9); NEUTROPHILS % 88.4 % (38.7-80.0); PLATELET COUNT 130 x10e3/uL (140-360); RED BLOOD COUNT 2.72 x10e6/uL (3.6-5.1); RED CELL DISTRIBUTION WIDTH 20.5 % (11.7-14.4)
[2020-02-26 06:30] LABS: ALANINE AMINOTRANSFERASE 9 IU/L (0-55); ALBUMIN 1.4 g/dL (3.5-5.0); ALBUMIN/GLOBULIN RATIO 0.6 (0.8-2.0); ALKALINE PHOSPHATASE 87 IU/L (40-150); BLOOD UREA NITROGEN 9 mg/dL (7-26); BUN/CREATININE RATIO 17 (6-25); CALCIUM 7.4 mg/dL (8.4-10.2); CARBON DIOXIDE 24 mmol/L (22-29); CHLORIDE 111 mmol/L (98-107); CREATININE, SERUM 0.52 mg/dL (0.57-1.11); EST GLOMERULAR FILTRATION RATE > 60 ML/MIN (60-); GLUCOSE 307 mg/dL (74-118); SODIUM 138 mmol/L (136-145)
[2020-02-26] MEDS: MEROPENEM 500MG/ NS 50ML 50 ML IV SCH ×3 (06:49→22:02)
[2020-02-26] MEDS: PANTOPRAZOLE SOD 40 MG TABEC PO SCH (07:30)
--- NOTE | 2020-02-26 08:24 | NUR ---
Pt transferred from 288 to ICU 190 for higher level care after procedure. Will need new PT orders to resume skilled PT services. Thank you. Addendum: 02/26/20 at 0825 by LALI GARRETT SENIOR ENLISTED ADVISOR Amended: Links added.
[2020-02-26] MEDS: BALSAM PERU/CASTOR OIL 60 GM OINT...G. TP SCH (09:00)
[2020-02-26] MEDS: SODIUM CHLORIDE 0.9% 1000ML 1,000 ML IV SCH (12:00)
--- NOTE | 2020-02-26 16:52 | NUR ---
Received patient transfer from ICU. Respiration even and unlabored without SOB. Left IJ intact infusing TPN at 65ml/hr. Capellan catheter intact, secured to leg. Denies pain at this time. Call light in reach.
[2020-02-26] MEDS ORDERED: FUROSEMIDE INJ 10 MG/ML 4 ML VIAL IV ONE (20:45)
[2020-02-26] MEDS ORDERED: SODIUM CHLORIDE 0.9% 250ML 250 ML ONE (20:54)
[2020-02-26] MEDS: CENTRAL TPN FORMULA 1 BAG IV SCH (21:14)
[2020-02-26] MEDS: HYDROMORPHONE 1MG/1ML INJ IV PRN (22:03)
--- NOTE | 2020-02-26 23:36 | NUR ---
Call placed to Cardiology for BP 150/126 and HR of 122. No orders received at this time. Spoke with
--- NOTE | 2020-02-26 23:38 | Progress Note ---
DATE: SUBJECTIVE: Status post right hemicolectomy for obstructive carcinoma of the ascending colon. The patient is doing well out of ICU. PHYSICAL EXAMINATION: VITAL SIGNS: Temperature 97.8, pulse of 95, blood pressure 122/67. CHEST: Clear to auscultation bilaterally. Decreased air entry. HEART: S1 and S2 audible. NEUROLOGIC: Awake and alert. LABORATORY DATA: Reviewed. ASSESSMENT AND PLAN: Ms. Pathak is a 74-year-old female with circulatory septic shock, resolved. The patient is status post hemicolectomy, currently stable. Continue the patient on TPN, IV meropenem and IV antibiotics, IV meropenem for ESBL, UTI. Blood pressure has been stable. We will give another dose of Lasix and reduce the dose of midodrine as the patient's blood pressure is running on the higher side. MD EMETERIO Sears/JAD /[id number]
[2020-02-27] VITALS (7 sets, daily range): BP systolic 107–150; BP diastolic 78–120
[2020-02-27] MEDS: INSULIN LISPRO 100 UNIT/1 ML 3ML VIAL SQ SCH ×4 (00:55→18:00)
[2020-02-27] MEDS: HYDROMORPHONE 1MG/1ML INJ IV PRN (03:00)
[2020-02-27 06:10] LABS: BASOPHILS # (AUTO) 0.1 (0.0-0.1); BASOPHILS % 0.4 % (0.0-1.0); EOSINOPHILS % 0.1 % (0.0-6.0); HEMATOCRIT 27.8 % (34.2-44.1); HEMOGLOBIN 8.9 g/dL (12.0-16.0); MEAN CORPUSCULAR VOLUME 96.9 fL (81-99); MONOCYTES # (AUTO) 0.7 (0.2-0.8); MONOCYTES % 5.3 % (4.4-11.3); NEUTROPHILS # (AUTO) 11.9 (2.1-6.9); NEUTROPHILS % 86.5 % (38.7-80.0); PLATELET COUNT 169 x10e3/uL (140-360); RED BLOOD COUNT 2.87 x10e6/uL (3.6-5.1); RED CELL DISTRIBUTION WIDTH 20.4 % (11.7-14.4)
[2020-02-27] MEDS: MEROPENEM 500MG/ NS 50ML 50 ML IV SCH ×3 (06:15→22:00)
[2020-02-27 06:38] LABS: ANION GAP 10.6 mmol/L (8-16); BLOOD UREA NITROGEN 15 mg/dL (7-26); BUN/CREATININE RATIO 25 (6-25); CALCIUM 7.9 mg/dL (8.4-10.2); CARBON DIOXIDE 22 mmol/L (22-29); CHLORIDE 109 mmol/L (98-107); EST GLOMERULAR FILTRATION RATE > 60 ML/MIN (60-); GLUCOSE 290 mg/dL (74-118); POTASSIUM 4.6 mmol/L (3.5-5.1); SODIUM 137 mmol/L (136-145)
[2020-02-27 06:57] LABS: MAGNESIUM 2.2 MG/DL (1.3-2.1); PHOSPHORUS 3.5 MG/DL (2.3-4.7)
[2020-02-27] MEDS: PANTOPRAZOLE SOD 40 MG TABEC PO SCH (07:13)
--- NOTE | 2020-02-27 07:30 | NUR ---
PATIENT IS ALERT TO SELF AND IN STABLE CONDITION WITH NO S/S OF RESPIRATORY DISTRESS. NO PAIN VOICED. TELEMETRY APPLIED. TPN INFUSING. ROBERTSON INTACT AND DRAINING; URINE IS PALE AND SEDIMENTS NOTES. UPPER AND LOWER EXTREMITY DRESSINGS ARE INTACT. BED ALARM APPLIED. CALL LIGHT IS WITHIN REACH, PATIENT INSTRUCTED TO CALL FOR ASSISTANCE NEEDED
[2020-02-27] MEDS: METOPROLOL TARTRATE INJ 1 MG/ML VIAL IV SCH ×2 (13:25→20:00)
--- NOTE | 2020-02-27 14:35 | NUR ---
Nutrition Intervention Note RD Recommendation(s) for Physician: -TPN Rec's: Decrease NaCl to 20 mEq/L add Na Acetate 30 mEq/L, decrease K Acetate to 10 mEq/L, decrease Mg Sulfate to 10 mEq/L, continue other components as ordered (provides 1332 kcal and 78 g protein) -BG and insulin management per MD, continue 20 units of insulin in TPN -Recommend to advance diet when medically appropriate The patient meets criteria for unspecified SEVERE protein-calorie malnutrition. Plan of Care: RD following, monitoring for tolerance and adequacy, TPN recommendations Nutrition reason for involvement: follow up RD Assessment 02/26: Follow up. Pt NPO x day 2, POD#2 for R hemicolectomy for obstructive carcinoma of the ascending colon. Pt transferred out of the ICU. Pt continues on TPN at 65 m/hr. BG trended up and 20 units of insulin added to TPN yesterday. TPN rec's provided this evening and RN notified and order faxed to pharmacy. Current order meeting needs. Advancement of diet per MD. Chart reviewed. Will continue to monitor. 02/23/20: Follow up. Chart reviewed. Pt is not consuming much of liquid diet and remains on TPN. TPN is at 65 mL/hr. Current recommendations remain appropriate. Will continue to monitor. (02/20/20) Pt is a 74 year old female admitted with acute respiratory distress. Pt originally came to the hospital to have a colon resection due to colon cancer, but pt was lethargic and poorly responsive. Pt is currently on a clear liquid diet. Pt is tolerating liquid diet per RN. TPN was started yesterday at 43 mL/hr. Pt reports a decreased appetite and PO intake for the past month. Pt was unsure of any weight changes or her usual weight. Per weight history, pt weighed 150 lbs in December 2019; therefore, no weight loss is evident since December. No N/V or chewing/swallowing issues reported. Pt also is edematous per chart. Recommendations provided. Will continue to monitor. Principal Problems/Diagnoses: acute respiratory distress PMH: Hypertension, essential, Type 2 diabetes with complications, History of DVT, status post IVC filter, Colon cancer in need for resection, History of stroke with residual left-sided hemiparesis and poor functional state. GI: last recorded BM 02/23 x 2 Skin: sacrum reddened Labs: 02/26: Na 137, K 4.6, BUN 15, Cr 0.6, Gluc 290, POC Gluc 290, POC Gluc 224-286 (02/22) Na 137, K 3.5, BUN 6, Cr 0.53, Glu 135, Ca 7.2 (02/19) Na 139, K 3.2, BUN 10, Cr 0.73, Glu 131, Ca 7.0, Phos 2.1 Meds: protonix, zofran, humalog, abx, dilaudid IVF/Drips: TPN at 65 ml/hr Ht: 60 in Wt: 152.25 lbs BMI: 29.7 kg/m2 IBW: 100 lbs Malnutrition Evaluation (02/20/20) The patient meets criteria for unspecified SEVERE protein-calorie malnutrition. Energy intake: <75% of estimated energy requirements for 1 month Weight loss: No weight loss is evident since December 2019 per weight history in chart Fat loss: no loss identified per observation Muscle loss: no loss identified per observation Supporting Evidence: Fluid accumulation: moderate-severe (+3 edema right arm, 1 to +2 edema in left arm, +2 to +3 pitting edema to bilateral mid shins) per MD note 02/17 Functional Status: not assessed Nutrition Prescription (Diet Order): NPO, TPN @ 65 mL/hr with 25 gm/day lipids (provides 1332 kcal and 78 g protein) Estimated Nutritional Needs: 1811-2782 calories/day (18-20 kcal/kg CBW) 69-104 g protein/day (1.0-1.5 g pro/kg CBW) Diet Adequacy: TPN is meeting pts calorie and protein needs Tolerance: tolerating TPN Diet Education Needs Assessment:. Diet education not indicated, patient on temporary/transition diet. Nutrition Care Level: high Nutrition Diagnosis: Severe protein calorie malnutrition related to chronic illness as evidenced by pt meeting <75% of estimated energy needs for 1 month and moderate to severe fluid accumulation. Goal: Patient will meet 75-100% of estimated needs by follow up Progress: goal met Interventions: - Composition, Rate, Route Monitoring/Evaluation: -Total energy intake, Total protein intake, Formula/Solution, Weight change Signed: Zhanna Garza RD, LD, [facility]
[2020-02-27] MEDS: BALSAM PERU/CASTOR OIL 60 GM OINT...G. TP SCH (15:23)
--- NOTE | 2020-02-27 15:23 | NUR ---
WOUND CARE DRESSING CHANGED TO BILATERAL UPPER AND LOWER EXTREMITIES. DRESSINGS ARE C/D/I.
--- NOTE | 2020-02-27 19:45 | NUR ---
PATIENT IN STABLE CONDITION WITH NO S/S OF RESPIRATORY DISTRESS. NO PAIN VOICED. PATIENT CHANGED AND DIAPER APPLIED. TELEMETRY APPLIED. DRESSINGS ARE C/D/I. BILATERAL FEET ELEVATED BY PILLOWS. BED ALARM APPLIED. CALL LIGHT IS WITHIN REACH, PATIENT INSTRUCTED TO CALL FOR ASSISTANCE NEEDED. BEDSIDE SHIFT REPORT GIVEN TO ONCOMING NURSE.
[2020-02-27] MEDS: CENTRAL TPN FORMULA 1 BAG IV SCH (19:48)
--- NOTE | 2020-02-27 20:59 | Progress Note ---
DATE: SUBJECTIVE: The patient has improved. No distress. TPN order signed. One dose of Lasix was given yesterday because of concerns of fluid overload. The patient is breathing better. No distress. PHYSICAL EXAMINATION: VITAL SIGNS: Temperature 98.4, pulse of 110, blood pressure 107/78. CHEST: Clear. GENERAL: Awake and alert. LABORATORY DATA: Reviewed. ASSESSMENT/PLAN: Ms. Pathak is a 74-year-old female status post colectomy for colon mass. The patient is improving. Continue antibiotics. Overall, improved. Continue the patient on TPN. Appetite is poor. She is malnourished. MD EMETERIO Sears/AJD /[id number]
[2020-02-28] VITALS (8 sets, daily range): BP systolic 97–130; BP diastolic 68–94
[2020-02-28] MEDS: HYDROMORPHONE 1MG/1ML INJ IV PRN ×2 (00:30→21:35)
[2020-02-28] MEDS: METOPROLOL TARTRATE INJ 1 MG/ML VIAL IV SCH ×4 (02:00→20:00)
[2020-02-28] MEDS: MEROPENEM 500MG/ NS 50ML 50 ML IV SCH ×3 (06:00→21:23)
[2020-02-28] MEDS: INSULIN LISPRO 100 UNIT/1 ML 3ML VIAL SQ SCH ×4 (06:00→18:21)
[2020-02-28 06:31] LABS: BASOPHILS # (AUTO) 0.1 (0.0-0.1); BASOPHILS % 0.5 % (0.0-1.0); EOSINOPHILS % 0.3 % (0.0-6.0); HEMATOCRIT 29.3 % (34.2-44.1); LYMPHOCYTES # (AUTO) 1.3 (1.0-3.2); MEAN CORPUSCULAR HGB CONC 30.7 g/dL (31-35); MONOCYTES # (AUTO) 0.5 (0.2-0.8); MONOCYTES % 4.1 % (4.4-11.3); NEUTROPHILS % 84.4 % (38.7-80.0); PLATELET COUNT 176 x10e3/uL (140-360); RED CELL DISTRIBUTION WIDTH 21.2 % (11.7-14.4)
--- NOTE | 2020-02-28 06:44 | NUR ---
PT IN BED, WILL AWAKE TO TOUCH AND NAME, SMALL OUTPUT IN ROBERTSON, WILL CONTINUE TO MONITOR PT, TPN STILL INFUSING
[2020-02-28 07:05] LABS: ALANINE AMINOTRANSFERASE 11 IU/L (0-55); ALBUMIN 1.4 g/dL (3.5-5.0); ALBUMIN/GLOBULIN RATIO 0.5 (0.8-2.0); ALKALINE PHOSPHATASE 110 IU/L (40-150); ANION GAP 10.5 mmol/L (8-16); BUN/CREATININE RATIO 41 (6-25); CALCIUM 8.3 mg/dL (8.4-10.2); CARBON DIOXIDE 25 mmol/L (22-29); CHLORIDE 110 mmol/L (98-107); CREATININE, SERUM 0.59 mg/dL (0.57-1.11); EST GLOMERULAR FILTRATION RATE > 60 ML/MIN (60-); GLUCOSE 191 mg/dL (74-118); POTASSIUM 5.5 mmol/L (3.5-5.1); SODIUM 140 mmol/L (136-145)
[2020-02-28 07:11] LABS: BLOOD UREA NITROGEN 24 mg/dL (7-26)
[2020-02-28] MEDS: PANTOPRAZOLE SOD 40 MG TABEC PO SCH (07:30)
[2020-02-28] MEDS: BALSAM PERU/CASTOR OIL 60 GM OINT...G. TP SCH (09:28)
--- NOTE | 2020-02-28 09:40 | NUR ---
Morning labs are abnormal and a call was placed to the for orders.
--- NOTE | 2020-02-28 11:26 | NUR ---
Second call to the dr to discuss morning labs.
[2020-02-28] MEDS ORDERED: BISACODYL 10 MG SUPP PR ONE (12:15)
[2020-02-28] MEDS ORDERED: FENTANYL CITRATE/PF 100MCG/2 ML INJ ONE (13:31)
--- NOTE | 2020-02-28 14:05 | NUR ---
Spoke to Dr. Dobson regarding dc plan. He gave order to start [facility] eval. CM called and spoke to pt's daughter Tasha Fernandez [phone]. States she will look into LTAC and give CM a call back with decision.
--- NOTE | 2020-02-28 15:36 | NUR ---
Received callback from daughter Tasha. Gave choice for [facility] in [place]. Choice letter placed in front of chart. Referral sent to [facility]. Laney with [facility] was informed of referral and verified that she received clinicals.
--- NOTE | 2020-02-28 16:53 | NUR ---
Nutrition Intervention Note RD Recommendation(s) for Physician: -TPN Rec's: Decrease NaCl to 20 mEq/L add Na Acetate 30 mEq/L, decrease K Acetate to 10 mEq/L, decrease Mg Sulfate to 10 mEq/L, continue other components as ordered (provides 1332 kcal and 78 g protein) -BG and insulin management per MD -Recommend to advance diet when medically appropriate The patient meets criteria for unspecified SEVERE protein-calorie malnutrition. Plan of Care: RD following, monitoring for tolerance and adequacy, TPN recommendations Nutrition reason for involvement: follow up RD Assessment 02/27: Follow up. Chart reviewed. Pt remains on TPN @ 65 mL/hr. Pt is being evaluated for LTAC per chart. Current recommendations remain appropriate. Will continue to monitor. 02/26: Follow up. Pt NPO x day 2, POD#2 for R hemicolectomy for obstructive carcinoma of the ascending colon. Pt transferred out of the ICU. Pt continues on TPN at 65 m/hr. BG trended up and 20 units of insulin added to TPN yesterday. TPN rec's provided this evening and RN notified and order faxed to pharmacy. Current order meeting needs. Advancement of diet per MD. Chart reviewed. Will continue to monitor. 02/23/20: Follow up. Chart reviewed. Pt is not consuming much of liquid diet and remains on TPN. TPN is at 65 mL/hr. Current recommendations remain appropriate. Will continue to monitor. (02/20/20) Pt is a 74 year old female admitted with acute respiratory distress. Pt originally came to the hospital to have a colon resection due to colon cancer, but pt was lethargic and poorly responsive. Pt is currently on a clear liquid diet. Pt is tolerating liquid diet per RN. TPN was started yesterday at 43 mL/hr. Pt reports a decreased appetite and PO intake for the past month. Pt was unsure of any weight changes or her usual weight. Per weight history, pt weighed 150 lbs in December 2019; therefore, no weight loss is evident since December. No N/V or chewing/swallowing issues reported. Pt also is edematous per chart. Recommendations provided. Will continue to monitor. Principal Problems/Diagnoses: acute respiratory distress PMH: Hypertension, essential, Type 2 diabetes with complications, History of DVT, status post IVC filter, Colon cancer in need for resection, History of stroke with residual left-sided hemiparesis and poor functional state. GI: last recorded BM 02/23 x 2 Skin: sacrum reddened Labs: 02/27: N 140, K 5.5, BUN 24, Cr 0.59, Glu 191, Ca 8.3 02/26: Na 137, K 4.6, BUN 15, Cr 0.6, Gluc 290, POC Gluc 290, POC Gluc 224-286 (02/22) Na 137, K 3.5, BUN 6, Cr 0.53, Glu 135, Ca 7.2 (02/19) Na 139, K 3.2, BUN 10, Cr 0.73, Glu 131, Ca 7.0, Phos 2.1 Meds: metoprolol, antibiotic, insulin, TPN @ 65, zofran Ht: 60 in Wt: 152.25 lbs BMI: 29.7 kg/m2 IBW: 100 lbs Malnutrition Evaluation (02/20/20) The patient meets criteria for unspecified SEVERE protein-calorie malnutrition. Energy intake: <75% of estimated energy requirements for 1 month Weight loss: No weight loss is evident since December 2019 per weight history in chart Fat loss: no loss identified per observation Muscle loss: no loss identified per observation Supporting Evidence: Fluid accumulation: moderate-severe (+3 edema right arm, 1 to +2 edema in left arm, +2 to +3 pitting edema to bilateral mid shins) per MD note 02/17 Functional Status: not assessed Nutrition Prescription (Diet Order): NPO, TPN @ 65 mL/hr with 25 gm/day lipids (provides 1332 kcal and 78 g protein) Estimated Nutritional Needs: 4121-9857 calories/day (18-20 kcal/kg CBW) 69-104 g protein/day (1.0-1.5 g pro/kg CBW) Diet Adequacy: TPN is meeting pts calorie and protein needs Tolerance: tolerating TPN Diet Education Needs Assessment:. Diet education not indicated, patient on temporary/transition diet. Nutrition Care Level: high Nutrition Diagnosis: Severe protein calorie malnutrition related to chronic illness as evidenced by pt meeting <75% of estimated energy needs for 1 month and moderate to severe fluid accumulation. Goal: Patient will meet 75-100% of estimated needs by follow up Progress: goal met Interventions: - Composition, Rate, Route Monitoring/Evaluation: -Total energy intake, Total protein intake, Formula/Solution, Weight change Signed: Jodi Wilde RD, LD
[2020-02-28] MEDS: CENTRAL TPN FORMULA 1 BAG IV SCH (19:38)
--- NOTE | 2020-02-28 20:59 | Progress Note ---
DATE: SUBJECTIVE: The patient is breathing well. No distress. TPN was ordered this morning by me. Potassium was on the higher side. We discontinued the KCl and K-Phos will be continued. Overall, the patient is breathing better. PHYSICAL EXAMINATION: VITAL SIGNS: Temperature 98.1, pulse of 80, blood pressure 114/79, respiratory rate of 18, O2 saturation 100%. CHEST: Clear to auscultation bilaterally. NEUROLOGIC: Awake, alert. ABDOMEN: Soft. LABORATORY DATA: Reviewed. Potassium is 5.5. ASSESSMENT/PLAN: Ms. Pathak is a 74-year-old female. She underwent colon mass resection. The patient is malnourished, getting TPN. Overall improved, out of ICU, breathing much better. Labs reviewed. I will change the TPN. I will stop the KCl from TPN and potassium phosphate will be continued. We will give a small dose of Lasix. The patient appears to be mildly fluid overloaded. MD EMETERIO Sears/JAD /[id number]
[2020-02-28] MEDS: BISACODYL 10 MG SUPP PR SCH (21:35)
[2020-02-29 00:51] VITALS: BP 116/78
[2020-02-29] MEDS: INSULIN LISPRO 100 UNIT/1 ML 3ML VIAL SQ SCH ×3 (01:17→12:00)
[2020-02-29] MEDS: METOPROLOL TARTRATE INJ 1 MG/ML VIAL IV SCH ×2 (01:23→07:30)
[2020-02-29] MEDS: MEROPENEM 500MG/ NS 50ML 50 ML IV SCH (05:05)
[2020-02-29 05:35] VITALS: BP 118/68
--- NOTE | 2020-02-29 06:46 | NUR ---
RECEIVED BEDSIDE SHIFT REPORT FROM OFF GOING NURSE. PATIENT IS RESTING IN BED. NO ACUTE DISTRESS NOTED. CALL LIGHT WITHIN REACH. BED IN THE LOWEST POSITION. BED ALARM ON.
[2020-02-29] MEDS: PANTOPRAZOLE SOD 40 MG TABEC PO SCH ×2 (07:30→09:19)
[2020-02-29] MEDS: BISACODYL 10 MG SUPP PR SCH (07:48)
[2020-02-29] MEDS: BALSAM PERU/CASTOR OIL 60 GM OINT...G. TP SCH (07:48)
[2020-02-29 08:00] VITALS: BP 119/69
--- NOTE | 2020-02-29 10:41 | NUR ---
ROBERTSON DISCONTINUED WITH TIP INTACT AT THIS TIME, PATIENT TOLERATED IT WELL. NO URINE NOTED IN BAG.
[2020-02-29 10:47] LABS: ANION GAP 9.9 mmol/L (8-16); BLOOD UREA NITROGEN 29 mg/dL (7-26); BUN/CREATININE RATIO 54 (6-25); CARBON DIOXIDE 25 mmol/L (22-29); CHLORIDE 110 mmol/L (98-107); CREATININE, SERUM 0.54 mg/dL (0.57-1.11); EST GLOMERULAR FILTRATION RATE > 60 ML/MIN (60-); GLUCOSE 154 mg/dL (74-118); POTASSIUM 4.9 mmol/L (3.5-5.1); SODIUM 140 mmol/L (136-145)
--- NOTE | 2020-02-29 11:24 | NUR ---
LONG-TERM ACUTE CARE DISCHARGE INFORMATION PATIENT HAS BEEN ACCEPTED TO: [address] [place] [address] ACCEPTING DRILL OPERATOR AUTOMATIC: Katja Gong ACCEPTING MD: Dr. Dobson ROOM: 504 NURSE CALL REPORT TO: [phone] THE FOLLOWING DOCUMENTS MUST ACCOMPANY PATIENT FOR TRANSFER: copy of chart, transfer MAR COPIED CHART: Anne-Marie, community relations director MOT INFO RECEIVED FROM: Laney with [facility] ORDER/RECONCILED MED LIST: to be obtained by bedside RN [id number] DNR: n/a MOT completed and placed at nurses station. STEVEN Martinez informed of acceptance.
--- NOTE | 2020-02-29 11:38 | NUR ---
PATIENT HAD ONE WET DIAPER AT THIS TIME.
--- NOTE | 2020-02-29 11:47 | NUR ---
REPORT CALLED IN TO STEVEN PAREDES @ [facility] AT THIS TIME.
[2020-02-29 12:00] VITALS: BP 104/60
--- NOTE | 2020-02-29 12:06 | Progress Note ---
DATE: SUBJECTIVE: The patient is in no distress, breathing well. Possible transfer to LTAC. PHYSICAL EXAMINATION: VITAL SIGNS: Temperature 98, pulse of 83, blood pressure 119/69, respiratory rate of 18, and O2 saturation 95%. CHEST: Clear. GENERAL: The patient is sleepy, but arousable. ABDOMEN: Soft. She is still not eating well. ASSESSMENT/PLAN: Ms. 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 Blood pressure and heart rate have been stable. The patient is on TPN. TPN order signed. Potassium decreased. One dose of Lasix was given yesterday. MD EMETERIO Sears/JAD /[id number]
--- NOTE | 2020-02-29 13:21 | NUR ---
RECEIVED DISCHARGE ORDER FROM MD. PATIENT IS IN STABLE CONDITION. IV LINE TO LEFT IJ IS INTACT, SALINE FLUSHED. TPN BAG GIVEN TO EMS PERSONNEL. PATIENT TRANSPORTED VIA EMS TO [facility]. DAUGHTER IS AWARE. ALL PERSONAL ITEMS GIVEN TO EMS. TRANSFER PAPERWORK/MARS GIVEN TO EMS PERSONNEL.
[2020-02-29] MEDS ORDERED: ONDANSETRON HCL 4 MG ORAL DISINTEGRATING TAB PO PRN (13:30)
== END 2020-02-29 13:28 | DRG 853 ==
LOC: ER 07:47 → ERHOLD 08:23 → ICU 09:39 → MED/SURG3 02-20 12:12 → ICU 02-25 18:03 → MED/SURG3 02-26 16:49
PROC: 02HV33Z Insertion of Infusion Device into Superior Vena Cava, Percutaneous Approach (ICD-10-PCS; 2020-02-18)
PROC: B548ZZA Ultrasonography of Superior Vena Cava, Guidance (ICD-10-PCS; 2020-02-18)
PROC: 30233N1 Transfusion of Nonautologous Red Blood Cells into Peripheral Vein, Percutaneous Approach (ICD-10-PCS; 2020-02-19)
PROC: 30233L1 Transfusion of Nonautologous Fresh Plasma into Peripheral Vein, Percutaneous Approach (ICD-10-PCS; 2020-02-19)
PROC: 30233K1 Transfusion of Nonautologous Frozen Plasma into Peripheral Vein, Percutaneous Approach (ICD-10-PCS; 2020-02-19)
PROC: 3E0436Z Introduction of Nutritional Substance into Central Vein, Percutaneous Approach (ICD-10-PCS; 2020-02-19)
PROC: 0DTF0ZZ Resection of Right Large Intestine, Open Approach (ICD-10-PCS; principal; 2020-02-25 12:00)
DX: A41.9 Sepsis, unspecified organism (principal); E43 Unspecified severe protein-calorie malnutrition; R65.21 Severe sepsis with septic shock; E87.2 Acidosis; I69.354 Hemiplegia and hemiparesis following cerebral infarction affecting left non-dominant side; N39.0 Urinary tract infection, site not specified; C18.2 Malignant neoplasm of ascending colon; Z16.12 Extended spectrum beta lactamase (ESBL) resistance; E88.09 Other disorders of plasma-protein metabolism, not elsewhere classified; I95.9 Hypotension, unspecified; I10 Essential (primary) hypertension; E11.9 Type 2 diabetes mellitus without complications; D64.9 Anemia, unspecified; M19.90 Unspecified osteoarthritis, unspecified site; R06.03 Acute respiratory distress; I25.10 Atherosclerotic heart disease of native coronary artery without angina pectoris; H54.8 Legal blindness, as defined in USA; Z86.711 Personal history of pulmonary embolism; Z79.01 Long term (current) use of anticoagulants; Z86.718 Personal history of other venous thrombosis and embolism; Z95.828 Presence of other vascular implants and grafts; I69.398 Other sequelae of cerebral infarction; I69.315 Cognitive social or emotional deficit following cerebral infarction; B96.20 Unspecified Escherichia coli [E. coli] as the cause of diseases classified elsewhere; Z68.29 Body mass index [BMI] 29.0-29.9, adult; E87.6 Hypokalemia; Z79.4 Long term (current) use of insulin
CPT/HCPCS: 36415; 36600; 70450; 71045; 71260; 74177; 74470; 80048; 80053; 80202; 81001; 82270; 82550; 82553; 82805; 82948; 83540; 83605; 83735; 84100; 84466; 84484; 85014; 85018; 85025; 85610; 85730; 86850; 86900; 86920; 87040; 87086; 87186; 88309; 93005; 93306; 96365; 96366; 97139; 99251; 99284; J0330; J0461; J0692; J1100; J1170; J1817; J1885; J1940; J2001; J2405; J2710; J3010; J3370; J3480; J7030; J7050; P9016; P9017; P9047; Q9967

== ENCOUNTER → 2021-03-20 | Day surgery (SDC) | payer MEDICARE, OTHER ==
[~2021-03-20] MED LIST changes: +ACIDOPHILUS1 EAC1 PO; +BACTRIM 400-801 EACH PO; +BELLADONNA/OPIUM 30 MG SUPP RC ONE; +BUPIVACAINE HCL 0.5% INJ 30 ML VIAL INJ ONE; +CALCIUM 500 MG1 EAC1 PO; +CEFEPIME HCL 1 GM VIAL ONE; +COLACE100 MG PO; +DEXAMETHASONE SOD PHOS INJ 4 MG/ML SDV ONE; +EPHEDRINE SULFATE INJ 50 MG/ML VIAL ONE; +FENTANYL CITRATE/PF 100MCG/2 ML INJ ONE; +GENTAMICIN 80MG/NS 100 ML 200 ML IV ONE; +IOPAMIDOL 300MG/ML 50ML INFUS..BTL IV ONE; +LEVEMIR FL100 UNIT/1 SC; +LIDOCAINE 1% W/EPINEPHRINE 20 ML VIAL ONE; +LIDOCAINE HCL 2% LOCAL INJ 5 ML SDV VIAL INJ ONE; +LISINOPRIL5 MG PO; +MIDAZOLAM HCL 2 MG/2 ML VIAL ONE; +MILK OF MA2400 MG/10 PO; +MIRTAZAPINE15 MG PO; +ONDANSETRON HCL INJ 2MG/ML 2ML 2 MG/ML VIAL ONE; +POVIDONE IODINE 0.05% 0.05 % ML PO ONE; +PROPOFOL IV EMULSION 10 MG/ML 20 ML VIAL ONE; +SEVOFLURANE INHAL SOLN 250 ML PEN BTL ONE; +SODIUM CHLORIDE 0.9% 50ML 50 ML ONE; +VITAMIN D3250 MCG PO; +ZOFRAN4 MG PO
[2021-03-20 10:45] LABS: BASOPHILS # (AUTO) 0.1 (0.0-0.1); BASOPHILS % 0.7 % (0.0-1.0); EOSINOPHILS # (AUTO) 0.1 (0.0-0.4); EOSINOPHILS % 1.5 % (0.0-6.0); HEMATOCRIT 39.1 % (34.2-44.1); HEMOGLOBIN 12.9 g/dL (12.0-16.0); LYMPHOCYTES # (AUTO) 1.7 (1.0-3.2); LYMPHOCYTES % 23.8 % (18.0-39.1); MEAN CORPUSCULAR HEMOGLOBIN 29.9 pg (28-32); MEAN CORPUSCULAR VOLUME 90.7 fL (81-99); MONOCYTES # (AUTO) 0.5 (0.2-0.8); MONOCYTES % 6.6 % (4.4-11.3); NEUTROPHILS # (AUTO) 4.9 (2.1-6.9); NEUTROPHILS % 67.1 % (38.7-80.0); PLATELET COUNT 202 x10e3/uL (140-360); RED BLOOD COUNT 4.31 x10e6/uL (3.6-5.1); RED CELL DISTRIBUTION WIDTH 14.1 % (11.7-14.4)
[2021-03-20 11:03] LABS: ANION GAP 13.6 mmol/L (8-16); CALCIUM 9.4 mg/dL (8.4-10.2); CREATININE, SERUM 0.78 mg/dL (0.57-1.11); POTASSIUM 4.6 mmol/L (3.5-5.1)
[2021-03-20 15:30] VITALS: BP 130/72
== END | disposition home or self-care (01) ==
LOC: OR 10:20
PROVIDERS: ATTEND Urology
DX: R32 Unspecified urinary incontinence (principal); N39.0 Urinary tract infection, site not specified; N81.10 Cystocele, unspecified; N81.6 Rectocele; N95.2 Postmenopausal atrophic vaginitis; E11.9 Type 2 diabetes mellitus without complications; K21.9 Gastro-esophageal reflux disease without esophagitis; D64.9 Anemia, unspecified; F32.A Depression, unspecified; I10 Essential (primary) hypertension; E78.5 Hyperlipidemia, unspecified; Z20.822 Contact with and (suspected) exposure to COVID-19; Z79.4 Long term (current) use of insulin; Z79.899 Other long term (current) drug therapy; Z86.711 Personal history of pulmonary embolism; Z86.718 Personal history of other venous thrombosis and embolism; Z85.038 Personal history of other malignant neoplasm of large intestine; Z86.73 Personal history of transient ischemic attack (TIA), and cerebral infarction without residual deficits; Z87.891 Personal history of nicotine dependence
CPT/HCPCS: 36415; 51040; 52005; 71046; 74420; 80048; 85025; 87086; 87186; 93005; J0692; J1100; J1580; J2001; J2250; J2405; J2704; J3010; Q9967; U0002

== ENCOUNTER 2022-04-16 20:01 | Emergency (ER) | payer MEDICARE, OTHER ==
[~2022-04-16] VITALS: Ht 304.8 cm; Wt 68.9 kg
[~2022-04-16 20:01] MED LIST changes: -BELLADONNA/OPIUM 30 MG SUPP RC ONE; -BUPIVACAINE HCL 0.5% INJ 30 ML VIAL INJ ONE; -CEFEPIME HCL 1 GM VIAL ONE; -DEXAMETHASONE SOD PHOS INJ 4 MG/ML SDV ONE; -EPHEDRINE SULFATE INJ 50 MG/ML VIAL ONE; -FENTANYL CITRATE/PF 100MCG/2 ML INJ ONE; -GENTAMICIN 80MG/NS 100 ML 200 ML IV ONE; -IOPAMIDOL 300MG/ML 50ML INFUS..BTL IV ONE; -LIDOCAINE 1% W/EPINEPHRINE 20 ML VIAL ONE; -LIDOCAINE HCL 2% LOCAL INJ 5 ML SDV VIAL INJ ONE; -MIDAZOLAM HCL 2 MG/2 ML VIAL ONE; -ONDANSETRON HCL INJ 2MG/ML 2ML 2 MG/ML VIAL ONE; -POVIDONE IODINE 0.05% 0.05 % ML PO ONE; -PROPOFOL IV EMULSION 10 MG/ML 20 ML VIAL ONE; -SEVOFLURANE INHAL SOLN 250 ML PEN BTL ONE; -SODIUM CHLORIDE 0.9% 50ML 50 ML ONE
[2022-04-16] MEDS ORDERED: ASPIRIN 81 MG CHEW TAB PO ONE (20:15)
[2022-04-16] MEDS ORDERED: ACETAMINOPHEN 325 MG TAB PO ONE (20:15)
[2022-04-16 20:33] LABS: BASOPHILS % 0.2 % (0.0-1.0); EOSINOPHILS % 0.1 % (0.0-6.0); HEMOGLOBIN 13.9 g/dL (12.0-16.0); LYMPHOCYTES # (AUTO) 0.3 (1.0-3.2); LYMPHOCYTES % 2.9 % (18.0-39.1); MEAN CORPUSCULAR HEMOGLOBIN 29.7 pg (28-32); MEAN CORPUSCULAR HGB CONC 30.9 g/dL (31-35); MEAN CORPUSCULAR VOLUME 96.2 fL (81-99); MONOCYTES % 0.3 % (4.4-11.3); NEUTROPHILS # (AUTO) 8.7 (2.1-6.9); NEUTROPHILS % 96.1 % (38.7-80.0); PLATELET COUNT 167 x10e3/uL (140-360); RED BLOOD COUNT 4.68 x10e6/uL (3.6-5.1); RED CELL DISTRIBUTION WIDTH 13.4 % (11.7-14.4)
[2022-04-16 20:38] LABS: CLARITY,URINE HAZY (CLEAR); COLOR,URINE YELLOW (YELLOW); KETONES,URINE NEGATIVE (NEGATIVE); LEUKOCYTE ESTERASE ,URINE LARGE (NEGATIVE); NITRITE,URINE NEGATIVE (NEGATIVE); PROTEIN,URINE DIPSTICK 2+ (NEGATIVE); URINE UROBILINOGEN 0.2 mg/dL (0.2 - 1)
[2022-04-16 20:49] LABS: ALBUMIN 2.7 g/dL (3.5-5.0); ALBUMIN/GLOBULIN RATIO 0.5 (0.8-2.0); ALKALINE PHOSPHATASE 196 IU/L (40-150); ANION GAP 19.8 mmol/L (8-16); BLOOD UREA NITROGEN 39 mg/dL (7-26); BUN/CREATININE RATIO 21 (6-25); CALCIUM 10.4 mg/dL (8.4-10.2); CARBON DIOXIDE 23 mmol/L (22-29); CHLORIDE 95 mmol/L (98-107); CREATININE, SERUM 1.89 mg/dL (0.57-1.11); GLUCOSE 71 mg/dL (74-118); POTASSIUM 3.8 mmol/L (3.5-5.1); SODIUM 134 mmol/L (136-145)
[2022-04-16 20:50] LABS: ALANINE AMINOTRANSFERASE < 6 IU/L (0-55)
[2022-04-16 20:52] LABS: BACTERIA,URINE MANY /HPF; RBC,URINE 0-5 /HPF (0-5)
[2022-04-16 21:11] LABS: CREATINE KINASE < 7 IU/L (29-168)
[2022-04-16] MEDS ORDERED: CEFDINIR300 MG PO (21:32)
== END 2022-04-17 00:06 | disposition home or self-care (01) ==
LOC: ER 20:10
DX: R50.9 Fever, unspecified (principal); T83.511A Infection and inflammatory reaction due to indwelling urethral catheter, initial encounter; I10 Essential (primary) hypertension; E11.9 Type 2 diabetes mellitus without complications; I50.9 Heart failure, unspecified; D64.9 Anemia, unspecified; G47.00 Insomnia, unspecified; I69.991 Dysphagia following unspecified cerebrovascular disease; R13.10 Dysphagia, unspecified; Z86.718 Personal history of other venous thrombosis and embolism; Z85.038 Personal history of other malignant neoplasm of large intestine
CPT/HCPCS: 36415; 71045; 80053; 81001; 82550; 82553; 83605; 84484; 85025; 87040; 87071; 87086; 87186; 87205; 93005; 99284; J0696

== ENCOUNTER 2022-07-09 19:39 | Emergency (ER) | payer MEDICARE, OTHER ==
[~2022-07-09] VITALS: Ht 304.8 cm; Wt 68.9 kg
[~2022-07-09 19:39] MED LIST changes: +CEFDINIR300 MG PO
== END 2022-07-09 23:35 | disposition home or self-care (01) ==
LOC: ER 19:42
DX: Z46.6 Encounter for fitting and adjustment of urinary device (principal); N13.2 Hydronephrosis with renal and ureteral calculous obstruction; K76.0 Fatty (change of) liver, not elsewhere classified; M85.88 Other specified disorders of bone density and structure, other site
CPT/HCPCS: 74176; 99284

== ENCOUNTER 2022-07-18 12:24 | Emergency (ER) | payer MEDICARE, OTHER ==
[~2022-07-18] VITALS: Ht 152.4 cm; Wt 68.9 kg
[2022-07-18 13:02] LABS: BASOPHILS # (AUTO) 0.1 (0.0-0.1); BASOPHILS % 0.3 % (0.0-1.0); EOSINOPHILS # (AUTO) 0.1 (0.0-0.4); EOSINOPHILS % 0.4 % (0.0-6.0); HEMATOCRIT 39.8 % (34.2-44.1); HEMOGLOBIN 13.1 g/dL (12.0-16.0); LYMPHOCYTES # (AUTO) 1.6 (1.0-3.2); LYMPHOCYTES % 8.9 % (18.0-39.1); MEAN CORPUSCULAR HEMOGLOBIN 30.5 pg (28-32); MEAN CORPUSCULAR HGB CONC 32.9 g/dL (31-35); MEAN CORPUSCULAR VOLUME 92.6 fL (81-99); MONOCYTES # (AUTO) 0.6 (0.2-0.8); MONOCYTES % 3.5 % (4.4-11.3); NEUTROPHILS # (AUTO) 15.3 (2.1-6.9); NEUTROPHILS % 86.2 % (38.7-80.0); PLATELET COUNT 352 x10e3/uL (140-360); RED CELL DISTRIBUTION WIDTH 13.7 % (11.7-14.4)
[2022-07-18 13:13] LABS: ANION GAP 15.4 mmol/L (8-16); CALCIUM 9.3 mg/dL (8.4-10.2); CREATININE, SERUM 0.75 mg/dL (0.57-1.11); POTASSIUM 3.4 mmol/L (3.5-5.1)
[2022-07-18] MEDS ORDERED: IOPAMIDOL 370 MG/ML 100 ML INFUS..BTL INJ ONE (14:39)
[2022-07-18] MEDS ORDERED: Vancomycin IV 1 GM in SODIUM CHLORIDE 0.9% 250ML 250 ML IV STA (14:55)
[2022-07-18] MEDS ORDERED: METRONIDAZOLE 500MG/NS 100ML 100 ML IV STA (14:55)
== END 2022-07-18 21:33 | disposition other institution (70) ==
LOC: ER 12:30
DX: H05.011 Cellulitis of right orbit (principal); L03.213 Periorbital cellulitis; U07.1 COVID-19; I10 Essential (primary) hypertension; E11.9 Type 2 diabetes mellitus without complications; I50.9 Heart failure, unspecified; D64.9 Anemia, unspecified; Z85.038 Personal history of other malignant neoplasm of large intestine; Z86.73 Personal history of transient ischemic attack (TIA), and cerebral infarction without residual deficits; Z86.718 Personal history of other venous thrombosis and embolism
CPT/HCPCS: 36415; 70480; 70481; 80048; 85025; 87071; 87205; 99284; J3370; J7050; Q9967; U0002

== ENCOUNTER → 2023-11-16 | Day surgery (SDC) | payer MEDICARE, OTHER ==
[~2023-11-16] MED LIST changes: +ACETAMINOPHEN 1000 MG/100 ML 100 ML IV ONE; +BACLOFEN10 MG PO; +CETIRIZINE HCL5 MG PO; +DEXAMETHASONE SOD PHOS INJ 4 MG/ML SDV ONE; +DIFLUCAN100 MG PO; +EPHEDRINE SULFATE INJ 50 MG/ML VIAL ONE; +FENTANYL CITRATE/PF 100MCG/2 ML INJ ONE; +IOPAMIDOL 610MG/1ML 300 MG/ML VIAL IV ONE; +LANTUS 3ML100 UNITS/ SC; +LIDOCAINE HCL 2% LOCAL INJ 5 ML SDV VIAL INJ ONE; +ONDANSETRON HCL INJ 2MG/ML 2ML 2 MG/ML VIAL ONE; +OXYBUTYNIN CHLOR5 MG PO; +PHENYLEPHRINE HCL 1% 10 MG/ML VIAL ONE; +PROPOFOL IV EMULSION 10 MG/ML 20 ML VIAL ONE; +SEVOFLURANE INHAL SOLN 250 ML PEN BTL ONE; +ULTRAM 50MG50 MG PO
[2023-11-16 09:00] LABS: BASOPHILS # (AUTO) 0.1 (0.0-0.1); BASOPHILS % 0.8 % (0.0-1.0); EOSINOPHILS # (AUTO) 0.3 (0.0-0.4); EOSINOPHILS % 3.2 % (0.0-6.0); HEMOGLOBIN 11.2 g/dL (12.0-16.0); LYMPHOCYTES # (AUTO) 2.5 (1.0-3.2); LYMPHOCYTES % 27.5 % (18.0-39.1); MEAN CORPUSCULAR HEMOGLOBIN 30.9 pg (28-32); MEAN CORPUSCULAR HGB CONC 31.1 g/dL (31-35); MEAN CORPUSCULAR VOLUME 99.2 fL (81-99); MONOCYTES # (AUTO) 0.5 (0.2-0.8); MONOCYTES % 5.5 % (4.4-11.3); NEUTROPHILS # (AUTO) 5.6 (2.1-6.9); NEUTROPHILS % 62.8 % (38.7-80.0); PLATELET COUNT 236 x10e3/uL (140-360); RED BLOOD COUNT 3.63 x10e6/uL (3.6-5.1); RED CELL DISTRIBUTION WIDTH 14.9 % (11.7-14.4); WHITE BLOOD COUNT 8.97 x10e3/uL (4.8-10.8)
[2023-11-16 09:17] LABS: CALCIUM 9.2 mg/dL (8.4-10.2)
[2023-11-16] MEDS: LACTATED RINGER'S 1,000 ML ONE (09:18)
[2023-11-16] MEDS: GENTAMICIN 80MG/NS 100 ML 200 ML IV ONE (09:18)
[2023-11-16] MEDS: PHENAZOPYRIDINE HCL 100 MG TAB ONE (11:35)
[2023-11-16 12:55] VITALS: TEMP 97.2
[2023-11-16 17:10] VITALS: BP 116/62; PULSE 82; RESP 16; O2SAT 100
== END | disposition home or self-care (01) ==
LOC: OR 08:19
PROVIDERS: ATTEND Urology
DX: N20.0 Calculus of kidney (principal); N21.0 Calculus in bladder; Z43.5 Encounter for attention to cystostomy; R33.8 Other retention of urine; Z46.6 Encounter for fitting and adjustment of urinary device; N39.0 Urinary tract infection, site not specified; R80.9 Proteinuria, unspecified; E66.9 Obesity, unspecified; N39.46 Mixed incontinence; N31.9 Neuromuscular dysfunction of bladder, unspecified; N81.89 Other female genital prolapse; N13.30 Unspecified hydronephrosis; N81.10 Cystocele, unspecified; N95.2 Postmenopausal atrophic vaginitis; E11.22 Type 2 diabetes mellitus with diabetic chronic kidney disease; I12.9 Hypertensive chronic kidney disease with stage 1 through stage 4 chronic kidney disease, or unspecified chronic kidney disease; N18.9 Chronic kidney disease, unspecified; E78.5 Hyperlipidemia, unspecified; K21.9 Gastro-esophageal reflux disease without esophagitis; Z79.82 Long term (current) use of aspirin; Z79.4 Long term (current) use of insulin; Z79.84 Long term (current) use of oral hypoglycemic drugs; Z79.899 Other long term (current) drug therapy; Z86.711 Personal history of pulmonary embolism; Z86.718 Personal history of other venous thrombosis and embolism; Z86.73 Personal history of transient ischemic attack (TIA), and cerebral infarction without residual deficits
CPT/HCPCS: 36415; 51705; 52352; 71045; 74420; 80048; 82948; 85025; 87086; 87186; 88300; 93005; C1766; C1769 ×2; J0131; J1100; J1580; J2001; J2371; J2405; J2704; J3010; J7121; Q9967

== ENCOUNTER 2024-11-20 15:54 | Emergency (ER) | payer MEDICARE, OTHER ==
[~2024-11-20] VITALS: Ht 157.5 cm; Wt 70.8 kg
[~2024-11-20 15:54] MED LIST changes: -ACETAMINOPHEN 1000 MG/100 ML 100 ML IV ONE; -DEXAMETHASONE SOD PHOS INJ 4 MG/ML SDV ONE; -EPHEDRINE SULFATE INJ 50 MG/ML VIAL ONE; -FENTANYL CITRATE/PF 100MCG/2 ML INJ ONE; -IOPAMIDOL 610MG/1ML 300 MG/ML VIAL IV ONE; -LIDOCAINE HCL 2% LOCAL INJ 5 ML SDV VIAL INJ ONE; -ONDANSETRON HCL INJ 2MG/ML 2ML 2 MG/ML VIAL ONE; -PHENYLEPHRINE HCL 1% 10 MG/ML VIAL ONE; -PROPOFOL IV EMULSION 10 MG/ML 20 ML VIAL ONE; -SEVOFLURANE INHAL SOLN 250 ML PEN BTL ONE
[2024-11-20 16:33] VITALS: PULSE 102; RESP 16; TEMP 99.2
[2024-11-20] MEDS ORDERED: CEFDINIR300 MG PO (20:00)
[2024-11-20] MEDS: GENTAMICIN 80MG/NS 100 ML 100 ML IV ONE ×2 (20:37→21:35)
[2024-11-20 22:49] VITALS: BP 126/59; PULSE 99; RESP 16; O2SAT 100
== END 2024-11-20 23:14 | disposition home or self-care (01) ==
LOC: ER 17:38
DX: Z46.6 Encounter for fitting and adjustment of urinary device (principal); I10 Essential (primary) hypertension; E11.9 Type 2 diabetes mellitus without complications; I50.9 Heart failure, unspecified; D64.9 Anemia, unspecified; F32.A Depression, unspecified; G47.00 Insomnia, unspecified; H40.9 Unspecified glaucoma; Z86.73 Personal history of transient ischemic attack (TIA), and cerebral infarction without residual deficits; Z86.718 Personal history of other venous thrombosis and embolism; Z85.038 Personal history of other malignant neoplasm of large intestine; Z87.19 Personal history of other diseases of the digestive system
CPT/HCPCS: 51705; 87086; 87186; 99283; J1580